=== PATIENT | female | born 1950 | race Caucasian/White ===

== ENCOUNTER 2023-11-22 12:00 | Inpatient (IN) | payer MEDICARE, OTHER, SELFPAY ==
[2023-11-22] VITALS (30 sets, daily range): BP systolic 93–126; BP diastolic 63–92; BMI 33.4
[2023-11-22] MEDS: LOW STRENGTH ASPIRIN 81 MG PO ×6 (08:05→08:36)
--- NOTE | 2023-11-22 11:45 | PTCARENOTE ---
Pt received in IVU from tutorial laboratory supervisor team. Pt had cardiac cath through R femoral artery - manual pressure held for extended period by tutorial laboratory supervisor team, dressing dry and intact. Pt has redness in groin and under abd folds - this is MASD and not new per
pt. Pt has no complaints, understands strict bedrest instructions, has good pulse and normal sensation in R leg.
--- NOTE | 2023-11-22 11:59 | ITS.CL.CATH ---
Tire [employer]er - Catheterization
Cardiac Catheterization
Procedure Report:
RIGHT AND LEFT HEART CATHETERIZATION
Date of Procedure: November 22, 2023
Primary Care Physician: Dr. Jessica De La Cruz
Primary Commis Chef: Dr. Dion Gastelum
Procedures performed:
1: Coronary angiography
2: Left ventricular hemodynamic assessment
3: Right heart catheterization
INDICATION: The patient is a 73-year-old woman with a past medical history of hypertension, insulin-dependent diabetes, gout, prior cellulitis, obesity, and severe aortic stenosis. Echocardiography performed in November 2022 showed preserved LV
function with a mean gradient of 47 mmHg and eccentric mild to moderate mitral regurgitation. She presented to the [facility] emergency room in August with congestive heart failure with new A-fib and rapid ventricular response. She was
rate controlled and diuresed and discharged. Attempts to restore normal sinus rhythm were unsuccessful and she was readmitted with recurrent heart failure on October 23. She was again diuresed over a 2-week hospitalization followed by 1 week in
rehab. Cardioversion on amiodarone was reattempted but she went back into atrial fibrillation. Since being home she has felt better but is still not back to her baseline.
ACCESS: The patient was prepped and draped in usual sterile fashion. A 6 Taiwanese sheath was placed in the right common femoral artery using the Seldinger over the wire technique. A 6 Taiwanese sheath was then placed in the right common femoral vein
using the same technique.
HEMODYNAMIC FINDINGS (mmHg):
BASELINE
RA(a,v,m):*, 28, 25 patient in atrial fibrillation with HR 105-120; given IV lopressor 5mg X 2 during case
RV(s/d,EDP): 65/20, 28
PA(s/d/m): 68/31, 50
PCWP(a,v,m):*, 44, 34
Oxygen Saturations (mg/dl):
PA: 38% on room air
LV: 92% on room air
Cardiac Output/Index (l/min / l/min/m2):
Estimated Deja Method: 2.1 / 1.2
POST NTG
LV(s/d,EDP): 161/1 61/22, 28
Ao(s/d,m): 138/94, 112
Oxygen Saturations (mg/dl):
PA: 98% on 2 L of oxygen by nasal cannula
LV: 47% on 2 L of oxygen by nasal cannula
Cardiac Output/Index (l/min / l/min/m2):
Estimated Deja Method: 2.2 .2
VALVE HEMODYNAMICS:
Aortic Valve
peak to peak gradient (mmHg): 24
mean gradient (mmHg): 23
valve area (cm2): 0.5
ANGIOGRAPHIC FINDINGS:
Single-plane Left Ventriculography performed in the BUSTAMANTE projection:
Coronary Angiography:
Dominance: Right
Left Main: Medium caliber, widely patent.
Left Anterior Descending: The left anterior descending artery is a medium caliber vessel that gives rise to 1 major diagonal branch. The LAD is highly calcified in the proximal and mid segments including the takeoff of the large first diagonal
branch. The diagonal branch has smooth proximal 30 to 40% disease with normal distal flow. The LAD itself has a calcified smooth 50 to 60% stenosis at the diagonal branch takeoff. This is followed by 2 sequential smooth 50 to 60% lesions in the
midportion. The distal LAD is widely patent with normal flow.
Ramus Intermedius: Medium caliber vessel that is patent with mild luminal irregularities and normal flow.
Left Circumflex: The left circumflex is a medium caliber vessel that is a medium caliber nondominant vessel. The vessel is fairly calcified throughout the midportion and heavy calcification is noted in the mitral annulus. The proximal circumflex
gives rise to a tiny first OM and has smooth 40% proximal stenosis. This is followed by heavily calcified 70 to 80% stenosis before the takeoff of a branching distal obtuse marginal branch that has ARIN-3 flow.
Right Coronary: The right coronary artery is a medium caliber dominant vessel that gives rise to a medium caliber posterior descending artery that is widely patent. The right coronary artery is also fairly heavily calcified in the AV groove however
there appears to be no flow-limiting disease with normal flow in all vessels.
Fluoroscopy Time (min): 13.2
Radiation Dose (mGy): 548
DAP (Gy.cm2): 52
Closure device: None. The femoral sheaths were pulled and hemostasis achieved with manual pressure alone.
Complications: None
ASSESSMENT:
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
2: Severe aortic stenosis in the setting of low cardiac output.
3: Markedly elevated pulmonary pressures in the setting of low cardiac output with elevated left ventricular filling pressures.
CONCLUSIONS and RECOMMENDATIONS:
1: Admit for IV diuresis and better rate control and atrial fibrillation. Given her very low cardiac output and elevated filling pressures on surprise she is clinically as stable as she appears. I suspect her EF is dropped as it was last assessed
by echo on September 01.
2: Plan to repeat transthoracic echo tomorrow and consider TAVR versus SAVR with and without coronary revascularization. May need MATTHIAS to better define mechanism of mitral regurgitation. Echocardiography performed in November 2022 suggested eccentric
mild to moderate mitral regurgitation in the setting of preserved LV systolic function and normal sinus rhythm suggesting that the severe mitral regurgitation may be more related to her A-fib/RVR and low cardiac output. If this is the case then
consideration for TAVR as the initial intervention seems more reasonable.
Kamilla Briggs M.D.
Copy to: Dr. Jessica De La Cruz
--- NOTE | 2023-11-22 12:41 | CM ---
Chart reviewed. Patient is independent of ADLS, lives alone in a [address], [address] [facility], ambulates with a SPC and a rolling walker, patient is current with [facility]. Referral sent to [facility] to return to care. Referral sent to [facility]. Plan is
for the patient to return home with [facility]. CM to follow
[2023-11-22] MEDS: NOVOLOG FLEXPEN-MODERATE RESISTANCE SC ×2 (12:51→16:42)
[2023-11-22 12:52] LABS: Glucose - Point of Care 106 mg/dl (70-99)
[2023-11-22] MEDS: LASIX 40 MG IV (15:43)
[2023-11-22 16:30] LABS: Glucose - Point of Care 111 mg/dl (70-99)
[2023-11-22] MEDS: TOPROL XL 100 MG PO (18:04)
[2023-11-22] MEDS: CLARITIN 10 MG PO (18:04)
[2023-11-22] MEDS: ALDACTONE 25 MG PO (18:05)
[2023-11-22] MEDS: LIPITOR 40 MG PO (18:05)
[2023-11-22] MEDS: DESENEX/MITRAZOL/ZEASORB 1 APPLIC TOPICAL (20:02)
[2023-11-22] MEDS: TYLENOL 650 MG PO (20:02)
[2023-11-22] MEDS: GLUCOTROL 10 MG PO (20:02)
[2023-11-22 20:18] LABS: Urine Albumin Negative (Neg - Trace); Urine Bilirubin Negative (Negative); Urine Character Clear (Clear); Urine Color Yellow; Urine Glucose Negative (Negative); Urine Ketone Negative (Negative); Urine Leukocyte Negative (Negative); Urine Nitrite Negative (Negative); Urine Occult Blood Trace (Negative); Urine Specific Gravity 1.005 (<1.030); Urine Urobilinogen Negative (Neg - 1+)
--- NOTE | 2023-11-22 20:18 | PTCARENOTE ---
Pt developed cough and temp 99.7. No respiratory distress - SPO2 95% on room air. PA-C made aware - covid/flu/urinalysis sent to lab. Chest xray ordered for AM. Tylenol given.
[2023-11-22 20:25] LABS: Urine Squamous Cell >30 /LPF (Few)
[2023-11-22 20:26] LABS: Urine Red Blood Cell 0-2 /HPF (0-2); Urine White Cell 0-2 /HPF (0-5)
[2023-11-22 20:32] LABS: COVID-19 Antigen Negative (Negative)
[2023-11-22 21:10] LABS: Glucose - Point of Care 199 mg/dl (70-99)
[2023-11-22] MEDS: LEVEMIR 0.100000000000000006 UNITS SC (21:35)
[2023-11-23] VITALS (12 sets, daily range): BP systolic 92–123; BP diastolic 59–105; BMI 34.0
[2023-11-23 03:16] LABS: Hematocrit 39.5 % (37.0-47.0); Hemoglobin 12.9 g/dL (12.0-16.0); Mean Corp Hgb Conc. 32.7 g/dL (33.0-37.0); Mean Corpuscular Hgb 30.1 pg (27.0-31.0); Mean Corpuscular Volume 92.1 fL (81.0-99.0); Mean Platelet Volume 10.1 fL (7.4-10.4); Platelet Count 179 10^3/uL (130-400); Red Blood Cell Count 4.29 10^6/uL (4.20-5.40); Red Cell Dist. Width 14.4 % (11.5-14.5); White Blood Cell Count 7.1 10^3/uL (4.8-10.8)
[2023-11-23 03:31] LABS: Blood Urea Nitrogen 34 mg/dl (7-17); Calcium 8.9 mg/dl (8.4-10.2); Carbon Dioxide 26 mmol/L (22-30); Chloride 103 mmol/L (98-107); Estimated Creatinine Clearance 79 ml/min; Glucose 113 mg/dl (70-99); HDL Cholesterol 24 mg/dl; LDL Cholesterol, Calculated 36 mg/dl; Potassium 3.7 mmol/L (3.5-5.1); Sodium 138 mmol/L (135-145); Total Cholesterol 87 mg/dl (50-199); Triglyceride 139 mg/dl (10-149); Very Low Density Lipoprotein 27 mg/dl (0-30); eGFR > 60.00
--- NOTE | 2023-11-23 08:22 | W.PN.CARDCBS ---
Addendum entered and electronically signed by Idania Jasso MD 11/23/23 13:01:
I saw and examined the patient.
The Production Honing Machine Operator's note was reviewed and I agree with the note.
Comment:
No current complaints.
Patient with acute HFpEF - post LHC/RHC with LAD and LCx stenosis, markedly elevated filling pressures PCWP 34
Continue IV diuresis. Follow electrolytes.
Aortic valve stenosis and coronary disease as detailed below. Await echocardiogram to reassess mitral regurgitation which has varied from mild to moderate to moderate to severe at times. May eventually need MATTHIAS.
Productive Cough and Temp 99.6 with abnormal CXR left base opacity, COVID/Flu neg. Appreciate hospitalist consult.
Atrial fibrillation with increased rates. Metoprolol twice daily. She does have some wheezing. Continue to follow. No history of lung disease.
No current chest pain. Continue risk factor modification of two-vessel coronary disease. SAVR/CABG versus TAVR with PCI
Original Note:
Today's Communication / Plan
-
TTE today
c/s Hospitalist for ? pneumonia
continue IV diuresis, replete lytes
heart team to discuss plan for CAD/Valvular disease
Impression / Plan
-
Primary Care Physician: Dr. Jessica De La Cruz
Primary Company Truck Driver: Dr. Dion Gastelum
73-year-old woman with a past medical history of hypertension, insulin-dependent diabetes, gout, prior cellulitis, obesity, and severe aortic stenosis.� Echocardiography performed in November 2022 showed preserved LV function with a mean gradient of 47
mmHg and eccentric mild to moderate mitral regurgitation.� She presented to the [facility] emergency room in August with congestive heart failure with new A-fib and rapid ventricular response.� She was rate controlled and diuresed and
discharged.� Attempts to restore normal sinus rhythm were unsuccessful and she was readmitted with recurrent heart failure on October 23.� She was again diuresed over a 2-week hospitalization followed by 1 week in rehab.� Cardioversion on amiodarone
was reattempted but she went back into atrial fibrillation.� Since being home she has felt better but is still not back to her baseline.
Impression:
Acute on chronic HFpEF 50-55% by Echo August
Symptomatic Afib with RVR
2V CAD by cath 11/22/23
Severe Aortic stenosis MG 23mmHg, HOMERO 0.5cm2
Moderate - severe MR
HTN
HLD
DM
GERD
Gout
Plan:
Acute HFpEF - post LHC/RHC with LAD and LCx stenosis, markedly elevated filling pressures PCWP 34
Admitted for IV diuresis lasix 40 bid, continue, replete electrolytes, Check Mg
continue spironolactone metoprolol, not on PHILIP/ARB d/t low bp
Echo today to reassess EF as I suspect it has dropped
Productive Cough - o/n Temp 99.6 with abnormal CXR left base opacity, COVID/Flu neg, will check sputum cx, will c/s hospitalist
MR/ - Severe with low cardiac output. Echo today to reassess EF with low CI 1.2 and MR as it may be more severe
Echocardiography performed in November 2022 suggested eccentric mild to moderate mitral regurgitation in the setting of preserved LV systolic function and normal sinus rhythm suggesting that the severe mitral regurgitation may be more related to her
A-fib/RVR and low cardiac output.
If TTE today shows more severe MR, may need MATTHIAS for planning PCI/TAVR vs SAVR/CABG/MVR
uncontrolled Afib - rates still elevated, metoprolol xl increased to 100mg bid,
resume anticoagulation this am, groin stable
CAD - continue ASA, Statin LDL 36, metoprolol, poss PCI with TAVR if MR not severe
DM2- continue SSI, Levemir, glipizide, A1c pending
Progress Note - Company Truck Driver
Subjective
Date of Service: November 23, 2023
o/n events noted, productive cough with donald sputum, no cp, mild dyspnea
Objective
Labs:
11/23/23 02:16
11/23/23 02:16
Labs
Hgb 12.9 g/dL (12.0-16.0) 11/23/23 02:16
Hct 39.5 % (37.0-47.0) 11/23/23 02:16
Plt Count 179 10^3/uL (130-400) 11/23/23 02:16
Sodium 138 mmol/L (135-145) 11/23/23 02:16
Potassium 3.7 mmol/L (3.5-5.1) 11/23/23 02:16
BUN 34 mg/dl (7-17) H 11/23/23 02:16
Creatinine 0.6 mg/dL (0.6-1.0) 11/23/23 02:16
Glucose 113 mg/dl (70-99) H 11/23/23 02:16
Vital Signs and I&O:
Vital Signs
Temp Pulse Resp BP Pulse Ox
97.9 F 89 20 112/87 97
11/23/23 06:58 11/23/23 04:00 11/23/23 06:58 11/23/23 02:04 11/23/23 06:58
Vital Signs
Temp Pulse Resp BP Pulse Ox
97.9 F 89 20 112/87 97
11/23/23 06:58 11/23/23 04:00 11/23/23 06:58 11/23/23 02:04 11/23/23 06:58
Intake & Output
11/21/23 11/22/23 11/23/23 11/24/23
06:59 06:59 06:59 06:59
Intake Total 400 / 400
Output Total 850 / 850
Balance -450 / -450
Physical Exam
Physical Exam
NAD< AOX3
S1, S2, irreg irreg, III/ BARTOLO
coarse t/o with exp wheezes, bibasilar rales
SNTND bsx4 obese
No LE edema
R fem site
[2023-11-23 08:54] LABS: Glycohemoglobin (HgbA1c) 9.2 % (4.0-5.6)
[2023-11-23] MEDS: PROTONIX 40 MG PO (08:54)
[2023-11-23] MEDS: GLUCOTROL 10 MG PO (08:54)
[2023-11-23] MEDS: KCL 20 MEQ PO (08:54)
[2023-11-23] MEDS: TOPROL XL 100 MG PO ×2 (08:54→20:05)
[2023-11-23 08:55] LABS: Glucose - Point of Care 142 mg/dl (70-99)
[2023-11-23] MEDS: NOVOLOG FLEXPEN-MODERATE RESISTANCE SC (08:55)
[2023-11-23] MEDS: LASIX 40 MG IV ×2 (08:55→15:33)
[2023-11-23 08:59] LABS: Magnesium 1.7 mg/dl (1.6-2.3)
[2023-11-23] MEDS: DESENEX/MITRAZOL/ZEASORB 1 APPLIC TOPICAL ×2 (10:25→20:05)
[2023-11-23] MEDS: ELIQUIS 5 MG PO ×2 (10:26→20:05)
[2023-11-23 10:34] LABS: Procalcitonin < 0.05 ng/ml (0.0-0.25)
--- NOTE | 2023-11-23 11:40 | CON.HOSP ---
Family Physician
-
Family Physician: Jessica De La Cruz
Chief Complaint
-
Possible PNA
History of Present Illness
73 y/o F with PMHx:
Essential hypertension
DM2
Gout
Obesity due to excess calories
Severe
Mild-mod MR
Chronic HFpEF
CAD
HLD
GERD
Afib with RVR
who is hospitalized for A-fib with RVR and acute on chronic heart failure with preserved ejection fraction. Patient presented to the hospital for elective cardiac catheterization yesterday. She was in A-fib with RVR and felt to be in acute on
chronic heart failure with preserved ejection fraction and was therefore admitted. She also had two-vessel disease on cardiac cath as well as valvular disease that needed further investigation. The patient reported cough productive of thick
sputum. Since they gave her a sputum collection bottle this morning she has not had any sputum production. She denies chest pain, shortness of breath, nausea, vomiting, diarrhea, fevers, headache, visual disturbances, neck stiffness, rash, focal
neurological deficit, dysuria.
Medical History
Past Medical History
Past Medical History: Reports Other ( as per HPI)
Past Surgical History: Reports Other (N/A)
Social History
Tobacco: Non-smoker
Alcohol: None
Drug: None
Family History
Family History: Reviewed & Not Pertinent
Allergies / Home Medications
Allergies reflects when Allergies were last updated in [employer]
Home Medications with original date entered in [employer]
Allergy/Medication List:
Allergies
Allergy/AdvReac Type Severity Reaction Status Date / Time
hylan G-F 20 Allergy Swelling Verified 11/22/23 08:15
Home Medications
acetaminophen 325 mg capsule (Tylenol) 325 mg PO ONCE 11/22/23
apixaban 5 mg tablet (Eliquis) 5 mg PO BID 11/22/23
bumetanide 2 mg tablet 2 mg PO DAILY 11/22/23
coQ10 (ubiquinol) 100 mg capsule 100 mg PO DAILY 11/22/23
glipizide 10 mg tablet 10 mg PO BID 11/22/23
hydrocodone 5 mg-acetaminophen 325 mg tablet 1 tab PO Q6HPRN PRN PAIN 11/22/23
insulin detemir U-100 100 unit/mL (3 mL) subcutaneous pen (Levemir FlexPen) 10 unit SC HS 11/22/23
loratadine 10 mg tablet (Claritin) 10 mg PO QPM 11/22/23
meclizine 25 mg tablet 25 mg PO TIDPRN PRN dizzy 11/22/23
methocarbamol 500 mg tablet 500 mg PO TIDPRN PRN muscle spasm 11/22/23
metoprolol succinate 50 mg tablet,extended release 24 hr 75 mg PO BID 11/22/23
multivitamin 1 tab PO DAILY 11/22/23
omeprazole 20 mg tablet,delayed release 20 mg PO DAILY 11/22/23
oxybutynin chloride 10 mg tablet,extended release 24 hr 10 mg PO DAILY 11/22/23
simvastatin 40 mg tablet 40 mg PO QPM 11/22/23
spironolactone 25 mg tablet 25 mg PO QPM 11/22/23
tramadol 50 mg tablet 50 mg PO TIDPRN PRN PAIN 11/22/23
zolpidem 10 mg tablet (Ambien) 10 mg PO HSPRN PRN SLEEP 11/22/23
Review of Systems
-
History Source: Patient
A 12 point Review of Systems was completed except as noted: Yes
Physical Exam
Vital Signs
Vital Signs
Temp Pulse Resp BP Pulse Ox
97.9 F 113 20 123/79 97
11/23/23 06:58 11/23/23 11:00 11/23/23 06:58 11/23/23 07:00 11/23/23 06:58
Physical Exam
General: Other (.)
Laboratory Results
-
Laboratory Results
11/23/23 02:16
11/23/23 02:16
Impression / Plan
-
Gen: NAD, AAOx3.
Eyes: EOMI, PERRLA, no scleral icterus.
Neck: supple.
CV: tachy, irreg/irreg, +S1/S2, no m/r/g.
Resp: wheezes and rhonchi B/L
Abd: +BS, soft, NT, ND
Skin: No rashes. No LE edema.
Neuro: CN 2-12 intact, non-focal.
Psych: Normal mood and affect.
RHC/LHC 11/22/23:
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
2: Severe aortic stenosis in the setting of low cardiac output.
3: Markedly elevated pulmonary pressures in the setting of low cardiac output with elevated left ventricular filling pressures.
Productive cough:
-CXR: Minor left basilar opacification which could represent subsegmental atelectasis and/or pneumonia.
-procal < 0.05
-no documented fever this admission
-No leukocytosis
-no evidence of bacterial PNA at this time
-recommend incentive spirometer
Acute on chronic HFpEF:
-cont IV Lasix, daily wts, I/Os
-echo today
-cont BB/Aldactone
DM2:
-poorly controlled with a1c 9.2%
-Stop Glipizide while hospitalized. With A1c greater than 9% will likely be discharged on insulins only (and possibly metformin pending use of IV contrast)
-Will need Lantus tonight even if NPO (recommend to continue 10U)
-cont SSI/accuchecks
-c/s certified lactation educator
Afib with RVR:
-cont BB (higher than home dose)/Eliquis
Other problems:
Gout
Obesity due to excess calories: Encourage wt loss. Affects all aspects of care.
Severe
Mild-mod MR: Echo today to address severity of mitral regurgitation in the setting of low cardiac index.
CAD: 2V disease as per cath 11/22/23. Cont BB/statin
HLD: cont statin
GERD: Cont PPI
Primary team updated over the phone.
FULL/Eliquis
[2023-11-23] MEDS: MAGNESIUM OXIDE 500 MG PO (12:07)
[2023-11-23 13:45] LABS: Glucose - Point of Care 167 mg/dl (70-99)
--- NOTE | 2023-11-23 13:52 | PN.DE.MGMTRT ---
Insulin Management
- -
11/23/2023 Diabetes Management Consult
Patient s/p cardiac cath 11/21 with possible lll pneumonia. PMH HTN, aortic stenosis, HLD, type 2 diabetes. Prior to admission was taking levemir 10 units @ hs and glipizide 10 mg BID. A1C is 9.2%, cr .6, eGFR > 60.
Patient is alert, oriented and able to participate in discussion about diabetes control. She states she feels her A1C is elevated because she was getting meals on wheels and often it was pasta or sandwiches. Discussed starting Jardiance or Farxiga
based on cost. She is agreeable if she can afford it. Discussed if it is cost prohibitive for her we could stop levemir and start lantus which may provide 24 hour glucose lowering benefit. She again is agreeable. She does have a working glucose
monitor at home.
Diabetes History
- -
Type of Diabetes: 2
Pre-Admission Diabetes Regimen
11/23/23
02:16
Creatinine 0.6
Lab Results
Hemoglobin A1c 9.2 % (4.0-5.6) H 11/23/23 02:16
Insulin Pump Settings
IP Diabetes Regimen
11/22/23 11/22/23 11/23/23
16:29 21:09 02:16
Glucose 113 H
POC Glucose 111 H 199 H
11/23/23 11/23/23
08:53 13:44
Glucose
POC Glucose 142 H 167 H
Meal type: Breakfast
Meal type: Dinner
Amount consumed: 100%
Amount consumed: 100%
Patient Education
--- NOTE | 2023-11-23 14:25 | W.PN.UPDATE ---
Update Note
Progress Note Update
Patient with tachycardia, HRs in the 140s. Due to wheezing will leave Toprol XL at 100 mg BID and add Cardizem gtt starting at 10 mg/hr then titrate. Will ask echo team to check again later today to see if HR has improved and they can do echo.
--- NOTE | 2023-11-23 14:54 | CM ---
Pricing on Jardiance is $144.33 for 30 days
Farxiga is $137.51 for 30 days
Dapagliflozin is not covered.
Patient is agreeable to all costs. I placed a free 30 day coupon of Farxiga in her red discharge folder
[2023-11-23] MEDS: NOVOLOG FLEXPEN-MODERATE RESISTANCE 1 UNITS SC ×2 (15:20→18:07)
[2023-11-23] MEDS: FARXIGA PO (15:26)
[2023-11-23] MEDS: FARXIGA 10 MG PO (15:32)
[2023-11-23] MEDS: CARDIZEM 125 IV (15:32)
[2023-11-23] MEDS: CLARITIN 10 MG PO (17:35)
[2023-11-23] MEDS: LIPITOR 40 MG PO (17:35)
[2023-11-23] MEDS: ALDACTONE 25 MG PO (17:39)
[2023-11-23 17:57] LABS: Glucose - Point of Care 185 mg/dl (70-99)
--- NOTE | 2023-11-23 18:13 | PTCARENOTE ---
Pt sat OOB in chair most of the day. She remains in A-fib, Cardizem drip started this afternoon as ordered. HR 80-110's
[2023-11-23 19:08] LABS: Hepatitis C Antibody Negative (Negative)
[2023-11-23 21:24] LABS: Glucose - Point of Care 237 mg/dl (70-99)
--- NOTE | 2023-11-23 21:47 | PTCARENOTE ---
Assumed care. Patient in chair. A-FIB on Cardizem IV HR 81. Son at bedside, call nolen in reach
[2023-11-23] MEDS: TYLENOL 650 MG PO (23:17)
[2023-11-23] MEDS: LEVEMIR 0.100000000000000006 UNITS SC (23:17)
[2023-11-24] VITALS (8 sets, daily range): BP systolic 93–123; BP diastolic 68–90; PULSE 90–135; O2SAT 98; BMI 34.1
--- NOTE | 2023-11-24 00:05 | PTCARENOTE ---
Patient in bed resting. Tylenol given for arthritis in her knees. Howell sputum collected and sent. Cardizem infusing at 10mg/hr. Coughing intermittently, crackles right base, course breath sounds clears with coughing, denies SOB, POX 95% on room air
[2023-11-24] MEDS: CARDIZEM 125 IV (01:07)
[2023-11-24 04:05] LABS: Hematocrit 36.2 % (37.0-47.0); Hemoglobin 12.2 g/dL (12.0-16.0); Mean Corp Hgb Conc. 33.7 g/dL (33.0-37.0); Mean Corpuscular Volume 88.9 fL (81.0-99.0); Mean Platelet Volume 10.1 fL (7.4-10.4); Platelet Count 170 10^3/uL (130-400); Red Blood Cell Count 4.07 10^6/uL (4.20-5.40); Red Cell Dist. Width 14.2 % (11.5-14.5); White Blood Cell Count 6.6 10^3/uL (4.8-10.8)
[2023-11-24 04:29] LABS: Blood Urea Nitrogen 36 mg/dl (7-17); Calcium 9.2 mg/dl (8.4-10.2); Carbon Dioxide 23 mmol/L (22-30); Chloride 101 mmol/L (98-107); Estimated Creatinine Clearance 69 ml/min; Glucose 138 mg/dl (70-99); Magnesium 1.7 mg/dl (1.6-2.3); Potassium 3.5 mmol/L (3.5-5.1); Sodium 138 mmol/L (135-145); eGFR > 60.00
[2023-11-24 06:46] LABS: Glucose - Point of Care 112 mg/dl (70-99)
--- NOTE | 2023-11-24 07:15 | PN.DE.MGMTRT ---
Insulin Management
- -
11/24/2023 Diabetes Management Follow up
Patient s/p cardiac cath 11/21 with possible lll pneumonia. PMH HTN, aortic stenosis, HLD, type 2 diabetes. Prior to admission was taking levemir 10 units @ hs and glipizide 10 mg BID. A1C is 9.2%, cr .6, eGFR > 60.
Patient is alert, oriented and able to participate in discussion about diabetes control.
CM able to find cost of Farxiga which patient is agreeable to. Will continue Farxiga 10 mg daily. Only one elevation in glucose, 237 @ HS. Patient is NPO this AM, will continue current regimen.
Diabetes History
- -
Type of Diabetes: 2
Pre-Admission Diabetes Regimen
11/24/23
03:54
Creatinine 0.7
Lab Results
Hemoglobin A1c 9.2 % (4.0-5.6) H 11/23/23 02:16
Insulin Pump Settings
IP Diabetes Regimen
11/23/23 11/23/23 11/23/23
08:53 13:44 17:56
Glucose
POC Glucose 142 H 167 H 185 H
11/23/23 11/24/23 11/24/23
21:23 03:54 06:45
Glucose 138 H
POC Glucose 237 H 112 H
Meal type: Dinner
Meal type: Lunch
Meal type: Breakfast
Amount consumed: 100%
Amount consumed: 100%
Amount consumed: 100%
Patient Education
[2023-11-24] MEDS: NOVOLOG FLEXPEN-MODERATE RESISTANCE SC (07:37)
[2023-11-24] MEDS: DESENEX/MITRAZOL/ZEASORB 1 APPLIC TOPICAL ×2 (07:51→19:44)
[2023-11-24] MEDS: KCL 20 MEQ PO (07:52)
[2023-11-24] MEDS: TOPROL XL 100 MG PO ×2 (07:52→19:44)
[2023-11-24] MEDS: MAGNESIUM OXIDE 500 MG PO (07:52)
[2023-11-24] MEDS: PROTONIX 40 MG PO (07:52)
[2023-11-24] MEDS: ELIQUIS 5 MG PO ×2 (07:52→19:44)
[2023-11-24] MEDS: FARXIGA 10 MG PO (07:52)
[2023-11-24] MEDS: LASIX 40 MG IV (07:54)
--- NOTE | 2023-11-24 09:40 | CONSULT.CT ---
Addendum entered and electronically signed by PREETI Ray 11/24/23 14:44:
addition to PMH: uterine cancer s/p HERIBERTO, no chemo/XRT
Original Note:
Consultation
-
Date/Time Consultation Requested: 11/23
Date/Time Consultation Performed: 11/23 @ 1000
Requesting Provider: Franc Briggs
Performing Provider: Susy Avery
Reason for Consultation: surgical evaluation for aortic stenosis and coronary disease
Patient History
Physicians
Family Physician: Dorothy Lopez
Outpatient Ping Pong Table Assembler: Dr Gastelum
Inpatient Ping Pong Table Assembler: Dr. Briggs
History of Present Illness
Alyson Martinez is a 73 year old female electively admitted 11/21 for cardiac catheterization which reported two-vessel coronary disease. She was found to be in A-fib with rapid ventricular response and in acute on chronic heart failure, so was
admitted for further treatment. Patient with known aortic stenosis since 2022 and recent admission for decompensated heart failure in August 2023. She was aggressively diuresed and discharged. Patient was admitted to [facility] in
October 2023 with 30 pound weight gain and shortness of breath/fatigue. Patient underwent unsuccessful cardioversion (on Amiodarone) x 2. Mrs. Martinez was discharged to rehab x 1 week then discharged from rehab on . Patient reports a 30 pound
weight loss since August and currently requires walker for ambulatory assistance. Her baseline ambulatory status requires use of a cane. She is able to perform activities of daily living independently. Patient states she is limited with
ambulation due to her lumbar stenosis.
Past Medical History
Past Medical History: Other
Aortic stenosis
Mitral regurgitation
Hypertension
Hyperlipidemia
Obesity (BMI 34)
Atrial fibrillation status post cardioversion 2022
Chronic HFrEF (35%)
Type 2 diabetes (A1c 9.4)
Lumbar stenosis
Ambulatory dysfunction (uses cane)
Past Surgical History
Past Surgical History: Other
Bilateral knee replacements
Bilateral cataract extraction with intraocular lens implants
Cervical laminectomy C4-5
Family History
Mother: at Age
Father: at Age
Social History
Alcohol: None
Drug: None
Tobacco: Non-Smoker
Personal:
Living: Alone
Employment: Retired
Allergies
Allergy/AdvReac Type Severity Reaction Status Date / Time
hylan G-F 20 Allergy Swelling Verified 11/22/23 08:15
Home Medications
Medication Instructions Recorded Confirmed Type
acetaminophen 325 mg capsule 325 mg PO ONCE 11/22/23 11/22/23 History
(Tylenol)
apixaban 5 mg tablet (Eliquis) 5 mg PO BID 11/22/23 11/22/23 History
bumetanide 2 mg tablet 2 mg PO DAILY 11/22/23 11/22/23 History
coQ10 (ubiquinol) 100 mg capsule 100 mg PO DAILY 11/22/23 11/22/23 History
glipizide 10 mg tablet 10 mg PO BID 11/22/23 11/22/23 History
hydrocodone 5 mg-acetaminophen 325 1 tab PO Q6HPRN PRN PAIN 11/22/23 11/22/23 History
mg tablet
insulin detemir U-100 100 unit/mL 10 unit SC HS 11/22/23 11/22/23 History
(3 mL) subcutaneous pen (Levemir
FlexPen)
loratadine 10 mg tablet (Claritin) 10 mg PO QPM 11/22/23 11/22/23 History
meclizine 25 mg tablet 25 mg PO TIDPRN PRN dizzy 11/22/23 11/22/23 History
methocarbamol 500 mg tablet 500 mg PO TIDPRN PRN muscle spasm 11/22/23 11/22/23 History
metoprolol succinate 50 mg 75 mg PO BID 11/22/23 11/22/23 History
tablet,extended release 24 hr
multivitamin 1 tab PO DAILY 11/22/23 11/22/23 History
omeprazole 20 mg tablet,delayed 20 mg PO DAILY 11/22/23 11/22/23 History
release
oxybutynin chloride 10 mg 10 mg PO DAILY 11/22/23 11/22/23 History
tablet,extended release 24 hr
simvastatin 40 mg tablet 40 mg PO QPM 11/22/23 11/22/23 History
spironolactone 25 mg tablet 25 mg PO QPM 11/22/23 11/22/23 History
tramadol 50 mg tablet 50 mg PO TIDPRN PRN PAIN 11/22/23 11/22/23 History
zolpidem 10 mg tablet (Ambien) 10 mg PO HSPRN PRN SLEEP 11/22/23 11/22/23 History
Review of Systems
-
History Source: Patient
General: Reports Weight Gain and Fatigue
HEENT: Reports No Symptoms and Other (last dental exam: 2022 (no active infection))
Respiratory: Reports SOB (with exertion)
Cardiac: Reports No Symptoms
Abdomen/GI: Reports No Symptoms
: Reports No Symptoms
Musculoskeletal: Reports No Symptoms
Skin: Reports No Symptoms
Neurological: Reports No Symptoms
Vascular: Reports No Symptoms
Physical Exam
Vital Signs
Temp 97.5 F 11/24/23 06:43
Temp route: Oral 11/24/23 06:43
Pulse 68 11/24/23 07:00
Rhythm: Atrial fibrillation 11/23/23 20:00
With- Bundle Branch Block Confi 11/23/23 08:28
Resp Rate 16 11/24/23 06:43
Blood pressure 123/73 11/24/23 06:43
Blood pressure extremity used: Right upper arm 11/24/23 06:43
Position: Lying 11/24/23 06:43
MAP (cuff-Jose Monitor) 89 11/24/23 06:43
SaO2 93 11/24/23 06:43
Oxygen Mode of Delivery Room air 11/24/23 06:43
Can the patient verbally communicate their pain? Yes 11/24/23 00:17
Pain scale rating: Asleep 11/24/23 00:17
Actual Weight 79.2 kg 11/24/23 03:40
Body Mass Index (BMI) 34.1 11/24/23 03:40
Labs
11/24/23 03:54
11/24/23 03:54
Hemoglobin A1c 9.2 % (4.0-5.6) H 11/23/23 02:16
Urinalysis
Urine Color Yellow 11/22/23 20:10
Urine Clarity Clear (Clear) 11/22/23 20:10
Urine pH 7.0 (5.0-9.0) 11/22/23 20:10
Ur Specific [place] 1.005 (<1.030) 11/22/23 20:10
Urine Ketones Negative (Negative) 11/22/23 20:10
Ur Occult Blood Reflex Trace (Negative) A 11/22/23 20:10
Urine Bilirubin Negative (Negative) 11/22/23 20:10
Leukocyte Esterase Rfl Negative (Negative) 11/22/23 20:10
Urine RBC 0-2 /HPF (0-2) 11/22/23 20:10
Urine WBC (Reflex) 0-2 /HPF (0-5) 11/22/23 20:10
Ur Squamous Epith Cells >30 /LPF (Few) 11/22/23 20:10
Urine Glucose Negative (Negative) 11/22/23 20:10
Urine Albumin (Reflex) Negative (Neg - Trace) 11/22/23 20:10
Diagnostic Studies
Right and left heart catheterization 11/22/23:
RA 25; PA 68/31 (50); PCW 44; cardiac output 2.1/cardiac index 1.2
Left main: OK
LAD: 50-60% at diagonal takeoff with 50-60% mid stenosis
Ramus intermedius: Okay
Circumflex: 70-80% prior to distal OM
RCA: OK
TTE 11/22:
EF 35-40%
Dilated left atrium. Mildly reduced RV function. Mild mitral stenosis with mitral valve gradients 10/4. Moderate MR. Mild TR. Severe aortic stenosis with gradients 56/35 mmHg. HOMERO 0.75 cm. No AI. Mild PI
Exam
General: Well Developed, Well Nourished and Comfortable
HEENT: Normocephalic and PERRLA
Neck: Carotid Bruit (+transmission of murmur to base carotids)
Respiratory: Clear
Cardiac: S1/S2, Irregular Rhythm and Murmur (III/ BARTOLO right 2nd ICS>radiates throughout precordium)
GI: Soft, Non Tender, Normal Bowel Sounds and Other (Obese with pannus)
Rectal: Deferred by Provider
Skin: Warm and Dry
Neuro: AO x 3, No Motor Deficits and Nonfocal/Grossly Intact
Extremities: Pulses (+2/4 DP pulses B/L)
Lymph: No Lymphadenopathy
Psych: Calm
Assessment / Plan
-
73-year-old female with severe aortic stenosis, mild mitral stenosis with moderate mitral regurgitation, two-vessel coronary artery disease, chronic atrial fibrillation and HFrEF (EF 35%).
- CT chest w/o contrast to evaluate coronary anatomy and aortic valve
- Preoperative PT/OT evaluation
- panelipse
- carotid US
- STS risk calculation 8-10%
- Dr. Najera to discuss case with cardiology to determine TAVR/coronary stent/ablation versus open AVR/MVR/maze/left atrial exclusion/coronary bypass
Data Reviewed
-
EKG: Report Reviewed by me and Discussed with Physician
Composition Professor: Report Reviewed by me and Discussed with Physician
Echo: Report Reviewed by me and Discussed with Physician
Radiology: Report Reviewed by me and Discussed with Physician
Labs: Labs Reviewed by me and Discussed with Physician
--- NOTE | 2023-11-24 10:03 | W.PN.CARDCBS ---
Addendum entered and electronically signed by Alex Girard MD 11/24/23 15:00:
I saw and examined the patient.
The PANTRY ATTENDANT or PA's note was reviewed and I agree with the note.
Comment: General: Well developed, well nourished in NAD.
Neck: Supple, no JVD, HJR, carotids +2 B/L, no bruits bilaterally.
Heart: Non displaced PMI, irregular, 2/6 basal systolic murmur, No S3, S4, no rubs.
Lungs: Scattered rhonchi
Extremities: No clubbing, cyanosis or edema bilaterally.
Neuro: Grossly nonfocal, awake, alert and oriented x3.
Will try higher dose of IV Lasix 60 mg twice daily. Discussed with CT surgery as well as interventional cardiology and patient's primary eggs inspector Dr. Dion Gastelum. Will do MATTHIAS on Sunday 11/26 to further assess mitral regurgitation. If MR
appears functional and would improve with aortic valve surgery we will consider TAVR with possible PCI of LAD and circumflex before procedure. If patient has MR that is structural might consider AVR/MVR with CABG. With regards to atrial
fibrillation we will discontinue Cardizem given reduced ejection fraction and start amiodarone for rate control. Might consider eventual PVI or maze if patient has open heart surgery.
Addendum entered and electronically signed by Libby eJan PA-C 11/24/23 12:23:
Correction to below: A-fib felt to be persistent. Initially occurred 08/2023. Status post cardioversion twice with subsequent recurrence. Had been on Amio, however then was stopped with plan for rate control after 2 failed cardioversions.
Original Note:
Today's Communication / Plan
-
CT surgical eval
increase IV lasix to 60mg BID
replete K
consider addition of po amio, will attempt to wean off IV cardizem gtt as permanent AF
Impression / Plan
-
Primary Care Physician: Dr. Jessica De La Cruz
Primary Electrical And Electronic Assembler: Dr. Dion Gastelum
73-year-old woman with a past medical history of hypertension, insulin-dependent diabetes, gout, prior cellulitis, obesity, and severe aortic stenosis.� Echocardiography performed in November 2022 showed preserved LV function with a mean gradient of 47
mmHg and eccentric mild to moderate mitral regurgitation.� She presented to the [facility] emergency room in August with congestive heart failure with new A-fib and rapid ventricular response.� She was rate controlled and diuresed and
discharged.� Attempts to restore normal sinus rhythm were unsuccessful and she was readmitted with recurrent heart failure on October 23.� She was again diuresed over a 2-week hospitalization followed by 1 week in rehab.� Cardioversion on amiodarone
was reattempted but she went back into atrial fibrillation.� Since being home she has felt better but is still not back to her baseline.
Impression:
Acute on chronic HFpEF
Symptomatic Permanent Afib with RVR
2V CAD by cath 11/22/23
Severe Aortic stenosis MG 23mmHg, HOMERO 0.5cm2
Moderate - severe MR
HTN
HLD
DM
GERD
Gout
ECHO 11/23/2023: EF 35 to 40%, global hypokinesis, severely enlarged LA, moderately enlarged RA, mild MS with peak/mean gradients of 10/4 mmHg, moderate eccentric MR, severe with peak/mean gradients 56/35 mmHg, HOMERO 0.75 cm�, no AR, mild OK. New
reduction in EF compared to prior echo
Plan:
-Patient went left and right heart cath 11/23/2023 with LAD and left circumflex stenosis
-Also noted to have wedge of 34 and admitted post cath for diuresis. If weights are accurate, she is up a pound overnight. She was taking Bumex 2 mg p.o. daily prior to admission. Will increase diuretics to IV Lasix 60 mg twice daily.
-remains with wheezing on exam. no history of lung disease. ? cardiac wheezing. continue diuresis. appreciate hospitalist input, no evidence of bacterial PNA. covid/flu negative
-Creatinine stable. Replete potassium
-given echo with new reduction in EF - 35-40%, continue toprol, aldactone, farxiga. not able to add jonnathan/arb/arni due to hypotension
-was rapid in permanent afib yesterday afternoon and started on IV cardizem gtt. HRs now improved. on toprol 100mg BID. consider addition of po amiodarone for additional rate control and will attempt to DC IV cardizem gtt
-continue eliquis
-CT surgery to evaluate 2 V CAD/severe /mod MR - CABG/SAVR+/-MVR or TAVR/PCI
-continue asa, statin
-appreciate hospitalist mgmt of diabetes. hgbA1c 9.2%.
-d/w CT surgery
Progress Note - Electrical And Electronic Assembler
Subjective
Date of Service: November 24, 2023
Remains with wheezing. Denies chest pain, shortness of breath, palpitations
Objective
Labs:
11/24/23 03:54
11/24/23 03:54
Labs
Hgb 12.2 g/dL (12.0-16.0) 11/24/23 03:54
Hct 36.2 % (37.0-47.0) L 11/24/23 03:54
Plt Count 170 10^3/uL (130-400) 11/24/23 03:54
Sodium 138 mmol/L (135-145) 11/24/23 03:54
Potassium 3.5 mmol/L (3.5-5.1) 11/24/23 03:54
BUN 36 mg/dl (7-17) H 11/24/23 03:54
Creatinine 0.7 mg/dL (0.6-1.0) 11/24/23 03:54
Glucose 138 mg/dl (70-99) H 11/24/23 03:54
Vital Signs and I&O:
Vital Signs
Temp Pulse Resp BP Pulse Ox
97.5 F 68 16 123/73 93
11/24/23 06:43 11/24/23 07:00 11/24/23 06:43 11/24/23 06:43 11/24/23 06:43
Vital Signs
Temp Pulse Resp BP Pulse Ox
97.5 F 68 16 123/73 93
11/24/23 06:43 11/24/23 07:00 11/24/23 06:43 11/24/23 06:43 11/24/23 06:43
Intake & Output
11/22/23 11/23/23 11/24/23 11/25/23
07:59 07:59 07:59 07:59
Intake Total 400 / 400
Output Total 850 / 850 750 / 750
Balance -450 / -450 -750 / -750
Physical Exam
Physical Exam
GEN: No distress, awake, alert, oriented x3. sitting in chair
HEENT: supple, anicteric, mmm, eomi
LUNGS: Wheezes B/L
CV: Irreg, S1/S2, 2/6 murmur
ABD: soft, BS+, NT/ND
EXT: No cyanosis, clubbing. Trace edema of B/L LE
NEURO: Gross non-focal
SKIN: Warm, pink, dry. No rash
--- NOTE | 2023-11-24 11:09 | W.PN.UPDATE ---
Update Note
Progress Note Update
Procedure Type:�CABG + AVR
PERIOPERATIVE OUTCOME ESTIMATE %
Operative Mortality 8.74%
Morbidity & Mortality 29.1%
Stroke 2.4%
Renal Failure 5.8%
Reoperation 5.64%
Prolonged Ventilation 25.5%
Deep Sternal Wound Infection 0.406%
Long Hospital Stay (>14 days) 20.8%
Short Hospital Stay (<6 days)* 10%
*higher values reflect a better outcome
Procedure Type:�Isolated MVR
PERIOPERATIVE OUTCOME ESTIMATE %
Operative Mortality 10.2%
Morbidity & Mortality 22.1%
Stroke 2.13%
Renal Failure 4.71%
Reoperation 4.85%
Prolonged Ventilation 16.9%
Deep Sternal Wound Infection 0.124%
Long Hospital Stay (>14 days) 19.9%
Short Hospital Stay (<6 days)* 10.7%
*higher values reflect a better outcome
Clinical Summary
Planned Surgery: CABG + AVR, Urgent, First cardiovascular surgery
Demographics: 73 year old, female, 79.2kg, 152cm, BMI: 34.3 kg/m�
Lab Values: Creatinine: 0.7 mg/dL, Hematocrit: 36.2%, WBC Count: 6.6 10�/�L, Platelet Count: 147109 cells/�L
PreOp Medications: Oral diabetes control
Substance Abuse: Never smoker
Risk Factors / Comorbidities: Diabetes Mellitus , Hypertension
Cardiac Status: Acute and chronic heart failure, NYHA Class II, Ejection Fraction = 30%
Coronary Artery Disease: 2 vessels diseased, Unstable Angina
Valve Disease: Aortic Stenosis, Moderate MR
Arrhythmia: Recent A-fib, Persistent
There is no exact surgical STS option. Therefore, the MVR was calculated seperately
--- NOTE | 2023-11-24 11:09 | CM ---
Chart reviewed. Patient being worked up for a TAVR vs SAVR. Patient will need preoperative teaching once final decision is made. Patient is independent of ADLS, lives alone in a 1 STH, 4 MEY, ambulates with a SPC and a rolling walker and is
current with [facility]. Referral placed to resume care once medically stable for discharge. Plan is for the patient to return home with [facility]. CM to follow
--- NOTE | 2023-11-24 11:27 | W.PN.HOSP.TC ---
Today's Communication/Plan
-
see bold
Assessment / Plan
Assessment / Plan
Gen: NAD, AAOx3.
Eyes: EOMI, PERRLA, no scleral icterus.
Neck: supple.
CV: tachy, irreg/irreg, +S1/S2, no m/r/g.
Resp: wheezes and rhonchi B/L
Abd: +BS, soft, NT, ND
Skin: No rashes. No LE edema.
Neuro: CN 2-12 intact, non-focal.
Psych: Normal mood and affect.
RHC/LHC 11/22/23:
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
2: Severe aortic stenosis in the setting of low cardiac output.
3: Markedly elevated pulmonary pressures in the setting of low cardiac output with elevated left ventricular filling pressures.
Echo: �Normal left ventricular wall thickness. Normal left ventricular chamber size.
�Mildly reduced left ventricular systolic function. Left ventricular ejection
�fraction is 35-40% by Arreguin's method. 30% by volumetric assessment.� Global
�hypokinesis.
�Normal right ventricular size. Reduced right ventricular systolic function.
�Severely enlarged left atrium
�Moderately enlarged right atrium
�Mild mitral stenosis with peak and mean gradients of 10 and 4 mmHg.�
�Moderate eccentric mitral regurgitation
�Severe aortic stenosis. Peak/mean gradients across the aortic valve are 56/35
�mmHg.� Using an LVOT diameter of 1.9 cm, the HOMERO = .75cm2.� No aortic
�regurgitation is seen.
�Mild pulmonic regurgitation.
Acute on chronic HFrEF:
-echo above, notable for EF 30%, global hypokinesis, severe , mod MR, mild MS
-cont IV Lasix (increased dose of 60mg IV BID)
-daily wts, I/Os
-echo today
-cont BB/Aldactone
DM2:
-poorly controlled with a1c 9.2%
-cont Levemir/Farxiga
-cont SSI/accuchecks
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
Permanent Afib with RVR:
-cont BB (higher than home dose)/Eliquis
-currently on cardizem gtt, hopefully wean to off today
-cardiology considering Amio
Productive cough:
-CXR: Minor left basilar opacification which could represent subsegmental atelectasis and/or pneumonia.
-procal < 0.05
-no documented fever this admission
-No leukocytosis
-no evidence of bacterial PNA at this time
-cont incentive spirometer
Other problems:
Gout
Obesity due to excess calories: Encourage wt loss. Affects all aspects of care.
Severe
CAD: 2V disease as per cath 11/22/23. Cont BB/statin. CT surgery eval
HLD: cont statin
GERD: Cont PPI
Discussed with cardiology.
FULL/Eliquis
Total time spent on today's encounter was 50 minutes which included time spent in counseling the patient/family regarding diagnosis and treatment plan as listed above, goals of care, and symptom management. Case was discussed with nursing staff,
specialists, and care coordinators/case management. All labs and imaging personally reviewed by me. Remainder the time spent in detailed review of previous records, lab data, imaging, and other medical provider documentation.
Anticipated Discharge: > 48 hours
Subjective/Interval History
-
Date of Service: November 24, 2023
Still complains of cough. Denies chest pain or shortness of breath.
Objective Data
-
Labs:
Laboratory Results
11/24/23
03:54
WBC 6.6
Hgb 12.2
Hct 36.2 L
Plt Count 170
Sodium 138
Potassium 3.5
Chloride 101
Carbon Dioxide 23
BUN 36 H
Creatinine 0.7
Glucose 138 H
Calcium 9.2
Vital Signs:
Vital Signs
Temp Pulse Resp BP Pulse Ox
97.9 F 74 16 123/73 98
11/24/23 11:05 11/24/23 11:05 11/24/23 11:05 11/24/23 06:43 11/24/23 11:05
I&O
11/23/23 11/24/23 11/25/23
06:59 06:59 06:59
Intake Total 400 / 400
Output Total 850 / 850 750 / 750 600 / 600
Balance -450 / -450 -750 / -750 -600 / -600
[2023-11-24] MEDS: PACERONE 200 MG PO ×3 (11:56→22:07)
[2023-11-24] MEDS: SAFETUSSIN DM (SUGAR/ALCOHOL FREE) 200 MG PO ×2 (12:02→22:28)
[2023-11-24 13:42] LABS: Glucose - Point of Care 242 mg/dl (70-99)
[2023-11-24] MEDS: NOVOLOG FLEXPEN-MODERATE RESISTANCE 3 UNITS SC (14:04)
[2023-11-24] MEDS: LASIX 60 MG IV (16:25)
[2023-11-24] MEDS: FLUSH (NSS) 1 FLUSH IV (16:32)
[2023-11-24 17:54] LABS: Glucose - Point of Care 169 mg/dl (70-99)
[2023-11-24] MEDS: NOVOLOG FLEXPEN-MODERATE RESISTANCE 1 UNITS SC (18:03)
[2023-11-24] MEDS: CLARITIN 10 MG PO (18:04)
[2023-11-24] MEDS: LIPITOR 40 MG PO (18:04)
[2023-11-24] MEDS: ALDACTONE 25 MG PO (18:05)
[2023-11-24 21:27] LABS: Glucose - Point of Care 236 mg/dl (70-99)
[2023-11-24] MEDS: LEVEMIR 0.100000000000000006 UNITS SC (22:07)
--- NOTE | 2023-11-25 00:59 | PTCARENOTE ---
Patient ambulating in room w/ RW, and requires supervision assist. Gait steady. Tele remains Afib w/ BBBC and occasional PVCs, HR in the 80-100s. No complaints of chest pain. Patient w/ an occasional cough, and brining up donald thick sputum. Denies
any SOB. Patient aware of POC, call nolen in reach.
[2023-11-25 04:20] VITALS: BP 112/77
[2023-11-25 05:00] LABS: Magnesium 1.9 mg/dl (1.6-2.3)
[2023-11-25 07:50] VITALS: BP 111/62
--- NOTE | 2023-11-25 07:50 | W.PN.HOSP.TC ---
Today's Communication/Plan
-
see bold
Assessment / Plan
Assessment / Plan
Gen: NAD, AAOx3.
Eyes: EOMI, PERRLA, no scleral icterus.
Neck: supple.
CV: irreg/irreg, +S1/S2, no m/r/g.
Resp: mod wheezes and mild rhonchi B/L
Abd: +BS, soft, NT, ND
Skin: No rashes. No LE edema.
Neuro: remains CN 2-12 intact, non-focal.
Psych: Normal mood and affect.
RHC/LHC 11/22/23:
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
2: Severe aortic stenosis in the setting of low cardiac output.
3: Markedly elevated pulmonary pressures in the setting of low cardiac output with elevated left ventricular filling pressures.
Echo: �Normal left ventricular wall thickness. Normal left ventricular chamber size.
�Mildly reduced left ventricular systolic function. Left ventricular ejection
�fraction is 35-40% by Arreguin's method. 30% by volumetric assessment.� Global
�hypokinesis.
�Normal right ventricular size. Reduced right ventricular systolic function.
�Severely enlarged left atrium
�Moderately enlarged right atrium
�Mild mitral stenosis with peak and mean gradients of 10 and 4 mmHg.�
�Moderate eccentric mitral regurgitation
�Severe aortic stenosis. Peak/mean gradients across the aortic valve are 56/35
�mmHg.� Using an LVOT diameter of 1.9 cm, the HOMERO = .75cm2.� No aortic
�regurgitation is seen.
�Mild pulmonic regurgitation.
Acute on chronic HFrEF:
-echo above, notable for EF 30%, global hypokinesis, severe , mod MR, mild MS
-cont IV Lasix (increased dose of 60mg IV BID)
-daily wts, I/Os
-echo above
-cont BB/Aldactone
DM2:
-poorly controlled with a1c 9.2%
-cont Levemir/Farxiga
-cont SSI/accuchecks
-diabetes BONE CHAR PULLER following
Permanent Afib with RVR:
-cont BB (higher than home dose)/Eliquis/Amio
-was on cardizem gtt, now off
-cardiology following
-MATTHIAS 11/27/23
Productive cough:
-CXR: Minor left basilar opacification which could represent subsegmental atelectasis and/or pneumonia.
-procal < 0.05
-no documented fever this admission
-No leukocytosis
-no evidence of bacterial PNA at this time
-cont incentive spirometer
Other problems:
Gout
Obesity due to excess calories: Encourage wt loss. Affects all aspects of care.
CAD, severe , mod MR: 2V disease as per cath 11/22/23. Cont BB/statin. CT surgery following
HLD: cont statin
GERD: Cont PPI
FULL/Eliquis
Anticipated Discharge: > 48 hours
Subjective/Interval History
-
Date of Service: November 25, 2023
Denies CP/SOB.
Objective Data
-
Labs:
Laboratory Results
11/25/23
07:19
Sodium Pending
Potassium Pending
Chloride Pending
Carbon Dioxide Pending
BUN Pending
Creatinine Pending
Glucose Pending
Calcium Pending
Vital Signs:
Vital Signs
Temp Pulse Resp BP Pulse Ox
97.8 F 83 20 112/77 96
11/25/23 04:22 11/25/23 07:00 11/25/23 04:22 11/25/23 04:20 11/25/23 04:22
I&O
11/24/23 11/25/23 11/26/23
06:59 06:59 07:59
Intake Total 720 / 720
Output Total 750 / 750 1500 / 1500
Balance -750 / -750 -780 / -780
[2023-11-25 08:05] LABS: Glucose - Point of Care 100 mg/dl (70-99)
[2023-11-25 08:34] VITALS: BMI 33.7
[2023-11-25] MEDS: NOVOLOG FLEXPEN-MODERATE RESISTANCE SC ×2 (08:43→13:53)
[2023-11-25] MEDS: TOPROL XL 100 MG PO ×2 (08:44→20:05)
[2023-11-25] MEDS: PROTONIX 40 MG PO (08:44)
[2023-11-25] MEDS: LASIX 60 MG IV ×2 (08:44→16:02)
[2023-11-25] MEDS: MAGNESIUM OXIDE 500 MG PO (08:44)
[2023-11-25] MEDS: KCL 20 MEQ PO (08:44)
[2023-11-25] MEDS: FARXIGA 10 MG PO (08:44)
[2023-11-25] MEDS: ELIQUIS 5 MG PO ×2 (08:44→20:05)
[2023-11-25] MEDS: PACERONE 200 MG PO ×3 (08:44→21:59)
[2023-11-25] MEDS: DESENEX/MITRAZOL/ZEASORB 1 APPLIC TOPICAL ×2 (08:45→20:06)
[2023-11-25] MEDS: FLUSH (NSS) 2 FLUSH IV ×2 (08:45→16:03)
[2023-11-25] MEDS: SAFETUSSIN DM (SUGAR/ALCOHOL FREE) 200 MG PO ×3 (08:47→21:59)
--- NOTE | 2023-11-25 09:03 | W.PN.CARDCBS ---
Addendum entered and electronically signed by Alex Girard MD 11/25/23 12:00:
I saw and examined the patient.
The VACATION GUIDE or PA's note was reviewed and I agree with the note.
Comment: General: Well developed, well nourished in NAD.
Neck: Supple, no JVD, HJR, carotids +2 B/L, no bruits bilaterally.
Heart: Non displaced PMI, irregular, 2/6 basal systolic murmur, no S3, S4, no rubs.
Lungs: Scattered rhonchi
Abdomen: Normal bowel sounds, soft, non-tender, non-distended.
Extremities: No clubbing, cyanosis or edema bilaterally.
Neuro: Grossly nonfocal, awake, alert and oriented x3.
Will continue IV Lasix. Plan is for MATTHIAS on Sunday 11/26 to further assess mitral regurg. Consider TAVR/stenting if MR is felt to be functional.
Original Note:
Today's Communication / Plan
-
Continue IV Lasix
Follow wheezing
Continue Toprol, amiodarone, Eliquis
CT work up ongoing - imaging with severe L subclavian stenosis. consider increasing lipitor dose
Plan for MATTHIAS Monday to assess mitral valve
Impression / Plan
-
Primary Care Physician: Dr. Jessica De La Cruz
Primary Regulatory Product Manager: Dr. Dion Gastelum of [facility]
73-year-old woman with a past medical history of hypertension, insulin-dependent diabetes, gout, prior cellulitis, obesity, and severe aortic stenosis.� Echocardiography performed in November 2022 showed preserved LV function with a mean gradient of 47
mmHg and eccentric mild to moderate mitral regurgitation.� She presented to the [facility] emergency room in August with congestive heart failure with new A-fib and rapid ventricular response.� She was rate controlled and diuresed and
discharged.� Attempts to restore normal sinus rhythm were unsuccessful and she was readmitted with recurrent heart failure on October 23.� She was again diuresed over a 2-week hospitalization followed by 1 week in rehab.� Cardioversion on amiodarone
was reattempted but she went back into atrial fibrillation.� Since being home she has felt better but is still not back to her baseline.
Impression:
Acute on chronic HFpEF
Symptomatic Permanent Afib with RVR
2V CAD by cath 11/22/23
Severe Aortic stenosis MG 23mmHg, HOMERO 0.5cm2
Moderate - severe MR
HTN
HLD
DM
GERD
Gout
ECHO 11/23/2023: EF 35 to 40%, global hypokinesis, severely enlarged LA, moderately enlarged RA, mild MS with peak/mean gradients of 10/4 mmHg, moderate eccentric MR, severe with peak/mean gradients 56/35 mmHg, HOMERO 0.75 cm�, no AR, mild AL. New
reduction in EF compared to prior echo
Plan:
-Patient went left and right heart cath 11/23/2023 as part of TAVR eval with LAD and left circumflex stenosis
-Also noted to have wedge of 34 and admitted post cath for diuresis. diuretics increased to IV Lasix 60 mg twice daily on 11/23 with better response. she was taking bumex 2mg daily prior to admission
-remains with wheezing/rhonchi on exam. no history of lung disease. ? cardiac wheezing. Chest CT also with read of bibasilar PNA. appreciate hospitalist input, no evidence of bacterial PNA, procal negative. covid/flu negative. afebrile, without
leukocytosis
-BMP pending 11/24
-given echo with new reduction in EF - 35-40%, continue toprol, aldactone, farxiga. not able to add jonnathan/arb/arni due to hypotension
-HRs now controlled in afib on toprol 100mg BID. po amiodarone 200mg TID added 11/23
-continue eliquis
-appreciate CT surgical input. plan for MATTHIAS Monday to assess MR to determine if surgical vs percutaneous treatment better option for patient (SAVR+AVR+MVR vs TAVR+PCI)
-of note, imaging with evidence of severe high grade L subclavian stenosis and R carotid stenosis 50-69%
-LDL 36. consider increasing lipitor dose from 40mg QPM to 80mg QPM
-continue asa
-appreciate hospitalist mgmt of diabetes. hgbA1c 9.2%.
-d/w nursing
Progress Note - Regulatory Product Manager
Subjective
Date of Service: November 25, 2023
Patient remains with wheezing, however without complaints of shortness of breath. Denies chest pain or palpitations
Objective
Labs:
11/24/23 03:54
Labs
Hgb 12.2 g/dL (12.0-16.0) 11/24/23 03:54
Hct 36.2 % (37.0-47.0) L 11/24/23 03:54
Plt Count 170 10^3/uL (130-400) 11/24/23 03:54
Sodium 138 mmol/L (135-145) 11/24/23 03:54
Potassium 3.5 mmol/L (3.5-5.1) 11/24/23 03:54
BUN 36 mg/dl (7-17) H 11/24/23 03:54
Creatinine 0.7 mg/dL (0.6-1.0) 11/24/23 03:54
Glucose 138 mg/dl (70-99) H 11/24/23 03:54
Vital Signs and I&O:
Vital Signs
Temp Pulse Resp BP Pulse Ox
97.3 F 90 16 111/62 96
11/25/23 07:53 11/25/23 08:00 11/25/23 07:53 11/25/23 07:50 11/25/23 07:53
Vital Signs
Temp Pulse Resp BP Pulse Ox
97.3 F 90 16 111/62 96
11/25/23 07:53 11/25/23 08:00 11/25/23 07:53 11/25/23 07:50 11/25/23 07:53
Intake & Output
11/23/23 11/24/23 11/25/23 11/26/23
07:59 07:59 07:59 08:59
Intake Total 400 / 400 720 / 720 300 / 300
Output Total 850 / 850 750 / 750 1500 / 1500 300 / 300
Balance -450 / -450 -750 / -750 -780 / -780 0 / 0
Physical Exam
Physical Exam
GEN: No distress, awake, alert, oriented x3
HEENT: supple, anicteric, mmm, eomi
LUNGS: Wheezes B/L
CV: Irreg, S1/S2, 2/6 murmur
ABD: soft, BS+, NT/ND
EXT: No cyanosis, clubbing. Trace edema of B/L LE
NEURO: Gross non-focal
SKIN: Warm, pink, dry. No rash
[2023-11-25 09:06] LABS: Blood Urea Nitrogen 35 mg/dl (7-17); Calcium 9.3 mg/dl (8.4-10.2); Carbon Dioxide 30 mmol/L (22-30); Chloride 101 mmol/L (98-107); Estimated Creatinine Clearance 60 ml/min; Glucose 101 mg/dl (70-99); Potassium 3.4 mmol/L (3.5-5.1); Sodium 137 mmol/L (135-145); eGFR > 60.00
[2023-11-25] MEDS: KCL 40 MEQ PO (10:29)
[2023-11-25 11:23] VITALS: BP 105/64
[2023-11-25 13:49] LABS: Glucose - Point of Care 149 mg/dl (70-99)
[2023-11-25] MEDS: NOVOLOG FLEXPEN 2 UNITS SC ×2 (13:54→17:52)
[2023-11-25 15:57] VITALS: BP 112/76
--- NOTE | 2023-11-25 17:24 | PTCARENOTE ---
The patient has been oob to the chair and ambulating to the bathroom all shift, supervision with a RW. Her vital signs remain stable. Afib noted on the monitor. She has a moist productive cough that produces donald sputum. Scattered course rhonchi
noted throughout her lungs. Robitussin has been given per order.
[2023-11-25 17:26] LABS: Glucose - Point of Care 160 mg/dl (70-99)
--- NOTE | 2023-11-25 17:27 | W.PN.UPDATE ---
Update Note
Progress Note Update
Noted carotid US with 50-69% YOSVANY stenosis and <50% LICA stenosis.
Ct chest withlarge plaque at origen of left subclavian artery with severe stenosis. Awaiting results of MATTHIAS (scheduled for 11/26) for final recommendations.
[2023-11-25] MEDS: ALDACTONE 25 MG PO (17:52)
[2023-11-25] MEDS: NOVOLOG FLEXPEN-MODERATE RESISTANCE 1 UNITS SC (17:52)
[2023-11-25] MEDS: LIPITOR 40 MG PO (17:52)
[2023-11-25] MEDS: CLARITIN 10 MG PO (17:52)
[2023-11-25 19:26] VITALS: BP 109/78
[2023-11-25 21:28] LABS: Glucose - Point of Care 255 mg/dl (70-99)
[2023-11-25] MEDS: LEVEMIR 0.100000000000000006 UNITS SC (21:53)
[2023-11-25 21:58] VITALS: BP 129/93
[2023-11-26] VITALS (8 sets, daily range): BP systolic 114–141; BP diastolic 72–99; PULSE 91; BMI 33.4
--- NOTE | 2023-11-26 00:37 | PTCARENOTE ---
No complaints CP/discomfort, VSS, A-fib on the monitor. Moist productive cough present, lungs coarse with inspiratory wheeze at bases, RA pulse ox 98%. Medicated with Robitussin per pt.'s request. Pt. sits OOB in the chair when awake, ambulates
with assist x 1 & RW with steady gait. Pt. currently sleeping.
[2023-11-26 05:22] LABS: Blood Urea Nitrogen 44 mg/dl (7-17); Calcium 9.3 mg/dl (8.4-10.2); Carbon Dioxide 29 mmol/L (22-30); Chloride 102 mmol/L (98-107); Estimated Creatinine Clearance 53 ml/min; Glucose 137 mg/dl (70-99); Potassium 4.1 mmol/L (3.5-5.1); Sodium 138 mmol/L (135-145); eGFR > 60.00
[2023-11-26 07:34] LABS: Glucose - Point of Care 122 mg/dl (70-99)
[2023-11-26] MEDS: PACERONE 200 MG PO ×3 (08:42→22:13)
[2023-11-26] MEDS: KCL 20 MEQ PO (08:42)
[2023-11-26] MEDS: PROTONIX 40 MG PO (08:42)
[2023-11-26] MEDS: TOPROL XL 100 MG PO ×2 (08:42→19:32)
[2023-11-26] MEDS: ELIQUIS 5 MG PO ×2 (08:42→19:32)
[2023-11-26] MEDS: MAGNESIUM OXIDE 500 MG PO (08:42)
[2023-11-26] MEDS: FARXIGA 10 MG PO (08:42)
[2023-11-26] MEDS: LASIX 60 MG IV ×2 (08:42→16:17)
[2023-11-26] MEDS: FLUSH (NSS) 2 FLUSH IV ×2 (08:43→16:17)
[2023-11-26] MEDS: TYLENOL 650 MG PO ×2 (08:46→22:17)
[2023-11-26] MEDS: NOVOLOG FLEXPEN-MODERATE RESISTANCE SC (09:46)
[2023-11-26] MEDS: NOVOLOG FLEXPEN 2 UNITS SC ×3 (09:47→18:33)
[2023-11-26] MEDS: DESENEX/MITRAZOL/ZEASORB 1 APPLIC TOPICAL ×2 (09:47→19:33)
[2023-11-26] MEDS: SAFETUSSIN DM (SUGAR/ALCOHOL FREE) 200 MG PO ×2 (10:29→22:17)
--- NOTE | 2023-11-26 10:56 | W.PN.HOSP.TC ---
Today's Communication/Plan
-
see bold
Assessment / Plan
Assessment / Plan
Gen: NAD, AAOx3.
Eyes: EOMI, PERRLA, no scleral icterus.
Neck: supple.
CV: remains irreg/irreg, +S1/S2, no m/r/g.
Resp: mild wheezes
Abd: +BS, soft, NT, ND
Skin: No rashes.
Neuro: continues to remain CN 2-12 intact, non-focal.
Psych: Normal mood and affect.
RHC/LHC 11/22/23:
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
2: Severe aortic stenosis in the setting of low cardiac output.
3: Markedly elevated pulmonary pressures in the setting of low cardiac output with elevated left ventricular filling pressures.
Echo: �Normal left ventricular wall thickness. Normal left ventricular chamber size.
�Mildly reduced left ventricular systolic function. Left ventricular ejection
�fraction is 35-40% by Arreguin's method. 30% by volumetric assessment.� Global
�hypokinesis.
�Normal right ventricular size. Reduced right ventricular systolic function.
�Severely enlarged left atrium
�Moderately enlarged right atrium
�Mild mitral stenosis with peak and mean gradients of 10 and 4 mmHg.�
�Moderate eccentric mitral regurgitation
�Severe aortic stenosis. Peak/mean gradients across the aortic valve are 56/35
�mmHg.� Using an LVOT diameter of 1.9 cm, the HOMERO = .75cm2.� No aortic
�regurgitation is seen.
�Mild pulmonic regurgitation.
Acute on chronic HFrEF:
-echo above, notable for EF 30%, global hypokinesis, severe , mod MR, mild MS
-cont IV Lasix 60mg IV BID
-daily wts, I/Os
-echo above
-cont BB/Aldactone
DM2:
-poorly controlled with a1c 9.2%
-cont Levemir/premeal Novolog/Farxiga
-cont SSI/accuchecks
-diabetes CARE NAVIGATOR following
Permanent Afib with RVR:
-cont BB (higher than home dose)/Eliquis/Amio
-was on cardizem gtt, now off
-cardiology following
-MATTHIAS 11/27/23
Productive cough:
-CXR: Minor left basilar opacification which could represent subsegmental atelectasis and/or pneumonia.
-procal < 0.05
-no documented fever this admission
-No leukocytosis
-no evidence of bacterial PNA at this time
-cont incentive spirometer
Other problems:
Gout
Obesity due to excess calories: Encourage wt loss. Affects all aspects of care.
CAD, severe , mod MR: 2V disease as per cath 11/22/23. Cont BB/statin. CT surgery following.
HLD: cont statin
GERD: Cont PPI
FULL/Eliquis
Anticipated Discharge: > 48 hours
Subjective/Interval History
-
Date of Service: November 26, 2023
No new complaints.
Objective Data
-
Labs:
Laboratory Results
11/26/23
04:31
Sodium 138
Potassium 4.1
Chloride 102
Carbon Dioxide 29
BUN 44 H
Creatinine 0.9
Glucose 137 H
Calcium 9.3
Vital Signs:
Vital Signs
Temp Pulse Resp BP Pulse Ox
97.1 F 86 20 114/92 96
11/26/23 07:43 11/26/23 07:31 11/26/23 07:43 11/26/23 07:31 11/26/23 07:43
I&O
11/25/23 11/26/23 11/27/23
05:59 06:59 06:59
Intake Total
Output Total 650 / 650
Balance -650 / -650
[2023-11-26 12:46] LABS: Glucose - Point of Care 177 mg/dl (70-99)
--- NOTE | 2023-11-26 13:05 | W.PN.CARDCBS ---
Today's Communication / Plan
-
Continue IV Lasix
Add lisinopril
For MATTHIAS on 11/26 to assess MR and consider whether TAVR could be done and MR would improve
Impression / Plan
-
Primary Care Physician: Dr. Jessica De La Cruz
Primary Medical Oncologist: Dr. Dion Gastelum of [facility]
73-year-old woman with a past medical history of hypertension, insulin-dependent diabetes, gout, prior cellulitis, obesity, and severe aortic stenosis.� Echocardiography performed in November 2022 showed preserved LV function with a mean gradient of 47
mmHg and eccentric mild to moderate mitral regurgitation.� She presented to the [facility] emergency room in August with congestive heart failure with new A-fib and rapid ventricular response.� She was rate controlled and diuresed and
discharged.� Attempts to restore normal sinus rhythm were unsuccessful and she was readmitted with recurrent heart failure on October 23.� She was again diuresed over a 2-week hospitalization followed by 1 week in rehab.� Cardioversion on amiodarone
was reattempted but she went back into atrial fibrillation.� Since being home she has felt better but is still not back to her baseline.
Impression:
Acute on chronic HFpEF
Symptomatic Permanent Afib with RVR
2V CAD by cath 11/22/23
Severe Aortic stenosis MG 23mmHg, HOMERO 0.5cm2
Moderate - severe MR
severe high grade L subclavian stenosis and R carotid stenosis 50-69%
HTN
HLD
DM
GERD
Gout
ECHO 11/23/2023: EF 35 to 40%, global hypokinesis, severely enlarged LA, moderately enlarged RA, mild MS with peak/mean gradients of 10/4 mmHg, moderate eccentric MR, severe with peak/mean gradients 56/35 mmHg, HOMERO 0.75 cm�, no AR, mild KS. New
reduction in EF compared to prior echo
Catheterization 11/22/2023
ASSESSMENT:
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
2: Severe aortic stenosis in the setting of low cardiac output.
3: Markedly elevated pulmonary pressures in the setting of low cardiac output with elevated left ventricular filling pressures.
Plan:
She has improved significant with IV diuresis
Consider change to oral Lasix in the next 24 hours
Plan is for MATTHIAS on 11/26 to further assess MR
If MR is felt to be functional and would improve with TAVR, will plan for stenting followed by TAVR workup as outpt.
continue toprol, aldactone, farxiga.
Will add PHILIP inhibitor now that blood pressure is improved
HRs now controlled in afib on toprol 100mg BID. po amiodarone 200mg TID added 11/23 and Cardizem was discontinued
continue eliquis
of note, imaging with evidence of severe high grade L subclavian stenosis and R carotid stenosis 50-69%
LDL 36. cont Lipitor
Progress Note - Medical Oncologist
Subjective
Date of Service: November 26, 2023
No chest pain or shortness of breath
Objective
Labs:
11/24/23 03:54
11/26/23 04:31
Labs
Hgb 12.2 g/dL (12.0-16.0) 11/24/23 03:54
Hct 36.2 % (37.0-47.0) L 11/24/23 03:54
Plt Count 170 10^3/uL (130-400) 11/24/23 03:54
Sodium 138 mmol/L (135-145) 11/26/23 04:31
Potassium 4.1 mmol/L (3.5-5.1) 11/26/23 04:31
BUN 44 mg/dl (7-17) H 11/26/23 04:31
Creatinine 0.9 mg/dL (0.6-1.0) 11/26/23 04:31
Glucose 137 mg/dl (70-99) H 11/26/23 04:31
Vital Signs and I&O:
Vital Signs
Temp Pulse Resp BP Pulse Ox
97.8 F 77 16 121/99 96
11/26/23 11:21 11/26/23 12:00 11/26/23 11:21 11/26/23 11:20 11/26/23 11:21
Vital Signs
Temp Pulse Resp BP Pulse Ox
97.8 F 77 16 121/99 96
11/26/23 11:21 11/26/23 12:00 11/26/23 11:21 11/26/23 11:20 11/26/23 11:21
Intake & Output
11/24/23 11/25/23 11/26/23 11/27/23
05:59 05:59 06:59 06:59
Intake Total
Output Total 650 / 650
Balance -650 / -650
Physical Exam
Physical Exam
General: Well developed, well nourished in NAD.
Neck: Supple, no JVD, HJR, carotids +2 B/L, no bruits bilaterally.
Heart: Non displaced PMI, irregular, 2/6 basal systolic murmur, no S3, S4, no rubs.
Lungs: Clear to auscultation bilaterally, no wheeze, rhonchi, rubs bilaterally,
normal expiratory phase.
Extremities: No clubbing, cyanosis or edema bilaterally.
Neuro: Grossly nonfocal, awake, alert and oriented x3.
[2023-11-26] MEDS: NOVOLOG FLEXPEN-MODERATE RESISTANCE 1 UNITS SC ×2 (13:33→18:33)
[2023-11-26] MEDS: ZESTRIL 2.5 MG PO (14:38)
[2023-11-26 18:07] LABS: Glucose - Point of Care 177 mg/dl (70-99)
[2023-11-26] MEDS: LIPITOR 40 MG PO (18:32)
[2023-11-26] MEDS: CLARITIN 10 MG PO (18:32)
[2023-11-26] MEDS: ALDACTONE 25 MG PO (18:32)
--- NOTE | 2023-11-26 18:40 | PTCARENOTE ---
No changes since previous assessment. VSS, Afib noted on the monitor. The patient remains stable. She has been frequently ambulating, with a RW, in the room and oob to the chair the majority of the shift.
[2023-11-26 21:36] LABS: Glucose - Point of Care 283 mg/dl (70-99)
[2023-11-26] MEDS: LEVEMIR 0.100000000000000006 UNITS SC (22:13)
[2023-11-27] VITALS (8 sets, daily range): BP systolic 98–116; BP diastolic 62–97; BMI 33.6; BMI 33.4
[2023-11-27 04:51] LABS: Blood Urea Nitrogen 56 mg/dl (7-17); Calcium 9.1 mg/dl (8.4-10.2); Carbon Dioxide 28 mmol/L (22-30); Chloride 100 mmol/L (98-107); Estimated Creatinine Clearance 43 ml/min; Glucose 157 mg/dl (70-99); Potassium 4.2 mmol/L (3.5-5.1); Sodium 136 mmol/L (135-145); eGFR 53.72
--- NOTE | 2023-11-27 05:00 | PTCARENOTE ---
No complaints CP or any discomfort overnight, VSS, A-fib with BBC on the monitor. Pt. NPO for MATTHIAS today; understanding of plan of care verbalized.
[2023-11-27] MEDS: ELIQUIS 5 MG PO (07:46)
[2023-11-27] MEDS: PACERONE 200 MG PO ×3 (07:46→23:08)
[2023-11-27] MEDS: TOPROL XL 100 MG PO ×2 (07:47→19:33)
[2023-11-27] MEDS: DUONEB 3 ML INH ×2 (09:18→21:48)
--- NOTE | 2023-11-27 09:20 | W.PN.HOSP.TC ---
Today's Communication/Plan
-
IV Lasix. MATTHIAS. ID eval
Assessment / Plan
Assessment / Plan
Gen: NAD, AAOx3.
Eyes: EOMI, PERRLA, no scleral icterus.
Neck: supple.
CV: remains irreg/irreg, +S1/S2, no m/r/g.
Resp: mild wheezes
Abd: +BS, soft, NT, ND
Skin: No rashes.
Neuro: continues to remain CN 2-12 intact, non-focal.
Psych: Normal mood and affect.
A/P:
RHC/LHC 11/22/23:
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
2: Severe aortic stenosis in the setting of low cardiac output.
3: Markedly elevated pulmonary pressures in the setting of low cardiac output with elevated left ventricular filling pressures.
Echo: �Normal left ventricular wall thickness. Normal left ventricular chamber size.
�Mildly reduced left ventricular systolic function. Left ventricular ejection
�fraction is 35-40% by Arreguin's method. 30% by volumetric assessment.� Global
�hypokinesis.
�Normal right ventricular size. Reduced right ventricular systolic function.
�Severely enlarged left atrium
�Moderately enlarged right atrium
�Mild mitral stenosis with peak and mean gradients of 10 and 4 mmHg.�
�Moderate eccentric mitral regurgitation
�Severe aortic stenosis. Peak/mean gradients across the aortic valve are 56/35
�mmHg.� Using an LVOT diameter of 1.9 cm, the HOMERO = .75cm2.� No aortic
�regurgitation is seen.
�Mild pulmonic regurgitation.
Acute on chronic HFrEF:
-Patient transferred to the hospital service few days ago.
-echo above, notable for EF 30%, global hypokinesis, severe , mod MR, mild MS
-cont IV Lasix 60mg IV BID
-daily wts, I/Os
-echo above
-cont BB/Aldactone
Vegetations on mitral valve-concerns for infective endocarditis versus other etiology:
-MATTHIAS shows vegetation on the mitral valve today
-Blood cultures taken
-Discussed with cardiology today on 11/26
-Will request ID consultation
-Hold off on antibiotic, patient looks nontoxic and remains afebrile.
DM2:
-poorly controlled with a1c 9.2%
-cont Levemir/premeal Novolog/Farxiga
-cont SSI/accuchecks
-diabetes FIRE EXTINGUISHER REPAIRER INSPECTOR following
Permanent Afib with RVR:
-cont BB (higher than home dose)/Eliquis/Amio
-was on cardizem gtt, now off
-cardiology following
-MATTHIAS 11/27/23
Productive cough:
-CXR: Minor left basilar opacification which could represent subsegmental atelectasis and/or pneumonia.
-procal < 0.05
-no documented fever this admission
-No leukocytosis
-no evidence of bacterial PNA at this time
-cont incentive spirometer
Other problems:
Gout
Obesity due to excess calories: Encourage wt loss. Affects all aspects of care.
CAD, severe , mod MR: 2V disease as per cath 11/22/23. Cont BB/statin. CT surgery following.
HLD: cont statin
GERD: Cont PPI
FULL/Eliquis
Anticipated Discharge: > 48 hours
Subjective/Interval History
-
Date of Service: November 27, 2023
Patient has any worsening shortness of breath. Remains afebrile.
Objective Data
-
Labs:
Laboratory Results
11/27/23
03:35
Sodium 136
Potassium 4.2
Chloride 100
Carbon Dioxide 28
BUN 56 H
Creatinine 1.1 H
Glucose 157 H
Calcium 9.1
Vital Signs:
Vital Signs
Temp Pulse Resp BP Pulse Ox
96.8 F L 66 16 116/97 99
11/27/23 07:09 11/27/23 09:16 11/27/23 09:16 11/27/23 03:29 11/27/23 09:16
I&O
11/26/23 11/27/23 11/28/23
06:59 06:59 06:59
Intake Total 240 / 240
Output Total 1525 / 1525
Balance -1285 / -1285
Review of Systems
-
All other systems: Reviewed and negative
--- NOTE | 2023-11-27 10:32 | PN.DE.MGMTRT ---
Insulin Management
- -
11/27/2023: Diabetes Management F/U:
Pt admitted 11/21 with Acute on chronic HFpEF, s/p cardiac cath--> 2V CAD. Pt NPO this AM for MATTHIAS today.
PMH includes T2DM, was taking Levemir 10 units @ hs and glipizide 10 mg BID, FARM[employer]. A1C is 9.2%, cr .6, eGFR > 60.
Patient is A/O x3, sitting up in chair, pleasant, offers no complaints, able to participate in discussion about diabetes control and management.
Premeal glucose ranged from 120 to 170 throughout the weakened and noted for elevations at HS >200
Will increase AC NovoLog to 4 units and Levemir to 12 units. Change to low corrective insulin with meals. Continue Farxiga 10 mg daily.
Use corrective insulin while NPO and resume AC insulin when diet is restarted.
Pt reports she has a working meter at home with enough supplies.
Diabetes History
- -
Type of Diabetes: 2 requiring insulin
Pre-Admission Diabetes Regimen
11/27/23
03:35
Creatinine 1.1 H
Lab Results
Hemoglobin A1c 9.2 % (4.0-5.6) H 11/23/23 02:16
Insulin Pump Settings
IP Diabetes Regimen
11/26/23 11/26/23 11/26/23
12:44 18:06 21:34
Glucose
POC Glucose 177 H 177 H 283 H
11/27/23
03:35
Glucose 157 H
POC Glucose
Meal type: Dinner
Meal type: Lunch
Amount consumed: 100%
Amount consumed: 85%
Patient Education
--- NOTE | 2023-11-27 10:44 | W.PN.UPDATE ---
Update Note
Progress Note Update
She arrived bronchospastic to the quality control lab technician which impoved with angelita. MASON completed without complication.
Mason showed small vegetation on the anterior mitral leaflet, moderate to severe MR, Severe (on appearance) EF 40%.
Findings discussed with Dr Qiu.
[2023-11-27] MEDS: KCL 20 MEQ PO (11:25)
[2023-11-27] MEDS: MAGNESIUM OXIDE 500 MG PO (11:25)
[2023-11-27] MEDS: PROTONIX 40 MG PO (11:25)
[2023-11-27] MEDS: FARXIGA 10 MG PO (11:29)
[2023-11-27] MEDS: ZESTRIL 2.5 MG PO (11:35)
[2023-11-27] MEDS: LASIX 60 MG IV (11:35)
[2023-11-27] MEDS: DESENEX/MITRAZOL/ZEASORB 1 APPLIC TOPICAL ×2 (11:42→19:35)
--- NOTE | 2023-11-27 11:43 | PTCARENOTE ---
Rec'd Pt post MATTHIAS, A,A+Ox3, no complaints, VSS.
[2023-11-27] MEDS: NOVOLOG FLEXPEN SC (11:48)
[2023-11-27] MEDS: NOVOLOG FLEXPEN-MODERATE RESISTANCE SC (11:49)
--- NOTE | 2023-11-27 11:55 | W.PN.CARDCBS ---
Addendum entered and electronically signed by Alex Girard MD 11/27/23 13:45:
I saw and examined the patient.
The SOFTWARE MAINTENANCE ENGINEER or PA's note was reviewed and I agree with the note.
Comment: General: Well developed, well nourished in NAD.
Neck: Supple, no JVD, HJR, carotids +2 B/L, no bruits bilaterally.
Heart: Non displaced PMI, irregular, 2/6 systolic murmur through precordium, No S3, S4, no rubs.
Lungs: Scattered rhonchi
Extremities: No clubbing, cyanosis or edema bilaterally.
Neuro: Grossly nonfocal, awake, alert and oriented x3.
Reviewed MATTHIAS which reveals possible vegetation versus torn mitral cord. This may be an old vegetation. There is severe MR which would not improve with TAVR. 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 Likely needs AVR/MVR/CABG. Timing
to be determined. Will check blood cultures. Infectious disease has been consulted as well.
Original Note:
Today's Communication / Plan
-
Check blood cultures x2
ID consulted
Check ECG
Impression / Plan
-
Primary Care Physician: Dr. Jessica De La Cruz
Primary Bag Turner: Dr. Dion Gastelum of [facility]
Impression:
Acute on chronic HFrEF
CM EF 35-40% by echo 11/23/23
Symptomatic Permanent Afib with RVR
2V CAD by cath 11/22/23
Severe Aortic stenosis MG 23mmHg, HOMERO 0.5cm2
Moderate - severe MR
severe high grade L subclavian stenosis and R carotid stenosis 50-69%
HTN
HLD
DM
GERD
Gout
Possible mitral valve vegetation by echo 11/27/23
ECHO 11/23/23: EF 35 to 40%, global hypokinesis, severely enlarged LA, moderately enlarged RA, mild MS with peak/mean gradients of 10/4 mmHg, moderate eccentric MR, severe with peak/mean gradients 56/35 mmHg, HOMERO 0.75 cm�, no AR, mild SD. New
reduction in EF compared to prior echo
MATTHIAS 11/27/23: EF 40%, mild global hypokinesis with slight owrsening in septum, normal RV size with reduced systolic function, severe MR with thin, filamentous, hypermobile density concerning for a vegetation on the anterior mitral valve leaflet.
Plan:
-Patient came to for a cath on 11/22/23 and was found to have LAD and Circ disease. Patient was then admitted for diuresis and ongoing work-up of severe and MR.
-Weight is down about 2 lbs this admission with Lasix 60 mg IV BID diuresis. Patient was taking Bumex 2 mg PO daily prior to admission. Dry weight unknown. Cre up to 1.1 on 11/27/23. Will hold afternoon dose of Lasix on 11/27/23.
-Patient had MATTHIAS 11/27/23 and EF is stable at 40%. MR appears severe and there was a thin, filamentous, hypermobile density concerning for a vegetation on the anterior mitral valve leaflet. Check blood cultures x2 now.
-Hospitalist attending notified of MATTHIAS findings and ID consulted 11/27/23
-Patient was also being evaluated for TAVR vs SAVR. CT surgery saw the patient this admission
- EF 35-40% this admission. EF previously normal at [facility] in 11/2022. CM regimen includes Toprol XL 100 mg BID (had been 75 mg BID prior to admission), Toprol XL 25 mg daily (outpatient dose), lisinopril 2.5 mg daily (new this admission) and Farxiga 10
mg daily (new this admission)
-Patient with h/o permanent Afib on admission. Outpatient dose of Eliquis 5 mg BID resumed 11/23/23. Rates increased and patient symptomatic so Toprol XL dose increased and amiodarone 200 mg TID added 11/24/23. Patient has received a 1.8 gram load as of
11/27/23. Check ECG, QTc was 498 ms on 11/24/23
-Carotid u/s imaging with evidence of severe high grade left subclavian stenosis and right carotid stenosis 50-69%
-LDL 36. Cont atorvastatin 40 mg daily which is new this admission because patient was taking simvastatin 40 mg daily prior to admission
HPI: 73-year-old woman with a past medical history of hypertension, insulin-dependent diabetes, gout, prior cellulitis, obesity, and severe aortic stenosis.� Echocardiography performed in November 2022 showed preserved LV function with a mean gradient
of 47 mmHg and eccentric mild to moderate mitral regurgitation.� She presented to the [facility] emergency room in August with congestive heart failure with new A-fib and rapid ventricular response.� She was rate controlled and diuresed
and discharged.� Attempts to restore normal sinus rhythm were unsuccessful and she was readmitted with recurrent heart failure on October 23.� She was again diuresed over a 2-week hospitalization followed by 1 week in rehab.� Cardioversion on
amiodarone was reattempted but she went back into atrial fibrillation.� Since being home she has felt better but is still not back to her baseline.
Progress Note - Bag Turner
Subjective
Date of Service: November 27, 2023
No chest pain
Objective
Labs:
11/24/23 03:54
11/27/23 03:35
Labs
Hgb 12.2 g/dL (12.0-16.0) 11/24/23 03:54
Hct 36.2 % (37.0-47.0) L 11/24/23 03:54
Plt Count 170 10^3/uL (130-400) 11/24/23 03:54
Sodium 136 mmol/L (135-145) 11/27/23 03:35
Potassium 4.2 mmol/L (3.5-5.1) 11/27/23 03:35
BUN 56 mg/dl (7-17) H 11/27/23 03:35
Creatinine 1.1 mg/dL (0.6-1.0) H 11/27/23 03:35
Glucose 157 mg/dl (70-99) H 11/27/23 03:35
Vital Signs and I&O:
Vital Signs
Temp Pulse Resp BP Pulse Ox
97.9 F 66 20 116/97 99
11/27/23 11:51 11/27/23 09:16 11/27/23 11:51 11/27/23 03:29 11/27/23 09:16
Vital Signs
Temp Pulse Resp BP Pulse Ox
97.9 F 66 20 116/97 99
11/27/23 11:51 11/27/23 09:16 11/27/23 11:51 11/27/23 03:29 11/27/23 09:16
Intake & Output
11/25/23 11/26/23 11/27/23 11/28/23
05:59 06:59 06:59 06:59
Intake Total 240 / 240
Output Total 1525 / 1525
Balance -1285 / -1285
Physical Exam
Physical Exam
General: NAD
HEENT: EOMI
Heart: Irreg irreg, 2/6 basal systolic murmur
Lungs: CTA B/L
Extremities: No edema B/L LE
Neuro: Grossly nonfocal
[2023-11-27] MEDS: NOVOLOG FLEXPEN-LOW RESISTANCE SC (12:51)
[2023-11-27 12:52] LABS: Glucose - Point of Care 136 mg/dl (70-99)
[2023-11-27] MEDS: NOVOLOG FLEXPEN 4 UNITS SC ×2 (13:00→18:26)
--- NOTE | 2023-11-27 13:04 | CON.ID ---
Consultation
-
Date/Time Consultation Requested: 11/27/23 10:34
Date/Time Consultation Performed: 11/27/23 13:04
Requesting Provider: Dr Pelaez
Performing Provider: Dr Chneg
Reason for Consultation: mitral valve vegetations- r/o IE
Chief Complaint / Past History
Chief Complaint
afib with rvr
History of Present Illness
Ms Martinez is a 73 year old female with past medical history of uterine cancer s/p HERIBERTO, no chemo/XRT, afib wiht RVR, chf, uncontrolled dm2 who presented here for elective cardiac catheterization; cath notable for two vessel disease and valvular
disease. Reports her weight has been variable recently with a diagnosed of decompensated heart failure managed with aggressive dicuresis. Known lumbar stenosis and chronic back pain. On arrival denied: chest pain, shortness of breath, nausea,
vomiting, diarrhea, fevers, headache, visual disturbances, neck stiffness, rash, focal neurological deficit, dysuria. She complained of a productive cough on arrival which is onoing. Has lived in [place] her entire life. No previous episodes of
bacteremia she is aware of. Cellulitis history was remote. No significant time around farm animals.
Since arrival here 11/22/23 (7 days ago) there are no documented fevers, bp overall stable, wbc count 11/22 7.1 and 11/23 6.6, hgb 12, plt normal, there was no differential done, cr on arrival 0.7 now 1.1, a1c 9.2, procalcitonin <0.05, LFTs have not been
checked, UA >30 squamous cells and no pyuria, vascular US: no significant stenosis, orthopantogram: 'No periapical radiolucency identified at this time to suggest periapical abscess formation.' CT chest 11/23 read as bilbasilar pneumonia L>R, a single
blood culture is done thus far - second in progress, sputum culture was usual resp fatou, she has been on miconazole but no system antibiotics throughout this time. MATTHIAS: severe MR: with a possible vegetation, severe , normal TV, normal PV,
patient is undergoing evaluation for possible valve replacemetns.
Past History
Additional Past Medical History:
Aortic stenosis
Mitral regurgitation
Hypertension
Hyperlipidemia
Obesity (BMI 34)
Atrial fibrillation status post cardioversion 2022
Chronic HFrEF (35%)
Type 2 diabetes (A1c 9.4)
Lumbar stenosis
Ambulatory dysfunction (uses cane)
Additional Past Surgical History:
BL knee replacements
cataract exraction
cervical laminectomy c4-5
Allergy History:
hylan G-F 20 Allergy (Verified 11/22/23 08:15)
Swelling
Medications Reviewed: Yes
Social History
Tobacco: Non-Smoker
Alcohol: None
Drug: None
Family History
Family History: Not Pertinent
Review of Systems
Review of Systems
General: Negative Fever or Chills
All systems: All other systems were reviewed and were negative
Vital Signs
Temp Pulse Resp BP Pulse Ox
97.9 F 66 20 116/97 99
11/27/23 11:51 11/27/23 09:16 11/27/23 11:51 11/27/23 03:29 11/27/23 09:16
Physical Exam
Lab / Diagnostic Study Results
11/24/23 03:54
11/27/23 03:35
Procalcitonin < 0.05 ng/ml (0.0-0.25) 11/23/23 09:45
Ur Squamous Epith Cells >30 /LPF (Few) 11/22/23 20:10
Microbiology Results
Micro:
11/27/23 12:17 Blood Culture - Pending
Blood/Venous
11/23/23 23:25 Respiratory Culture - Final
Tracheal Aspirate Usual Respiratory Fatou
Gram Stain - Final
11/22/23 20:09 Influenza Types A & B (YUMIKO) - Final
Nasal Swab Negative for Influenza A & B, NAAT
Negative results must be combined with clinical observations
and patient history.
Nucleic Acid Amplification test (NAAT)performed on the
[employer] platform.
Assessment / Plan
Assessment for Possible Endocarditis - possible vegetation on MATTHIAS
history of uterine cancer s/p HERIBERTO, no chemo/XRT
- agree with blood cultures, send a third set in the AM
- has been afebrile x 7days here
- check CBC with differential, CMP, RF, NADIYA, esr, crp, legionella urine antigen; note negative procalcitonin
- EKG - no blocks
- would not start empiric antibiotics at this time, follow cultures
--- NOTE | 2023-11-27 13:19 | CM ---
Chart reviewed. Patient is independent of ADLS, lives alone in a [address], 4 [place], ambulates with a SPC also has a walker. Patient is current with [facility]. Patient went for a MATTHIAS today. Blood cultures pending. Patient waiting on TAVR vs SAVR.
CM to follow
[2023-11-27] MEDS: LASIX IV (15:47)
--- NOTE | 2023-11-27 16:06 | W.PN.UPDATE ---
Update Note
Progress Note Update
I had a long discussion with the patient and her son. Aware of our findings on MATTHIAS. Will need AVR + MVrR (probably replacement) + CABG x 2 + LA MAZE and LAAE. We went over the risks and benefits as well as the STS risk. She was well informed and all
questions were answered. She accepts the risks and wishes to move forward. Tentative plan for surgery on Monday with me. This will allow her time to wash out her eliquis/farxiga etc.
Thank you for involving me in the care of this patient. Please feel free to contact me with any questions or concerns.
Guido Najera MD, MS
Cardiothoracic Surgeon
[facility]
This dictation was created using the [employer] dictation system. Please excuse any grammatical, typographical, or 'sound alike' errors.
[2023-11-27] MEDS: VENTOLIN NEBULES 2.5 MG INH (16:19)
--- NOTE | 2023-11-27 16:33 | W.PN.UPDATE ---
Update Note
Progress Note Update
Patient's MATTHIAS was reviewed with Dr. Najera. Due to the results found on MATTHIAS, patient will be taken to the [facility] on Friday December 01, 2023. Patient's eliquis, farxiga, and lisinopril were discontinued. PFTs ordered. Type and screen to be resent .
Consent obtained.
Christina ÁLVAREZ
Cardiac Surgery
[2023-11-27] MEDS: TYLENOL 650 MG PO ×2 (17:45→23:09)
[2023-11-27] MEDS: ALDACTONE 25 MG PO (17:46)
[2023-11-27] MEDS: CLARITIN 10 MG PO (17:46)
[2023-11-27] MEDS: LIPITOR 40 MG PO (17:46)
[2023-11-27 18:25] LABS: Glucose - Point of Care 164 mg/dl (70-99)
[2023-11-27] MEDS: NOVOLOG FLEXPEN-LOW RESISTANCE 1 UNITS SC (18:26)
[2023-11-27 21:35] LABS: Glucose - Point of Care 270 mg/dl (70-99)
[2023-11-27] MEDS: LEVEMIR 0.119999999999999996 UNITS SC (23:08)
--- NOTE | 2023-11-27 23:49 | PTCARENOTE ---
Pt pleasant. Assessment noted as documented. Tele- afib. HR 80-90s. Pt c/o sore throat. Tylenol administered. Pt states relief. No c/o CP/discomfort. Currently in bed; call callum w/in reach.
[2023-11-28] VITALS (10 sets, daily range): BP systolic 93–128; BP diastolic 59–92; PULSE 95; BMI 33.4
[2023-11-28 05:29] LABS: % Basophils 0.4 % (0-2); % Eosinophils 1.8 % (0-6); % Immature Granulocytes 0.2 % (0-0.5); % Lymphocytes 27.7 % (20.5-51.1); % Monocytes 5.8 % (1.7-9.3); % Neutrophils 64.1 % (42.2-75.2); Absolute Eosinophils 0.2 10^3/uL (0-0.7); Absolute Lymphocytes 2.3 10^3/uL (1.2-3.4); Absolute Monocytes 0.5 10^3/uL (0.1-0.6); Absolute Neutrophils 5.2 10^3/uL (1.4-6.5); Hematocrit 37.1 % (37.0-47.0); Mean Corp Hgb Conc. 32.3 g/dL (33.0-37.0); Mean Corpuscular Hgb 29.9 pg (27.0-31.0); Mean Corpuscular Volume 92.5 fL (81.0-99.0); Mean Platelet Volume 9.9 fL (7.4-10.4); Nucleated Red Blood Cells % 0 %; Platelet Count 201 10^3/uL (130-400); Red Blood Cell Count 4.01 10^6/uL (4.20-5.40); Red Cell Dist. Width 14.6 % (11.5-14.5); White Blood Cell Count 8.2 10^3/uL (4.8-10.8)
[2023-11-28 05:50] LABS: ALT (SGPT) 30 U/L (0-35); AST (SGOT) 39 U/L (14-36); Albumin 3.8 g/dl (3.5-5.0); Alkaline Phosphatase 96 U/L (38-126); Blood Urea Nitrogen 55 mg/dl (7-17); Calcium 9.3 mg/dl (8.4-10.2); Carbon Dioxide 25 mmol/L (22-30); Chloride 103 mmol/L (98-107); Estimated Creatinine Clearance 53 ml/min; Glucose 144 mg/dl (70-99); Potassium 5.1 mmol/L (3.5-5.1); Sodium 135 mmol/L (135-145); Total Protein 7.1 g/dl (6.3-8.2); eGFR > 60.00
[2023-11-28 07:00] LABS: Glucose - Point of Care 127 mg/dl (70-99)
[2023-11-28 07:31] LABS: Erythrocyte Sed Rate 29 mm/hour (0-20)
--- NOTE | 2023-11-28 08:10 | PN.DE.MGMTRT ---
Insulin Management
- -
11/28/2023: Diabetes Management F/U:
Patient seen this morning, A/O x3, sitting up in bed, pleasant, offers no complaints. Awaiting CT surgery on Monday.
Glucose stable, premeal range 127 to 164, HS glucose trended up to 270
Will increase dinner time NovoLog dose to 6 units and resume Farxiga 10mg daily.
Cont NovoLog 4 units before breakfast/ lunch, Levemir to 12 units @HS, and low corrective insulin with meals.
Pt reports she has a working meter at home with enough supplies.
Diabetes History
- -
Type of Diabetes: 2 requiring insulin
Pre-Admission Diabetes Regimen
11/28/23
05:06
Creatinine 0.9
Lab Results
Hemoglobin A1c 9.2 % (4.0-5.6) H 11/23/23 02:16
Insulin Pump Settings
IP Diabetes Regimen
11/27/23 11/27/23 11/27/23
12:50 18:24 21:32
Glucose
POC Glucose 136 H 164 H 270 H
11/28/23 11/28/23
05:06 06:58
Glucose 144 H
POC Glucose 127 H
Meal type: Dinner
Amount consumed: 100%
Patient Education
[2023-11-28] MEDS: NOVOLOG FLEXPEN-LOW RESISTANCE SC ×2 (08:37→18:05)
--- NOTE | 2023-11-28 08:37 | W.PN.HOSP.TC ---
Addendum entered and electronically signed by Shola Pelaez MD 11/28/23 12:25:
Hypokalemia, resolved
Rise in creatinine only
Original Note:
Today's Communication/Plan
-
IV Lasix.
Assessment / Plan
Assessment / Plan
Gen: NAD, AAOx3.
Eyes: EOMI, PERRLA, no scleral icterus.
Neck: supple.
CV: remains irreg/irreg, +S1/S2, no m/r/g.
Resp: mild wheezes
Abd: +BS, soft, NT, ND
Skin: No rashes.
Neuro: continues to remain CN 2-12 intact, non-focal.
Psych: Normal mood and affect.
A/P:
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
-Plan for CABG along with AVR and probable mitral valve replacement along with MAZE procedure this coming Thursday 11/30.
-Holding Eliquis, lisinopril, and Farxiga.
-Follow-up cultures
-Appreciated CT surgery input
Vegetations on mitral valve-concerns for infective endocarditis versus mitral valve chordal rupture:
-MATTHIAS shows possible vegetation on the mitral valve
-Blood cultures taken
-Discussed with cardiology today on 11/27
-Requested ID consultation and input appreciated
-Hold off on antibiotic, patient looks nontoxic and remains afebrile.
RHC/LHC 11/22/23:
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
2: Severe aortic stenosis in the setting of low cardiac output.
3: Markedly elevated pulmonary pressures in the setting of low cardiac output with elevated left ventricular filling pressures.
Echo: �Normal left ventricular wall thickness. Normal left ventricular chamber size.
�Mildly reduced left ventricular systolic function. Left ventricular ejection
�fraction is 35-40% by Arreguin's method. 30% by volumetric assessment.� Global
�hypokinesis.
�Normal right ventricular size. Reduced right ventricular systolic function.
�Severely enlarged left atrium
�Moderately enlarged right atrium
�Mild mitral stenosis with peak and mean gradients of 10 and 4 mmHg.�
�Moderate eccentric mitral regurgitation
�Severe aortic stenosis. Peak/mean gradients across the aortic valve are 56/35
�mmHg.� Using an LVOT diameter of 1.9 cm, the HOMERO = .75cm2.� No aortic
�regurgitation is seen.
�Mild pulmonic regurgitation.
Acute on chronic HFrEF:
-Patient transferred to the hospital service few days ago.
-echo above, notable for EF 30%, global hypokinesis, severe , mod MR, mild MS
-cont IV Lasix 60mg IV BID
-daily wts, I/Os
-echo above
-cont BB/Aldactone
DM2:
-poorly controlled with a1c 9.2%
-cont Levemir/premeal Novolog/Farxiga
-cont SSI/accuchecks
-diabetes CARPET CUTTER following
Permanent Afib with RVR:
-cont BB (higher than home dose)/Eliquis/Amio
-was on cardizem gtt, now off
-cardiology following
-MATTHIAS 11/27/23
Productive cough:
-CXR: Minor left basilar opacification which could represent subsegmental atelectasis and/or pneumonia.
-procal < 0.05
-no documented fever this admission
-No leukocytosis
-no evidence of bacterial PNA at this time
-cont incentive spirometer
Other problems:
Gout
Obesity due to excess calories: Encourage wt loss. Affects all aspects of care.
CAD, severe , mod MR: 2V disease as per cath 11/22/23. Cont BB/statin. CT surgery following.
HLD: cont statin
GERD: Cont PPI
FULL/Eliquis
Total time spent on today's encounter was 52 minutes which included time spent in counseling the patient/family regarding diagnosis and treatment plan as listed above, goals of care, and symptom management. Case was discussed with nursing staff,
specialists, and care coordinators/case management. All labs and imaging personally reviewed by me. Remainder the time spent in detailed review of previous records, lab data, imaging, and other medical provider documentation.
Anticipated Discharge: > 48 hours
Subjective/Interval History
-
Date of Service: November 28, 2023
Patient feels better today, less shortness of breath. Afebrile
Objective Data
-
Labs:
Laboratory Results
11/28/23 11/28/23
05:06 05:07
WBC 8.2
Hgb 12.0
Hct 37.1
Plt Count 201
Sodium 135
Potassium 5.1
Chloride 103
Carbon Dioxide 25
BUN 55 H
Creatinine 0.9
Glucose 144 H
Calcium 9.3
Total Bilirubin 1.0
AST 39 H
ALT 30
Alkaline Phosphatase 96
Vital Signs:
Vital Signs
Temp Pulse Resp BP Pulse Ox
97.5 F 74 16 99/62 100
11/28/23 06:54 11/28/23 06:54 11/28/23 06:54 11/28/23 03:26 11/28/23 06:54
I&O
11/27/23 11/28/23 11/29/23
06:59 06:59 06:59
Intake Total 240 / 240
Output Total 1525 / 1525 900 / 900
Balance -1285 / -1285 -900 / -900
[2023-11-28] MEDS: TOPROL XL 100 MG PO ×2 (08:41→20:55)
[2023-11-28] MEDS: PACERONE 200 MG PO ×3 (08:41→22:12)
[2023-11-28] MEDS: MAGNESIUM OXIDE 500 MG PO (08:41)
[2023-11-28] MEDS: KCL 20 MEQ PO (08:41)
[2023-11-28] MEDS: PROTONIX 40 MG PO (08:41)
[2023-11-28] MEDS: NOVOLOG FLEXPEN 4 UNITS SC ×2 (08:42→12:30)
[2023-11-28] MEDS: DESENEX/MITRAZOL/ZEASORB 1 APPLIC TOPICAL ×2 (08:43→22:12)
[2023-11-28] MEDS: LASIX 60 MG IV (08:43)
--- NOTE | 2023-11-28 08:54 | W.PN.ID1 ---
Date of Service
Date of Service: November 28, 2023
Today's Communication
- tender L arm PIV, 4 days old - recommend removal and replacement, midline acceptable if needed
suspicion for endocarditis/culture negative endocarditis is low; would still follow cultures another two days
- if valves resected then please send for culture
- would not start empiric antibiotics at this time, follow cultures
Assessment / Plan
Assessment for Possible Endocarditis - possible vegetation on MATTHIAS
history of uterine cancer s/p HERIBERTO, no chemo/XRT
- has been afebrile over a week here
- CBC differential, ESR, CRP - not suggestive of infection, ESR normal for her age; CMP no significant transaminitis
- legionella urine antigen pending - message left with nurse to obtain
- suspicion for endocarditis/culture negative endocarditis is low; would still follow cultures another two days
- 1 Major criteria thus far
- 0 Minor criteria thus far
- still pending:
-RF, NADIYA - pending - will take some time, these do not necessarily have to be resulted before making a clinical decision if cultures are negative and patient remains afebrile
-blood cultures x3 in progress
- EKG - no blocks, ua not consistent with glomerulonephritis
- tender L arm PIV, 4 days old - recommend removal and replacement, midline acceptable if needed
- if valves resected then please send for culture
- would not start empiric antibiotics at this time, follow cultures
Chief Complaint
-: Other (rule out endocarditis)
Subjective / Review of Systems
afebrile
bp stable
no leukocytosis
hgb stable
esr normal for her age, crp minimally elevated
crp stable
RF and NADIYA pending
note plans for valve replacement monday
in good spirits
L arm PIV tender - 4 days old, no erythema or drainage thus far - told floor RNs needs to be removed
back pain first thing in the AM - dissapates with movement
no history of breeding animals, doesnt take unpasturized milk
Vital Signs / Physical Exam
Vital Signs
Vital Signs
Temp Pulse Resp BP Pulse Ox
97.5 F 74 16 99/62 100
11/28/23 06:54 11/28/23 06:54 11/28/23 06:54 11/28/23 03:26 11/28/23 06:54
Physical Exam
Constitutional: No Acute Distress
Cardiovascular: Regular Rate and S1/S2; Negative Murmur or Rub
Pulmonary: Clear and Symmetric; Negative Wheezes or Rales
Gastrointestinal: Soft, Non Tender, Non Distended and Normal Bowel Sounds
Extremities: Other (no olser nodes); Negative Splinter Hemorrhage (fingers or toes) or Jan[place]ay Lesions
Skin: Warm and Dry; Negative Rash or Jaundice
Neurological: Awake and Alert
Psychological: Calm
Objective Data
Lab Data
Lab Results
11/28/23 05:07
11/28/23 05:06
ESR 29 mm/hour (0-20) H 11/28/23 05:07
Estimated Creat Clear 53 ml/min 11/28/23 05:06
Total Bilirubin 1.0 mg/dl (0.2-1.3) 11/28/23 05:06
AST 39 U/L (14-36) H 11/28/23 05:06
ALT 30 U/L (0-35) 11/28/23 05:06
Alkaline Phosphatase 96 U/L (38-126) 11/28/23 05:06
C-Reactive Protein 15.40 mg/L (0.0-10.00) H 11/28/23 05:07
Most recent labs reviewed.
Micro Results:
11/28/23 05:06 Blood Culture - Pending
Blood/Venous
11/27/23 14:47 Blood Culture - Pending
Blood/Venous
11/27/23 12:17 Blood Culture - Pending
Blood/Venous
11/23/23 23:25 Respiratory Culture - Final
Tracheal Aspirate Usual Respiratory Rosalie
Gram Stain - Final
11/22/23 20:09 Influenza Types A & B (YUMIKO) - Final
Nasal Swab Negative for Influenza A & B, NAAT
Negative results must be combined with clinical observations
and patient history.
Nucleic Acid Amplification test (NAAT)performed on the
[employer] platform.
--- NOTE | 2023-11-28 10:26 | CM ---
Chart reviewed. Patient is going for a CABG/AVR/MVR 12/01/23. Patient is independent of ADLS, lives alone in a 1 [address]TH, [facility], ambulates with a SPC and walker. Patient is current with [facility]. Plan is for the patient to return home with CT
Transitional RN. CM to follow
--- NOTE | 2023-11-28 11:17 | W.PN.CARDCBS ---
Addendum entered and electronically signed by Alex Girard MD 11/28/23 15:23:
I saw and examined the patient.
The AIR CONDITIONING TECHNICIAN or PA's note was reviewed and I agree with the note.
Comment: General: Well developed, well nourished in NAD.
Neck: Supple, no JVD, HJR, carotids +2 B/L, no bruits bilaterally.
Heart: Non displaced PMI, irregular, 2/6 systolic murmur throughout precordium, No S3, S4, no rubs.
Lungs: Scattered rhonchi
Extremities: No clubbing, cyanosis or edema bilaterally.
Neuro: Grossly nonfocal, awake, alert and oriented x3.
She seems to be doing okay. She has not diuresed much and unclear how much of this is volume overload. Her BUN is up to 55. Consider change to oral Lasix next 24 hours. Start IV heparin with holding Eliquis. Plan is for CABG/AVR/mitral valve
repair/maze on Thursday 11/30.
Original Note:
Today's Communication / Plan
-
Ongoing IV diuresis
Tentatively scheduled for surgery Monday
Impression / Plan
-
Primary Care Physician: Dr. Jessica De La Cruz
Primary Protective Services Case Worker: Dr. Dion Gastelum of [facility]
Impression:
Acute on chronic HFrEF
CM EF 35-40% by echo 11/23/23
Symptomatic Permanent Afib with RVR
2V CAD by cath 11/22/23
Severe Aortic stenosis MG 23mmHg, HOMERO 0.5cm2
Moderate - severe MR
severe high grade L subclavian stenosis and R carotid stenosis 50-69%
HTN
HLD
DM
GERD
Gout
Possible mitral valve vegetation by echo 11/27/23
ECHO 11/23/23: EF 35 to 40%, global hypokinesis, severely enlarged LA, moderately enlarged RA, mild MS with peak/mean gradients of 10/4 mmHg, moderate eccentric MR, severe with peak/mean gradients 56/35 mmHg, HOMERO 0.75 cm�, no AR, mild UT. New
reduction in EF compared to prior echo
MATTHIAS 11/27/23: EF 40%, mild global hypokinesis with slight worsening in septum, normal RV size with reduced systolic function, severe MR with thin, filamentous, hypermobile density concerning for a vegetation on the anterior mitral valve leaflet.
Plan:
-Patient came to for a cath on 11/22/23 and was found to have LAD and Circ disease. Patient was then admitted for diuresis and ongoing work-up of severe and MR.
-Patient had MATTHIAS 11/27/23 and there was a question of possible vegetation on the anterior mitral valve leaflet. Patient was seen by CT surgery team and there is concern that echo abnormality is a torn chord so patient was evaluated for operative
options and the current plan is for CABG, AVR and MV repair or replacement tentatively scheduled for 12/01/23
-Blood cultures pending
-Weight is down only 1-2 lbs with attempts at Lasix 60 mg IV BID diuresis. Dry weight is unknown. Cre was up to 1.1 on 11/27/23 and so evening dose of Lasix was held 11/27/23. Lasix resumed 11/28/23.
-Patient was taking Bumex 2 mg PO daily prior to admission.
-EF 35-40% this admission. EF previously normal at [facility] in 11/2022. CM regimen includes Toprol XL 100 mg BID (had been 75 mg BID prior to admission), Toprol XL 25 mg daily (outpatient dose), lisinopril 2.5 mg daily (new this admission and currently on
hold awaiting surgery) and Farxiga 10 mg daily (new this admission)
-Patient with h/o permanent Afib on admission. Outpatient dose of Eliquis 5 mg BID resumed 11/23/23, but on hold for upcoming surgery. No h/o thromboembolic event
-HRs increased and patient symptomatic so Toprol XL dose increased and amiodarone 200 mg TID added 11/24/23. Patient has received a 2.4 gram load as of 11/27/23. ECG reviewed by me with QTc 511 ms in the setting of Afib and RBBB.
-Carotid u/s imaging with evidence of severe high grade left subclavian stenosis and right carotid stenosis 50-69%
-LDL 36. Cont atorvastatin 40 mg daily which is new this admission because patient was taking simvastatin 40 mg daily prior to admission
HPI: 73-year-old woman with a past medical history of hypertension, insulin-dependent diabetes, gout, prior cellulitis, obesity, and severe aortic stenosis.� Echocardiography performed in November 2022 showed preserved LV function with a mean gradient
of 47 mmHg and eccentric mild to moderate mitral regurgitation.� She presented to the [facility] emergency room in August with congestive heart failure with new A-fib and rapid ventricular response.� She was rate controlled and diuresed
and discharged.� Attempts to restore normal sinus rhythm were unsuccessful and she was readmitted with recurrent heart failure on October 23.� She was again diuresed over a 2-week hospitalization followed by 1 week in rehab.� Cardioversion on
amiodarone was reattempted but she went back into atrial fibrillation.� Since being home she has felt better but is still not back to her baseline.
Progress Note - Protective Services Case Worker
Subjective
Date of Service: November 28, 2023
No chest pain
Objective
Labs:
11/28/23 05:07
11/28/23 05:06
Labs
Hgb 12.0 g/dL (12.0-16.0) 11/28/23 05:07
Hct 37.1 % (37.0-47.0) 11/28/23 05:07
Plt Count 201 10^3/uL (130-400) 11/28/23 05:07
Sodium 135 mmol/L (135-145) 11/28/23 05:06
Potassium 5.1 mmol/L (3.5-5.1) 11/28/23 05:06
BUN 55 mg/dl (7-17) H 11/28/23 05:06
Creatinine 0.9 mg/dL (0.6-1.0) 11/28/23 05:06
Glucose 144 mg/dl (70-99) H 11/28/23 05:06
Vital Signs and I&O:
Vital Signs
Temp Pulse Resp BP Pulse Ox
97.5 F 76 16 98/59 100
11/28/23 06:54 11/28/23 06:56 11/28/23 06:54 11/28/23 06:56 11/28/23 06:54
Vital Signs
Temp Pulse Resp BP Pulse Ox
97.5 F 76 16 98/59 100
11/28/23 06:54 11/28/23 06:56 11/28/23 06:54 11/28/23 06:56 11/28/23 06:54
Intake & Output
11/26/23 11/27/23 11/28/23 11/29/23
06:59 06:59 06:59 06:59
Intake Total 240 / 240
Output Total 1525 / 1525 900 / 900
Balance -1285 / -1285 -900 / -900
Physical Exam
Physical Exam
General: NAD
HEENT: EOMI
Heart: Irreg irreg, 2/6 basal systolic murmur
Lungs: CTA B/L
Extremities: No edema B/L LE
Neuro: Grossly nonfocal
--- NOTE | 2023-11-28 11:27 | PN.CDI ---
CDI
- -
CDI:
Physician Documentation Request
Admit Date: 11/22/23 12:00
Dear Doctor Latanya,
Patient admitted for acute on chronic HF.
Laboratory Tests
11/25/23 11/26/23 11/27/23
08:05 04:31 03:35
Creatinine 0.8 0.9 1.1 H
Clarify which of the following accurately represents the patient's renal status:
KATHLEEN
Rise in creatinine only
Other
Criteria for KATHLEEN*
1 Increase in serum creatinine by > or = to 0.3 mg/dL (> or = to 26.5 micromol/L) within 48 hours, OR
2 Increase in serum creatinine to > or = to 1.5 times baseline, which is known or presumed to have occurred within 7 days, OR
3 Urine volume < 0.5 nL/kg/hour for six hours
Use of terms such as suspected, likely, concern for, or probable (associated with a specific diagnosis that is being evaluated, monitored, or treated as if it exists) are acceptable and can be coded in the inpatient setting, when documented at the
time of discharge.
Thank you,
Tasha Mckeon RN, BSN
CDI Specialist
Available via [place] text
Please use your independent medical judgment in providing your response.
*Source: Kidney Disease: Improving Global Outcomes (KDIGO) 2012
--- NOTE | 2023-11-28 11:30 | PN.CDI ---
CDI
- -
CDI:
Physician Documentation Request
Admit Date: 11/22/23 12:00
Dear Doctor Latanya,
Patient admitted for acute on chronic HF.
11/24 Potassium level: 3.4
11/24 Potassium chloride 40 meq PO stat administered.
Based on the above, could you clarify in the progress notes, the appropriate diagnosis, if significant, that supports the above abnormalities and additional evaluation, monitoring and/or treatment rendered:
Hypokalemia, resolved
Abnormal lab value insignificant
Other
Use of terms such as suspected, likely, concern for, or probable (associated with a specific diagnosis that is being evaluated, monitored, or treated as if it exists) are acceptable and can be coded in the inpatient setting, when documented at the
time of discharge.
Thank you,
Tasha Mckeon RN, BSN
CDI Specialist
Available via [place] text
Please use your independent medical judgment in providing your response.
[2023-11-28 12:23] LABS: Glucose - Point of Care 189 mg/dl (70-99)
[2023-11-28] MEDS: NOVOLOG FLEXPEN-LOW RESISTANCE 1 UNITS SC (12:29)
--- NOTE | 2023-11-28 13:59 | CM ---
Met with the patient to discuss preoperative and postoperative instructions and restrictions, along with showering guidelines. Patient is agreeable to a home visit by CT Transitional Care RN. If the patient would need rehab before going home, she
said she has been to [facility] and she is interested in [facility]. Plan is for the patient to return home with CT Transitional Care RN.
[2023-11-28 15:50] LABS: Hematocrit 39.3 % (37.0-47.0); Hemoglobin 12.7 g/dL (12.0-16.0); Mean Corp Hgb Conc. 32.3 g/dL (33.0-37.0); Mean Corpuscular Hgb 29.7 pg (27.0-31.0); Mean Corpuscular Volume 91.8 fL (81.0-99.0); Mean Platelet Volume 9.9 fL (7.4-10.4); Platelet Count 214 10^3/uL (130-400); Red Blood Cell Count 4.28 10^6/uL (4.20-5.40); Red Cell Dist. Width 14.6 % (11.5-14.5); White Blood Cell Count 7.6 10^3/uL (4.8-10.8)
[2023-11-28 16:00] LABS: APTT 32.3 Sec (23.4-35.0)
[2023-11-28] MEDS: LASIX 60 MG PO (16:34)
[2023-11-28] MEDS: SAFETUSSIN DM (SUGAR/ALCOHOL FREE) 200 MG PO ×2 (16:36→22:11)
[2023-11-28] MEDS: HEPARIN 25000 UNITS/250 ML IV (16:37)
[2023-11-28] MEDS: CLARITIN 10 MG PO (17:28)
[2023-11-28] MEDS: LIPITOR 40 MG PO (17:28)
[2023-11-28] MEDS: ALDACTONE 25 MG PO (17:30)
[2023-11-28 17:54] LABS: Glucose - Point of Care 132 mg/dl (70-99)
[2023-11-28] MEDS: NOVOLOG FLEXPEN 6 UNITS SC (18:04)
[2023-11-28 21:30] LABS: Glucose - Point of Care 256 mg/dl (70-99)
[2023-11-28] MEDS: LEVEMIR 0.119999999999999996 UNITS SC (22:11)
[2023-11-28 22:55] LABS: APTT 50.5 Sec (23.4-35.0)
--- NOTE | 2023-11-28 23:00 | PTCARENOTE ---
report received from previous RN, assumed care of pt. pt in bed, AAOx4. pt denies any pain. AFIB on monitor, HR 70's-80's. Heparin gtt infusing per protocol. POX 95-98% on room air. PIV intact and patent. see worklist for full assessment, VS, and
interventions. pt sleeping between care.
[2023-11-29] VITALS (9 sets, daily range): BP systolic 87–141; BP diastolic 52–107; PULSE 90; BMI 33.4
--- NOTE | 2023-11-29 05:20 | PTCARENOTE ---
no changes in assessment overnight, pt VSS. AFIB, RA. Heparin gtt maintained. AM labs drawn and sent. pt sleeping between care.
[2023-11-29 05:37] LABS: % Basophils 0.7 % (0-2); % Eosinophils 2.6 % (0-6); % Immature Granulocytes 0.3 % (0-0.5); % Lymphocytes 33.5 % (20.5-51.1); % Monocytes 7.4 % (1.7-9.3); % Neutrophils 55.5 % (42.2-75.2); Absolute Basophils 0.1 10^3/uL (0-0.2); Absolute Eosinophils 0.2 10^3/uL (0-0.7); Absolute Lymphocytes 2.4 10^3/uL (1.2-3.4); Absolute Monocytes 0.5 10^3/uL (0.1-0.6); Hematocrit 37.4 % (37.0-47.0); Mean Corp Hgb Conc. 32.1 g/dL (33.0-37.0); Mean Corpuscular Hgb 29.6 pg (27.0-31.0); Mean Corpuscular Volume 92.3 fL (81.0-99.0); Mean Platelet Volume 9.9 fL (7.4-10.4); Nucleated Red Blood Cells % 0 %; Platelet Count 208 10^3/uL (130-400); Red Blood Cell Count 4.05 10^6/uL (4.20-5.40); Red Cell Dist. Width 14.6 % (11.5-14.5); White Blood Cell Count 7.2 10^3/uL (4.8-10.8)
[2023-11-29 05:48] LABS: APTT 74.6 Sec (23.4-35.0)
[2023-11-29 08:06] LABS: Glucose - Point of Care 107 mg/dl (70-99)
[2023-11-29 08:34] LABS: Blood Urea Nitrogen 52 mg/dl (7-17); Calcium 9.7 mg/dl (8.4-10.2); Carbon Dioxide 24 mmol/L (22-30); Chloride 99 mmol/L (98-107); Estimated Creatinine Clearance 53 ml/min; Glucose 136 mg/dl (70-99); Potassium 4.4 mmol/L (3.5-5.1); Sodium 136 mmol/L (135-145); eGFR > 60.00
--- NOTE | 2023-11-29 08:38 | W.PN.CARDCBS ---
Today's Communication / Plan
-
Cont IV Heparin while Eliquis on hold. She has hx of perm aFib. No hx of thromboembolic event.
Plan is for CABG/AVR/MV repair/MAZE Monday.
Patient came to for a cath on 11/22/23 and was found to have LAD and Circ disease. Patient was then admitted for diuresis and ongoing work-up of severe and MR.
-Patient had MATTHIAS 11/27/23 and there was a question of possible vegetation on the anterior mitral valve leaflet. Patient was seen by CT surgery team and there is concern that echo abnormality is a torn chord
Carotid u/s imaging with evidence of severe high grade left subclavian stenosis and right carotid stenosis 50-69%
Remains euvolemic, cont oral lasix. Cr stable. Dry wt unknown.
-Patient was taking Bumex 2 mg PO daily prior to admission.
BC have been negative, ID input appreciated, observe off diuretics.
Impression / Plan
-
Primary Care Physician: Dr. Jessica De La Cruz
Primary Carbon Dioxide Operator: Dr. Dion Gastelum of [facility]
Impression:
Acute on chronic HFrEF
CM EF 35-40% by echo 11/23/23
Permanent Afib
2V CAD by cath 11/22/23
Severe Aortic stenosis MG 23mmHg, HOMERO 0.5cm2
Moderate - severe MR
severe high grade L subclavian stenosis and R carotid stenosis 50-69%
HTN
HLD
DM
GERD
Gout
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
ECHO 11/23/23: EF 35 to 40%, global hypokinesis, severely enlarged LA, moderately enlarged RA, mild MS with peak/mean gradients of 10/4 mmHg, moderate eccentric MR, severe with peak/mean gradients 56/35 mmHg, HOMERO 0.75 cm�, no AR, mild DE. New
reduction in EF compared to prior echo
MATTHIAS 11/27/23: EF 40%, mild global hypokinesis with slight worsening in septum, normal RV size with reduced systolic function, severe MR with thin, filamentous, hypermobile density concerning for a vegetation on the anterior mitral valve leaflet.
Plan:
Cont IV Heparin while Eliquis on hold. She has hx of perm aFib. No hx of thromboembolic event.
Plan is for CABG/AVR/MV repair/MAZE Monday.
Patient came to for a cath on 11/22/23 and was found to have LAD and Circ disease. Patient was then admitted for diuresis and ongoing work-up of severe and MR.
-Patient had MATTHIAS 11/27/23 and there was a question of possible vegetation on the anterior mitral valve leaflet. Patient was seen by CT surgery team and there is concern that echo abnormality is a torn chord
Carotid u/s imaging with evidence of severe high grade left subclavian stenosis and right carotid stenosis 50-69%
Remains euvolemic, cont oral lasix. Cr stable. Dry wt unknown.
-Patient was taking Bumex 2 mg PO daily prior to admission.
BC have been negative, ID input appreciated, observe off diuretics.
Cont GDMT for CM, EF 35-40% this admission. EF previously normal at [facility] in 11/2022. CM regimen includes Toprol XL 100 mg BID (had been 75 mg BID prior to admission), Toprol XL 25 mg daily (outpatient dose), lisinopril 2.5 mg daily (new this admission
and currently on hold awaiting surgery) and Farxiga 10 mg daily (new this admission)
Cont statin therapy
-LDL 36. Cont atorvastatin 40 mg daily which is new this admission because patient was taking simvastatin 40 mg daily prior to admission
Discussed with nursing.
HPI: 73-year-old woman with a past medical history of hypertension, insulin-dependent diabetes, gout, prior cellulitis, obesity, and severe aortic stenosis.� Echocardiography performed in November 2022 showed preserved LV function with a mean gradient
of 47 mmHg and eccentric mild to moderate mitral regurgitation.� She presented to the [facility] emergency room in August with congestive heart failure with new A-fib and rapid ventricular response.� She was rate controlled and diuresed
and discharged.� Attempts to restore normal sinus rhythm were unsuccessful and she was readmitted with recurrent heart failure on October 23.� She was again diuresed over a 2-week hospitalization followed by 1 week in rehab.� Cardioversion on
amiodarone was reattempted but she went back into atrial fibrillation.� Since being home she has felt better but is still not back to her baseline.
Progress Note - Carbon Dioxide Operator
Subjective
Date of Service: November 29, 2023
Pt seen and examined. No cp or dyspnea.
Objective
Labs:
11/29/23 05:19
11/29/23 06:37
Labs
Hgb 12.0 g/dL (12.0-16.0) 11/29/23 05:19
Hct 37.4 % (37.0-47.0) 11/29/23 05:19
Plt Count 208 10^3/uL (130-400) 11/29/23 05:19
APTT 74.6 Sec (23.4-35.0) H 11/29/23 05:19
Sodium 136 mmol/L (135-145) 11/29/23 06:37
Potassium 4.4 mmol/L (3.5-5.1) 11/29/23 06:37
BUN 52 mg/dl (7-17) H 11/29/23 06:37
Creatinine 0.9 mg/dL (0.6-1.0) 11/29/23 06:37
Glucose 136 mg/dl (70-99) H 11/29/23 06:37
Vital Signs and I&O:
Vital Signs
Temp Pulse Resp BP Pulse Ox
97.4 F 75 16 107/57 96
11/29/23 06:45 11/29/23 06:48 11/29/23 06:45 11/29/23 06:48 11/29/23 06:45
Vital Signs
Temp Pulse Resp BP Pulse Ox
97.4 F 75 16 107/57 96
11/29/23 06:45 11/29/23 06:48 11/29/23 06:45 11/29/23 06:48 11/29/23 06:45
Intake & Output
11/27/23 11/28/23 11/29/23 11/30/23
06:59 06:59 06:59 06:59
Intake Total 240 / 240 38 / 38
Output Total 1525 / 1525 900 / 900 1100 / 1100
Balance -1285 / -1285 -900 / -900 -1062 / -1062
Physical Exam
Physical Exam
General: No acute distress, AAOX3
Neck: Negative JVD
Heart: Irregularly irregular, Negative S3 positive S1/S2, Negative S4, No murmur
Lungs: CTA b/l, negative wheezes/rales/rhonchi
Abd: Positive BS, NT/ND, neg rebound/rigidity/guarding
Ext: Negative cyanosis/clubbing/edema
Neuro: nonfocal
--- NOTE | 2023-11-29 08:45 | W.PN.ID1 ---
Date of Service
Date of Service: November 29, 2023
Today's Communication
- if valves resected then please send for culture
- would not start empiric antibiotics at this time, follow cultures
Assessment / Plan
Assessment for Possible Endocarditis - possible vegetation on MATTHIAS
history of uterine cancer s/p HERIBERTO, no chemo/XRT
- has been afebrile over a week here
- no leukocytosis or L shift, eos present, cr stable, legionella urine antigen neg
- suspicion for endocarditis/culture negative endocarditis is low
- 1 Major criteria thus far
- 0 Minor criteria thus far
- still pending:
-RF, NADIYA - pending - will take some time, these do not necessarily have to be resulted before surgery if cultures are negative and patient remains afebrile
-blood cultures x3 in progress - no growth to date
- EKG - no blocks, ua not consistent with glomerulonephritis
- if valves resected then please send for culture
- would not start empiric antibiotics at this time, follow cultures
Chief Complaint
-: Other (rule out endocarditis)
Subjective / Review of Systems
remains afebrile
bp stable
still with nonproductive cough
otherwise feels well
R arm PIV was removed -no erythema warmth or cord at previous site
no complaints
Vital Signs / Physical Exam
Vital Signs
Vital Signs
Temp Pulse Resp BP Pulse Ox
97.4 F 75 16 107/57 96
11/29/23 06:45 11/29/23 06:48 11/29/23 06:45 11/29/23 06:48 11/29/23 06:45
Physical Exam
Constitutional: No Acute Distress
Cardiovascular: Regular Rate and S1/S2; Negative Murmur or Rub
Pulmonary: Clear and Symmetric; Negative Wheezes or Rales
Gastrointestinal: Soft, Non Tender, Non Distended and Normal Bowel Sounds
Extremities: Other (right arm PIV removed, no erythema, warmth, swelling or drainage at the site)
Skin: Warm and Dry; Negative Rash or Jaundice
Objective Data
Lab Data
Lab Results
11/29/23 05:19
11/29/23 06:37
ESR 29 mm/hour (0-20) H 11/28/23 05:07
APTT 74.6 Sec (23.4-35.0) H 11/29/23 05:19
Estimated Creat Clear 53 ml/min 11/29/23 06:37
Total Bilirubin 1.0 mg/dl (0.2-1.3) 11/28/23 05:06
AST 39 U/L (14-36) H 11/28/23 05:06
ALT 30 U/L (0-35) 11/28/23 05:06
Alkaline Phosphatase 96 U/L (38-126) 11/28/23 05:06
C-Reactive Protein 15.40 mg/L (0.0-10.00) H 11/28/23 05:07
Most recent labs reviewed.
Micro Results:
11/28/23 05:06 Blood Culture - Preliminary
Blood/Venous No Growth in 24 hours- Final report to follow
11/27/23 14:47 Blood Culture - Preliminary
Blood/Venous No Growth in 24 hours- Final report to follow
11/27/23 12:17 Blood Culture - Preliminary
Blood/Venous No Growth in 24 hours- Final report to follow
11/28/23 08:51 Legionella Urinary Antigen - Final
Urine Negative for Legionella pneumophila Serogroup 1 antigen.
A negative result does not rule out the possiblity of
Legionella infection due to other serogroups or species of
Legionella. Clinical correlation is recommended.
11/23/23 23:25 Respiratory Culture - Final
Tracheal Aspirate Usual Respiratory Rosalie
Gram Stain - Final
11/22/23 20:09 Influenza Types A & B (YUMIKO) - Final
Nasal Swab Negative for Influenza A & B, NAAT
Negative results must be combined with clinical observations
and patient history.
Nucleic Acid Amplification test (NAAT)performed on the
[employer] platform.
--- NOTE | 2023-11-29 09:05 | W.PN.HOSP.TC ---
Today's Communication/Plan
-
Continue current management. Plan for surgery on Monday
Assessment / Plan
Assessment / Plan
Gen: NAD, AAOx3.
Eyes: EOMI, PERRLA, no scleral icterus.
Neck: supple.
CV: remains irreg/irreg, +S1/S2, no m/r/g.
Resp: mild wheezes
Abd: +BS, soft, NT, ND
Skin: No rashes.
Neuro: continues to remain CN 2-12 intact, non-focal.
Psych: Normal mood and affect.
A/P:
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
-Plan for CABG along with AVR and probable mitral valve replacement along with MAZE procedure this coming Thursday 11/30.
-Holding Eliquis, lisinopril, and Farxiga.
-Follow-up cultures
-Appreciated CT surgery input
Vegetations on mitral valve-concerns for infective endocarditis versus mitral valve chordal rupture:
-MATTHIAS shows possible vegetation on the mitral valve
-Blood cultures taken
-Discussed with cardiology today on 11/27
-Requested ID consultation and input appreciated
-Hold off on antibiotic, patient looks nontoxic and remains afebrile.
RHC/LHC 11/22/23:
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
2: Severe aortic stenosis in the setting of low cardiac output.
3: Markedly elevated pulmonary pressures in the setting of low cardiac output with elevated left ventricular filling pressures.
Echo: �Normal left ventricular wall thickness. Normal left ventricular chamber size.
�Mildly reduced left ventricular systolic function. Left ventricular ejection
�fraction is 35-40% by Arreguin's method. 30% by volumetric assessment.� Global
�hypokinesis.
�Normal right ventricular size. Reduced right ventricular systolic function.
�Severely enlarged left atrium
�Moderately enlarged right atrium
�Mild mitral stenosis with peak and mean gradients of 10 and 4 mmHg.�
�Moderate eccentric mitral regurgitation
�Severe aortic stenosis. Peak/mean gradients across the aortic valve are 56/35
�mmHg.� Using an LVOT diameter of 1.9 cm, the HOMERO = .75cm2.� No aortic
�regurgitation is seen.
�Mild pulmonic regurgitation.
Acute on chronic HFrEF:
-Patient transferred to the hospital service few days ago.
-echo above, notable for EF 30%, global hypokinesis, severe , mod MR, mild MS
-cont Lasix 60mg BID but changed to oral today.
-daily wts, I/Os
-echo above
-cont BB/Aldactone
DM2:
-poorly controlled with a1c 9.2%
-cont Levemir/premeal Novolog/Farxiga
-cont SSI/accuchecks
-diabetes [employer] following
Permanent Afib with RVR:
-cont BB (higher than home dose)/Eliquis/Amio
-was on cardizem gtt, now off
-cardiology following
-MATTHIAS 11/27/23
Productive cough:
-CXR: Minor left basilar opacification which could represent subsegmental atelectasis and/or pneumonia.
-procal < 0.05
-no documented fever this admission
-No leukocytosis
-no evidence of bacterial PNA at this time
-cont incentive spirometer
Other problems:
Gout
Obesity due to excess calories: Encourage wt loss. Affects all aspects of care.
CAD, severe , mod MR: 2V disease as per cath 11/22/23. Cont BB/statin. CT surgery following.
HLD: cont statin
GERD: Cont PPI
FULL
Anticipated Discharge: > 48 hours
Subjective/Interval History
-
Date of Service: November 29, 2023
Patient feels better, no shortness of breath or chest pain. Does have some cough
Objective Data
-
Labs:
Laboratory Results
11/28/23 11/29/23 11/29/23
22:34 05:19 06:37
WBC 7.2
Hgb 12.0
Hct 37.4
Plt Count 208
APTT 50.5 H 74.6 H
Sodium Cancelled 136
Potassium Cancelled 4.4
Chloride Cancelled 99
Carbon Dioxide Cancelled 24
BUN Cancelled 52 H
Creatinine Cancelled 0.9
Glucose Cancelled 136 H
Calcium Cancelled 9.7
11/29/23
11:20
WBC
Hgb
Hct
Plt Count
APTT Pending
Sodium
Potassium
Chloride
Carbon Dioxide
BUN
Creatinine
Glucose
Calcium
Vital Signs:
Vital Signs
Temp Pulse Resp BP Pulse Ox
97.4 F 75 16 107/57 96
11/29/23 06:45 11/29/23 06:48 11/29/23 06:45 11/29/23 06:48 11/29/23 06:45
I&O
11/28/23 11/29/23 11/30/23
06:59 06:59 06:59
Intake Total 38 / 38
Output Total 900 / 900 1100 / 1100
Balance -900 / -900 -1062 / -1062
[2023-11-29] MEDS: PROTONIX 40 MG PO (09:41)
[2023-11-29] MEDS: TOPROL XL 100 MG PO ×2 (09:41→19:44)
[2023-11-29] MEDS: MAGNESIUM OXIDE 500 MG PO (09:41)
[2023-11-29] MEDS: KCL 20 MEQ PO (09:41)
[2023-11-29] MEDS: PACERONE 200 MG PO ×3 (09:41→22:05)
[2023-11-29] MEDS: LASIX 60 MG PO ×2 (09:41→16:03)
[2023-11-29] MEDS: FLUSH (NSS) 1 FLUSH IV (09:42)
[2023-11-29] MEDS: DESENEX/MITRAZOL/ZEASORB 1 APPLIC TOPICAL ×2 (09:42→19:49)
[2023-11-29] MEDS: TYLENOL 650 MG PO (09:47)
[2023-11-29 09:48] LABS: Glucose - Point of Care 122 mg/dl (70-99)
[2023-11-29] MEDS: NOVOLOG FLEXPEN 4 UNITS SC ×2 (09:48→13:29)
[2023-11-29] MEDS: NOVOLOG FLEXPEN-LOW RESISTANCE SC ×2 (09:49→13:29)
--- NOTE | 2023-11-29 10:24 | PN.DE.MGMTRT ---
Insulin Management
- -
11/29/2023 Diabetes Management Follow up
Patient seen this morning, A/O x3, resting in bed, pleasant, offers no complaints. Awaiting CT surgery on Monday.
Glucose stable, premeal range 127 to 189, HS glucose trended up to 256. Pre dinner novolog was increased to 6 units yesterday. Patient is 5', will change diet from 1800 to 1600 calories. Mercedes has been placed on HOLD in preparation for CT
surgery Monday.
Cont NovoLog 4 units before breakfast/ lunch, 6 units with dinner. Levemir to 12 units @HS, and low corrective insulin with meals.
Will follow.
Diabetes History
- -
Type of Diabetes: 2 requiring insulin
Pre-Admission Diabetes Regimen
11/29/23 11/29/23
05:19 06:37
Creatinine Cancelled 0.9
Lab Results
Hemoglobin A1c 9.2 % (4.0-5.6) H 11/23/23 02:16
Insulin Pump Settings
IP Diabetes Regimen
11/28/23 11/28/23 11/28/23
12:22 17:53 21:28
Glucose
POC Glucose 189 H 132 H 256 H
11/29/23 11/29/23 11/29/23
05:19 06:37 08:04
Glucose Cancelled 136 H
POC Glucose 107 H
11/29/23
09:46
Glucose
POC Glucose 122 H
Meal type: Dinner
Amount consumed: 100%
Patient Education
--- NOTE | 2023-11-29 11:37 | CM ---
Chart reviewed. Patient is going for a CABG/AVR/MVR on 12/01/2023. Patient is independent of ADLS, lives alone in a [address], [address] [facility], ambulates with a SPC and rolling walker. Patient is current with [facility]. Patient would prefer to go home
when medically stable for DC but if she needs to go to rehab she prefers [place] or [facility]. Patient has been a patient at [facility] in the past. Plan is for the patient to return home with CT Transitional RN vs Rehab. CM to follow
[2023-11-29 11:51] LABS: APTT 73.1 Sec (23.4-35.0)
[2023-11-29 12:17] LABS: Glucose - Point of Care 124 mg/dl (70-99)
[2023-11-29] MEDS: HEPARIN 25000 UNITS/250 ML IV (14:58)
[2023-11-29 17:37] LABS: Glucose - Point of Care 183 mg/dl (70-99)
[2023-11-29] MEDS: NOVOLOG FLEXPEN 6 UNITS SC (18:04)
[2023-11-29] MEDS: NOVOLOG FLEXPEN-LOW RESISTANCE 1 UNITS SC (18:04)
[2023-11-29] MEDS: ALDACTONE 25 MG PO (18:05)
[2023-11-29] MEDS: LIPITOR 40 MG PO (18:05)
[2023-11-29] MEDS: CLARITIN 10 MG PO (18:05)
--- NOTE | 2023-11-29 19:00 | PTCARENOTE ---
report received from previous RN, walking rounds done. pt in chair, family @ bedside. pt AAOx4. pt denies any pain. VSS. AFIB on monitor, HR 70's-90's. Heparin gtt infusing @ 1150 units/hr per protocol. POX 97% on room air. PIV intact and patent.
see worklist for full assessment, VS, and interventions. pt resting comfortably.
--- NOTE | 2023-11-29 19:12 | PTCARENOTE ---
No changes since previous shift. Vital signs remain stable. Afib noted on the monitor. Heparin gtt running at 1150 units/hr.
[2023-11-29 21:30] LABS: ANA, IgG Reflex to HEp-2 Detected (None Detected)
[2023-11-29 21:42] LABS: Glucose - Point of Care 175 mg/dl (70-99)
[2023-11-29] MEDS: LEVEMIR 0.119999999999999996 UNITS SC (22:04)
[2023-11-30] VITALS (7 sets, daily range): BP systolic 106–135; BP diastolic 60–107; O2SAT 97; BMI 32.8
--- NOTE | 2023-11-30 04:40 | PTCARENOTE ---
pt VSS, no changes in assessment overnight. AFIB. RA. Heparin gtt maintained. AM labs drawn and sent. pt sleeping between care.
[2023-11-30 04:54] LABS: Hemoglobin 13.4 g/dL (12.0-16.0); Mean Corp Hgb Conc. 32.7 g/dL (33.0-37.0); Mean Corpuscular Hgb 30.1 pg (27.0-31.0); Mean Corpuscular Volume 92.1 fL (81.0-99.0); Mean Platelet Volume 9.8 fL (7.4-10.4); Platelet Count 255 10^3/uL (130-400); Red Blood Cell Count 4.45 10^6/uL (4.20-5.40); Red Cell Dist. Width 14.7 % (11.5-14.5); White Blood Cell Count 8.2 10^3/uL (4.8-10.8)
[2023-11-30 05:06] LABS: PT 16.3 Sec (11.4-14.6)
[2023-11-30 05:15] LABS: HCO3 25.2 mmol/L (21-28); O2 Saturation % 97.5 % (94-98); PCO2 38 mmHg (32-35); PO2 85 mmHg (83-108); pH 7.43 (7.35-7.45)
[2023-11-30 05:47] LABS: ALT (SGPT) 32 U/L (0-35); AST (SGOT) 48 U/L (14-36); Albumin 4.4 g/dl (3.5-5.0); Alkaline Phosphatase 123 U/L (38-126); Blood Urea Nitrogen 52 mg/dl (7-17); Calcium 9.8 mg/dl (8.4-10.2); Carbon Dioxide 24 mmol/L (22-30); Chloride 100 mmol/L (98-107); Direct Bilirubin 0.4 mg/dl (0.0-0.4); Estimated Creatinine Clearance 52 ml/min; Glucose 143 mg/dl (70-99); Potassium 5.1 mmol/L (3.5-5.1); Sodium 133 mmol/L (135-145); Total Bilirubin 1.2 mg/dl (0.2-1.3); Total Protein 7.7 g/dl (6.3-8.2); eGFR > 60.00
--- NOTE | 2023-11-30 07:29 | W.PN.CARDCBS ---
Addendum entered and electronically signed by Matthew Miller MD 11/30/23 11:00:
I saw and examined the patient.
The [employer] O[employer] Operator's note was reviewed and I agree with the note.
Comment: Briefly, 73-year-old woman past medical history of heart failure with reduced ejection fraction, severe /MR, atrial fibrillation as well as coronary artery disease
Tentatively planned for CT surgery
Stable from a cardiovascular standpoint
Volume status is reasonable on exam today
Heart rate remains controlled in atrial fibrillation
Agree with current cardiac meds
We will continue to follow
Original Note:
Today's Communication / Plan
-
HD stable and weight down with ongoing IV diuresis
Patient is anticipating CT surgery tomorrow
Will follow
Impression / Plan
-
Primary Care Physician: Dr. Jessica De La Cruz
Primary Surface Grinder: Dr. Dion Gastelum of [facility]
Impression:
Acute on chronic HFrEF
CM EF 35-40% by echo 11/23/23
Permanent Afib
2V CAD by cath 11/22/23
Severe Aortic stenosis MG 23mmHg, HOMERO 0.5cm2
Moderate - severe MR
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
severe high grade L subclavian stenosis and R carotid stenosis 50-69%
HTN
HLD
DM
GERD
Gout
ECHO 11/23/23: EF 35 to 40%, global hypokinesis, severely enlarged LA, moderately enlarged RA, mild MS with peak/mean gradients of 10/4 mmHg, moderate eccentric MR, severe with peak/mean gradients 56/35 mmHg, HOMERO 0.75 cm�, no AR, mild LA. New
reduction in EF compared to prior echo
MATTHIAS 11/27/23: EF 40%, mild global hypokinesis with slight worsening in septum, normal RV size with reduced systolic function, severe MR with thin, filamentous, hypermobile density concerning for a vegetation on the anterior mitral valve leaflet.
Plan:
-Patient came to for a cath on 11/22/23 and was found to have LAD and Circ disease. Patient was then admitted for diuresis and ongoing work-up of severe and MR.
-Patient had MATTHIAS 11/27/23 and there was a question of possible vegetation on the anterior mitral valve leaflet. Patient was seen by CT surgery team and there is concern that echo abnormality is a torn chord so patient was evaluated for operative
options and the current plan is for CABG, AVR and MV repair or replacement tentatively scheduled for 12/01/23
-Blood cultures without growth
-Weight is down 3 lbs overnight with Lasix 60 mg IV BID overnight. Patient was taking Bumex 2 mg PO daily prior to admission. Overall weight is down 7 lbs this admission.
-Cre is stable at 0.9
-EF 35-40% this admission. EF previously normal at [facility] in 11/2022. CM regimen includes Toprol XL 100 mg BID (had been 75 mg BID prior to admission), spironolactone 25 mg daily (outpatient dose), lisinopril 2.5 mg daily (new this admission and
currently on hold awaiting surgery) and Farxiga 10 mg daily (new this admission and currently on hold for unclear reasons)
-Patient with h/o permanent Afib on admission. Outpatient dose of Eliquis 5 mg BID resumed 11/23/23, but on hold for upcoming surgery. No h/o thromboembolic event
-HRs increased and patient symptomatic so Toprol XL dose increased and amiodarone 200 mg TID added 11/24/23. Patient has received a 3.4 gram load as of 11/30/23. Check ECG 11/30/23
-Carotid u/s imaging with evidence of severe high grade left subclavian stenosis and right carotid stenosis 50-69%
-LDL 36. Cont atorvastatin 40 mg daily which is new this admission because patient was taking simvastatin 40 mg daily prior to admission
HPI: 73-year-old woman with a past medical history of hypertension, insulin-dependent diabetes, gout, prior cellulitis, obesity, and severe aortic stenosis.� Echocardiography performed in November 2022 showed preserved LV function with a mean gradient
of 47 mmHg and eccentric mild to moderate mitral regurgitation.� She presented to the [facility] emergency room in August with congestive heart failure with new A-fib and rapid ventricular response.� She was rate controlled and diuresed
and discharged.� Attempts to restore normal sinus rhythm were unsuccessful and she was readmitted with recurrent heart failure on October 23.� She was again diuresed over a 2-week hospitalization followed by 1 week in rehab.� Cardioversion on
amiodarone was reattempted but she went back into atrial fibrillation.� Since being home she has felt better but is still not back to her baseline.
Progress Note - Surface Grinder
Subjective
Date of Service: November 30, 2023
Feels well, no pain, SOB or fevers
Objective
Labs:
11/30/23 04:35
11/30/23 04:35
Labs
Hgb 13.4 g/dL (12.0-16.0) 11/30/23 04:35
Hct 41.0 % (37.0-47.0) 11/30/23 04:35
Plt Count 255 10^3/uL (130-400) D 11/30/23 04:35
PT 16.3 Sec (11.4-14.6) H 11/30/23 04:35
INR 1.30 11/30/23 04:35
APTT 83.0 Sec (23.4-35.0) H 11/30/23 04:35
Sodium 133 mmol/L (135-145) L 11/30/23 04:35
Potassium 5.1 mmol/L (3.5-5.1) 11/30/23 04:35
BUN 52 mg/dl (7-17) H 11/30/23 04:35
Creatinine 0.9 mg/dL (0.6-1.0) 11/30/23 04:35
Glucose 143 mg/dl (70-99) H 11/30/23 04:35
Vital Signs and I&O:
Vital Signs
Temp Pulse Resp BP Pulse Ox
97.2 F 73 20 118/75 99
11/30/23 07:22 11/30/23 07:24 11/30/23 07:22 11/30/23 07:24 11/30/23 07:22
Vital Signs
Temp Pulse Resp BP Pulse Ox
97.2 F 73 20 118/75 99
11/30/23 07:22 11/30/23 07:24 11/30/23 07:22 11/30/23 07:24 11/30/23 07:22
Intake & Output
11/28/23 11/29/23 11/30/23 12/01/23
06:59 06:59 06:59 06:59
Intake Total 38 / 38 420 / 420
Output Total 900 / 900 1100 / 1100 2100 / 2100
Balance -900 / -900 -1062 / -1062 -1680 / -1680
Physical Exam
Physical Exam
General: NAD
HEENT: EOMI
Heart: Irreg irreg, 2/6 basal systolic murmur
Lungs: CTA B/L
Extremities: No edema B/L LE
Neuro: Grossly nonfocal
[2023-11-30 08:38] LABS: Glucose - Point of Care 122 mg/dl (70-99)
--- NOTE | 2023-11-30 09:01 | W.PN.HOSP.TC ---
Today's Communication/Plan
-
Continue current management. Plan for heart surgery tomorrow
Assessment / Plan
Assessment / Plan
Gen: NAD, AAOx3.
Eyes: EOMI, PERRLA, no scleral icterus.
Neck: supple.
CV: remains irreg/irreg, +S1/S2, no m/r/g.
Resp: mild wheezes
Abd: +BS, soft, NT, ND
Skin: No rashes.
Neuro: continues to remain CN 2-12 intact, non-focal.
Psych: Normal mood and affect.
A/P:
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
-Plan for CABG along with AVR and probable mitral valve replacement along with MAZE procedure this coming Thursday 11/30.
-Holding Eliquis, lisinopril, and Farxiga.
-Follow-up cultures, so far no growth
-Appreciated CT surgery input
Vegetations on mitral valve-concerns for infective endocarditis versus mitral valve chordal rupture:
-MATTHIAS shows possible vegetation on the mitral valve
-Blood cultures taken
-Discussed with cardiology today on 11/27
-Requested ID consultation and input appreciated
-Hold off on antibiotic, patient looks nontoxic and remains afebrile.
RHC/LHC 11/22/23:
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
2: Severe aortic stenosis in the setting of low cardiac output.
3: Markedly elevated pulmonary pressures in the setting of low cardiac output with elevated left ventricular filling pressures.
Echo: �Normal left ventricular wall thickness. Normal left ventricular chamber size.
�Mildly reduced left ventricular systolic function. Left ventricular ejection
�fraction is 35-40% by Arreguin's method. 30% by volumetric assessment.� Global
�hypokinesis.
�Normal right ventricular size. Reduced right ventricular systolic function.
�Severely enlarged left atrium
�Moderately enlarged right atrium
�Mild mitral stenosis with peak and mean gradients of 10 and 4 mmHg.�
�Moderate eccentric mitral regurgitation
�Severe aortic stenosis. Peak/mean gradients across the aortic valve are 56/35
�mmHg.� Using an LVOT diameter of 1.9 cm, the HOMERO = .75cm2.� No aortic
�regurgitation is seen.
�Mild pulmonic regurgitation.
Acute on chronic HFrEF:
-Patient transferred to the hospital service few days ago.
-echo above, notable for EF 30%, global hypokinesis, severe , mod MR, mild MS
-cont Lasix 60mg BID but changed to oral.
-daily wts, I/Os
-echo above
-cont BB/Aldactone
DM2:
-poorly controlled with a1c 9.2%
-cont Levemir/premeal Novolog/Farxiga
-cont SSI/accuchecks
-diabetes GRIEVANCE MANAGER following
Permanent Afib with RVR:
-cont BB (higher than home dose)/Eliquis/Amio
-was on cardizem gtt, now off
-cardiology following
-MATTHIAS 11/27/23
Productive cough:
-CXR: Minor left basilar opacification which could represent subsegmental atelectasis and/or pneumonia.
-procal < 0.05
-no documented fever this admission
-No leukocytosis
-no evidence of bacterial PNA at this time
-cont incentive spirometer
Other problems:
Gout
Obesity due to excess calories: Encourage wt loss. Affects all aspects of care.
CAD, severe , mod MR: 2V disease as per cath 11/22/23. Cont BB/statin. CT surgery following.
HLD: cont statin
GERD: Cont PPI
FULL
Anticipated Discharge: > 48 hours
Subjective/Interval History
-
Date of Service: November 30, 2023
Patient denies any chest pain or shortness of breath.
Objective Data
-
Labs:
Laboratory Results
11/30/23 11/30/23
04:35 05:04
WBC 8.2
Hgb 13.4
Hct 41.0
Plt Count 255 D
PT 16.3 H
INR 1.30
APTT 83.0 H
HCO3 25.2
Sodium 133 L
Potassium 5.1
Chloride 100
Carbon Dioxide 24
BUN 52 H
Creatinine 0.9
Glucose 143 H
Calcium 9.8
Total Bilirubin 1.2
AST 48 H
ALT 32
Alkaline Phosphatase 123
Vital Signs:
Vital Signs
Temp Pulse Resp BP Pulse Ox
97.2 F 73 20 118/75 99
11/30/23 07:22 11/30/23 07:24 11/30/23 07:22 11/30/23 07:24 11/30/23 07:22
I&O
11/29/23 11/30/23 12/01/23
06:59 06:59 06:59
Intake Total 38 / 38 420 / 420
Output Total 1100 / 1100 2100 / 2100
Balance -1062 / -1062 -1680 / -1680
Review of Systems
-
All other systems: Reviewed and negative
[2023-11-30] MEDS: NOVOLOG FLEXPEN-LOW RESISTANCE SC (09:18)
[2023-11-30] MEDS: PACERONE 200 MG PO ×3 (09:41→22:52)
[2023-11-30] MEDS: LASIX 60 MG PO ×2 (09:42→16:27)
[2023-11-30] MEDS: TOPROL XL 100 MG PO ×2 (09:42→19:36)
[2023-11-30] MEDS: MAGNESIUM OXIDE 500 MG PO (09:42)
[2023-11-30] MEDS: PROTONIX 40 MG PO (09:42)
[2023-11-30] MEDS: NOVOLOG FLEXPEN 4 UNITS SC ×2 (09:49→13:06)
--- NOTE | 2023-11-30 10:01 | PTCARENOTE ---
Rec'd pt this shift awake and alert in bed. Pt OOB up in chair for breakfast. Heparin infusing at 1150 units/hr. Afib on monitor. Pt denies pain, denies sob. AM meds given. See worklist for VS/I and O and assessments.
--- NOTE | 2023-11-30 11:04 | PN.DE.MGMTRT ---
Insulin Management
- -
11/30/2023 Diabetes Management Follow up
Patient seen this morning, A/O x3, resting in bed, pleasant, offers no complaints. Awaiting CT surgery on Monday.
Glucose stable, premeal range 107 to 183. Pre dinner novolog was increased to 6 units 11/27, HS glucose improved, 175. Diet from 1800 to 1600 calories yesterday. Patient for OR tomorrow.
Diabetes History
- -
Type of Diabetes: 2
Pre-Admission Diabetes Regimen
11/30/23
04:35
Creatinine 0.9
Lab Results
Hemoglobin A1c 9.2 % (4.0-5.6) H 11/23/23 02:16
Insulin Pump Settings
IP Diabetes Regimen
11/29/23 11/29/23 11/29/23
12:15 17:36 21:41
Glucose
POC Glucose 124 H 183 H 175 H
11/30/23 11/30/23
04:35 08:37
Glucose 143 H
POC Glucose 122 H
Meal type: Breakfast
Meal type: Dinner
Amount consumed: 100%
Patient Education
[2023-11-30] MEDS: TYLENOL 650 MG PO (12:04)
[2023-11-30 12:40] LABS: Glucose - Point of Care 193 mg/dl (70-99)
[2023-11-30] MEDS: NOVOLOG FLEXPEN-LOW RESISTANCE 1 UNITS SC ×2 (13:06→18:04)
--- NOTE | 2023-11-30 13:35 | CM ---
Chart reviewed. Patient is going for a CABG/AVR/MVR on 12/01/2023. Patient is independent of ADLS, lives alone in a [address], [facility], ambulates with a SPC and rolling walker. Patient is current with [facility]. Patient would prefer to go home
when medically stable for DC but if she needs to go to rehab she prefers [place] or [facility] a patient at [facility] in the past. Plan is for the patient to return home with CT Transitional RN vs Rehab. CM to follow
[2023-11-30 14:49] LABS: Rheumatoid Agglutinin Less Than 10 IU (<10 IU)
--- NOTE | 2023-11-30 15:14 | W.CVOR.SURPR ---
CVOR Surgeon Immed Pre Op
-
I have examined this patient prior to performance of the scheduled procedure.
The patient's condition is unchanged from the time of the dictated/written History and
Physical and the patient is able to undergo the scheduled procedure.
I met with Mrs Martinez at bedside again today. No questions. Tells me she's ready to go.
Plan for AVR + MVrR (likely replacement given the level of calcification of her valve, leaflets, and subvalvular apparatus), CABG x 2 (JIMENES-LAD - possibly free JIMENES given the severe LSC stenosis, and RSVG-OM), MAZE, and Clip.
[2023-11-30] MEDS: HEPARIN 25000 UNITS/250 ML IV (16:38)
[2023-11-30] MEDS: DESENEX/MITRAZOL/ZEASORB TOPICAL (16:48)
[2023-11-30] MEDS: LIPITOR 40 MG PO (17:23)
[2023-11-30] MEDS: CLARITIN 10 MG PO (17:23)
[2023-11-30] MEDS: ALDACTONE 25 MG PO (17:23)
--- NOTE | 2023-11-30 17:36 | W.PN.ID1 ---
Date of Service
Date of Service: November 30, 2023
Today's Communication
- if valves resected then please send for culture
Assessment / Plan
Assessment for Possible Endocarditis - possible vegetation on MATTHIAS
history of uterine cancer s/p HERIBERTO, no chemo/XRT
- has been afebrile over a week here
- blood cultures remain negative
- NADIYA detected - titer pending; low titers are common and would not be concerning
- RF negative
- suspicion for endocarditis/culture negative endocarditis is low
- 1 Major criteria thus far
- 0 Minor criteria thus far
- still pending:
-NADIYA titer
-blood cultures x3 in progress - no growth to date
- if valves resected then please send for culture
- would not start empiric antibiotics at this time, follow cultures
Chief Complaint
-: Other (rule out endocarditis)
Subjective / Review of Systems
afebrile
bp stable
no complaints
Vital Signs / Physical Exam
Vital Signs
Vital Signs
Temp Pulse Resp BP Pulse Ox
97.4 F 79 20 127/77 98
11/30/23 15:58 11/30/23 17:23 11/30/23 15:58 11/30/23 17:23 11/30/23 15:58
Physical Exam
Constitutional: No Acute Distress
Cardiovascular: Regular Rate and S1/S2; Negative Murmur or Rub
Pulmonary: Clear and Symmetric; Negative Wheezes or Rales
Gastrointestinal: Soft, Non Tender, Non Distended and Normal Bowel Sounds
Skin: Warm and Dry; Negative Rash or Jaundice
Objective Data
Lab Data
Lab Results
11/30/23 04:35
11/30/23 04:35
ESR 29 mm/hour (0-20) H 11/28/23 05:07
PT 16.3 Sec (11.4-14.6) H 11/30/23 04:35
INR 1.30 11/30/23 04:35
APTT 83.0 Sec (23.4-35.0) H 11/30/23 04:35
Estimated Creat Clear 52 ml/min 11/30/23 04:35
Total Bilirubin 1.2 mg/dl (0.2-1.3) 11/30/23 04:35
AST 48 U/L (14-36) H 11/30/23 04:35
ALT 32 U/L (0-35) 11/30/23 04:35
Alkaline Phosphatase 123 U/L (38-126) 11/30/23 04:35
C-Reactive Protein 15.40 mg/L (0.0-10.00) H 11/28/23 05:07
Most recent labs reviewed.
Micro Results:
11/27/23 14:47 Blood Culture - Preliminary
Blood/Venous No Growth in 72 hours- Final report to follow
11/27/23 12:17 Blood Culture - Preliminary
Blood/Venous No Growth in 72 hours- Final report to follow
11/28/23 05:06 Blood Culture - Preliminary
Blood/Venous No Growth in 48 hours- Final report to follow
11/28/23 08:51 Legionella Urinary Antigen - Final
Urine Negative for Legionella pneumophila Serogroup 1 antigen.
A negative result does not rule out the possiblity of
Legionella infection due to other serogroups or species of
Legionella. Clinical correlation is recommended.
11/23/23 23:25 Respiratory Culture - Final
Tracheal Aspirate Usual Respiratory Rosalie
Gram Stain - Final
11/22/23 20:09 Influenza Types A & B (YUMIKO) - Final
Nasal Swab Negative for Influenza A & B, NAAT
Negative results must be combined with clinical observations
and patient history.
Nucleic Acid Amplification test (NAAT)performed on the
[employer] platform.
[2023-11-30 18:04] LABS: Glucose - Point of Care 199 mg/dl (70-99)
[2023-11-30] MEDS: NOVOLOG FLEXPEN 6 UNITS SC (18:04)
--- NOTE | 2023-11-30 18:21 | PTCARENOTE ---
Pt ambulating in room and in hallway with rolling walker. Pt remains on Heparin drip at 1150 units/hr. Pt denies pain, denies sob.
[2023-11-30] MEDS: DESENEX/MITRAZOL/ZEASORB 1 APPLIC TOPICAL (19:37)
[2023-11-30 22:06] LABS: Glucose - Point of Care 281 mg/dl (70-99)
[2023-11-30] MEDS: LEVEMIR 0.119999999999999996 UNITS SC (22:52)
--- NOTE | 2023-11-30 23:56 | PTCARENOTE ---
Received pt at handoff. AOX3. Tele- Afib. Assessment noted as documented. Heparin gtt infusing at 1150 units/hr. Pt educated on pre-op for CVOR tomorrow. Aware of NPO status. Pt clipped and 4% CHG bed bath completed. Currently resting in bed; call
callum w/in reach.
[2023-12-01] VITALS (12 sets, daily range): BP systolic 87–139; BP diastolic 51–68; BMI 32.5
[2023-12-01] MEDS: MAGNESIUM OXIDE 500 MG PO (05:51)
[2023-12-01] MEDS: PROTONIX 40 MG PO (05:51)
[2023-12-01] MEDS: BACTROBAN 2% OINTMENT 1 APPLIC NASAL ×2 (05:57→19:56)
[2023-12-01 06:12] LABS: Glucose - Point of Care 157 mg/dl (70-99)
--- NOTE | 2023-12-01 06:24 | PTCARENOTE ---
CVOR prep completed. Cleansed w/ CHG soap and wipes. New gown and changed linens. L arm BP 96/54; R arm 97/68. Lopressor 25mg and Toprol XL 100mg held per Yrn OLIVAS. Family at bedside.
[2023-12-01 07:17] LABS: ACT+ - POC 126 Seconds (82-134)
[2023-12-01 07:20] LABS: B.E. - POC -1.3 mmol/L; Glucose - POC 148 mg/dl (65-99); HCO3 - POC 24 mmol/L (21-29); Hematocrit - POC 44 % PCV (37-47); Hemodilution- POC Yes; Hemoglobin Calculated - POC 14.9; Ionized Calcium - POC 1.23 mmol/L (1.12-1.27); PCO2 - POC 39 mmHg (35-45); PO2 - POC 376 mmHg (80-100); Potassium - POC 4.1 mmol/L (3.6-5.0); Sodium - POC 138 mmol/L (135-145); pH - POC 7.39 (7.35-7.45)
--- NOTE | 2023-12-01 07:24 | PN.DE.MGMTRT ---
Insulin Management
- -
12/01/2023: Diabetes Management F/U:
Patient NPO for CT surgery today. Pt received Levemir 12 units @ HS last night, FBG 157 .
Plan for critical care glycemic protocol x48 hrs post-op.
Will followup on Monday.
Diabetes History
- -
Type of Diabetes: 2 requiring insulin
Pre-Admission Diabetes Regimen
Lab Results
Hemoglobin A1c 9.2 % (4.0-5.6) H 11/23/23 02:16
Insulin Pump Settings
IP Diabetes Regimen
11/30/23 11/30/23 11/30/23
08:37 12:38 18:03
POC Glucose 122 H 193 H 199 H
11/30/23 12/01/23
22:03 06:10
POC Glucose 281 H 157 H
Meal type: Dinner
Meal type: Breakfast
Amount consumed: 100%
Patient Education
[2023-12-01 07:25] LABS: ANA, HEp-2, IgG Detected (<1:80)
[2023-12-01 07:34] LABS: ANA Pattern Centromere
[2023-12-01] MEDS: ANCEF 10 IV ×2 (08:00→13:00)
--- NOTE | 2023-12-01 08:30 | W.PN.UPDATE ---
Update Note
Progress Note Update
patient transferred to CT surgery team. Will sign off- please call with questions.
[2023-12-01 08:45] LABS: B.E. - POC -1.8 mmol/L; Glucose - POC 149 mg/dl (65-99); HCO3 - POC 24 mmol/L (21-29); Hematocrit - POC 42 % PCV (37-47); Hemodilution- POC Yes; Hemoglobin Calculated - POC 14.3; Ionized Calcium - POC 1.23 mmol/L (1.12-1.27); O2 Saturation %Calculated-POC 70.6 5 (92-96); PCO2 - POC 44 mmHg (35-45); PO2 - POC 39 mmHg (80-100); Potassium - POC 3.6 mmol/L (3.6-5.0); Sodium - POC 136 mmol/L (135-145); pH - POC 7.35 (7.35-7.45)
[2023-12-01 08:58] LABS: Urine Albumin Negative (Neg - Trace); Urine Bilirubin Negative (Negative); Urine Character Clear (Clear); Urine Color Yellow; Urine Glucose Negative (Negative); Urine Ketone Negative (Negative); Urine Leukocyte Negative (Negative); Urine Nitrite Negative (Negative); Urine Occult Blood Negative (Negative); Urine Specific Gravity 1.015 (<1.030); Urine Urobilinogen Negative (Neg - 1+)
--- NOTE | 2023-12-01 09:06 | CM ---
Patient in OR today for CABG.
CM to follow for DC planning needs.
--- NOTE | 2023-12-01 09:08 | W.PN.ID1 ---
Date of Service
Date of Service: December 01, 2023
Today's Communication
follow up with rheumatology outpatient re: NADIYA
- spoke with lab - valves in formalin, no cultures sent from the OR, unable to add on as tissue in formalin, will follow up path
would not recommend antibiotics at this time
Assessment / Plan
Assessment for Possible Endocarditis - possible vegetation on MATTHIAS
history of uterine cancer s/p HERIBERTO, no chemo/XRT
- has been afebrile over a week here
- blood cultures remain negative
- NADIYA detected - titer 1:2560 - discussed with clothing consultant [employer] [address] Michelle - he prefers to see patient as outpatient in follow up; asked for complements and several additional antibodies that I believe already reflex from the NADIYA
- suspicion for bacterial endocarditis/culture negative endocarditis is low
- 1 Major criteria thus far
- spoke with lab - valves in formalin, no cultures sent from the OR, unable to add on as tissue in formalin, will follow up path
- 0 Minor criteria thus far
- RF now negative
- still pending: blood cultures x3 in progress - no growth to date
- would not start empiric antibiotics at this time, follow cultures
Chief Complaint
-: Other (rule out endocarditis)
Subjective / Review of Systems
afebrile
bp stable
tolerating current therapies
discussed with Dr Najera who felt valves appeared calcified without evidence of infection
Vital Signs / Physical Exam
Vital Signs
Vital Signs
Temp Pulse Resp BP Pulse Ox
97.7 F 80 20 96/54 97
12/01/23 05:19 12/01/23 05:58 12/01/23 05:19 12/01/23 05:58 12/01/23 05:19
Physical Exam
Constitutional: No Acute Distress and Other (intubated, alert)
Cardiovascular: Regular Rate and S1/S2; Negative Murmur or Rub
Pulmonary: Clear and Symmetric; Negative Wheezes or Rales
Gastrointestinal: Soft, Non Tender, Non Distended and Normal Bowel Sounds
Skin: Warm and Dry; Negative Rash or Jaundice
Neurological: Awake
Objective Data
Lab Data
Lab Results
11/30/23 04:35
11/30/23 04:35
ESR 29 mm/hour (0-20) H 11/28/23 05:07
PT 16.3 Sec (11.4-14.6) H 11/30/23 04:35
INR 1.30 11/30/23 04:35
APTT 83.0 Sec (23.4-35.0) H 11/30/23 04:35
Estimated Creat Clear 52 ml/min 11/30/23 04:35
Total Bilirubin 1.2 mg/dl (0.2-1.3) 11/30/23 04:35
AST 48 U/L (14-36) H 11/30/23 04:35
ALT 32 U/L (0-35) 11/30/23 04:35
Alkaline Phosphatase 123 U/L (38-126) 11/30/23 04:35
C-Reactive Protein 15.40 mg/L (0.0-10.00) H 11/28/23 05:07
Most recent labs reviewed.
Micro Results:
11/28/23 05:06 Blood Culture - Preliminary
Blood/Venous No Growth in 72 hours- Final report to follow
11/27/23 14:47 Blood Culture - Preliminary
Blood/Venous No Growth in 72 hours- Final report to follow
11/27/23 12:17 Blood Culture - Preliminary
Blood/Venous No Growth in 72 hours- Final report to follow
11/28/23 08:51 Legionella Urinary Antigen - Final
Urine Negative for Legionella pneumophila Serogroup 1 antigen.
A negative result does not rule out the possiblity of
Legionella infection due to other serogroups or species of
Legionella. Clinical correlation is recommended.
11/23/23 23:25 Respiratory Culture - Final
Tracheal Aspirate Usual Respiratory Rosalie
Gram Stain - Final
11/22/23 20:09 Influenza Types A & B (YUMIKO) - Final
Nasal Swab Negative for Influenza A & B, NAAT
Negative results must be combined with clinical observations
and patient history.
Nucleic Acid Amplification test (NAAT)performed on the
[employer] platform.
Care Review
Plan reviewed with: Physician (Dr Michelle - rheum, Dr Najera CT surgery)
[2023-12-01 09:24] LABS: ACT+ - POC 570 Seconds (82-134)
[2023-12-01 09:55] LABS: B.E. - POC 0.5 mmol/L; Glucose - POC 119 mg/dl (65-99); HCO3 - POC 24 mmol/L (21-29); Hematocrit - POC 32 % PCV (37-47); Hemodilution- POC Yes; Hemoglobin Calculated - POC 10.8; Ionized Calcium - POC 1.03 mmol/L (1.12-1.27); O2 Saturation %Calculated-POC 99.9 5 (92-96); PCO2 - POC 33 mmHg (35-45); PO2 - POC 268 mmHg (80-100); Potassium - POC 4.3 mmol/L (3.6-5.0); Sodium - POC 136 mmol/L (135-145); pH - POC 7.47 (7.35-7.45)
[2023-12-01 10:02] LABS: ACT+ - POC 694 Seconds (82-134)
[2023-12-01 10:26] LABS: B.E. - POC 1.6 mmol/L; Glucose - POC 125 mg/dl (65-99); HCO3 - POC 25 mmol/L (21-29); Hematocrit - POC 34 % PCV (37-47); Hemodilution- POC Yes; Hemoglobin Calculated - POC 11.6; Ionized Calcium - POC 1.04 mmol/L (1.12-1.27); O2 Saturation %Calculated-POC 99.9 5 (92-96); PCO2 - POC 35 mmHg (35-45); PO2 - POC 233 mmHg (80-100); Potassium - POC 4.8 mmol/L (3.6-5.0); Sodium - POC 137 mmol/L (135-145); pH - POC 7.47 (7.35-7.45)
[2023-12-01 10:30] LABS: ACT+ - POC 632 Seconds (82-134)
[2023-12-01 10:51] LABS: Glucose - POC 134 mg/dl (65-99); HCO3 - POC 25 mmol/L (21-29); Hematocrit - POC 32 % PCV (37-47); Hemodilution- POC Yes; Ionized Calcium - POC 1.09 mmol/L (1.12-1.27); O2 Saturation %Calculated-POC 99.7 5 (92-96); PCO2 - POC 37 mmHg (35-45); PO2 - POC 195 mmHg (80-100); Potassium - POC 4.4 mmol/L (3.6-5.0); Sodium - POC 135 mmol/L (135-145); pH - POC 7.44 (7.35-7.45)
[2023-12-01 10:55] LABS: ACT+ - POC 608 Seconds (82-134)
[2023-12-01 11:29] LABS: B.E. - POC 1.1 mmol/L; Glucose - POC 151 mg/dl (65-99); HCO3 - POC 25 mmol/L (21-29); Hematocrit - POC 33 % PCV (37-47); Hemodilution- POC Yes; Hemoglobin Calculated - POC 11.4; Ionized Calcium - POC 1.12 mmol/L (1.12-1.27); O2 Saturation %Calculated-POC 99.9 5 (92-96); PCO2 - POC 37 mmHg (35-45); PO2 - POC 302 mmHg (80-100); Potassium - POC 4.2 mmol/L (3.6-5.0); Sodium - POC 137 mmol/L (135-145); pH - POC 7.44 (7.35-7.45)
[2023-12-01 11:35] LABS: ACT+ - POC 594 Seconds (82-134)
[2023-12-01 12:02] LABS: B.E. - POC 0.7 mmol/L; Glucose - POC 128 mg/dl (65-99); HCO3 - POC 25 mmol/L (21-29); Hematocrit - POC 31 % PCV (37-47); Hemodilution- POC Yes; Hemoglobin Calculated - POC 10.7; Ionized Calcium - POC 1.13 mmol/L (1.12-1.27); O2 Saturation %Calculated-POC 99.9 5 (92-96); PCO2 - POC 38 mmHg (35-45); PO2 - POC 278 mmHg (80-100); Potassium - POC 3.6 mmol/L (3.6-5.0); Sodium - POC 138 mmol/L (135-145); pH - POC 7.43 (7.35-7.45)
[2023-12-01 12:04] LABS: ACT+ - POC 518 Seconds (82-134)
[2023-12-01 12:22] LABS: B.E. - POC -0.4 mmol/L; Glucose - POC 119 mg/dl (65-99); HCO3 - POC 24 mmol/L (21-29); Hematocrit - POC 31 % PCV (37-47); Hemodilution- POC Yes; Hemoglobin Calculated - POC 10.7; Ionized Calcium - POC 1.14 mmol/L (1.12-1.27); PCO2 - POC 38 mmHg (35-45); PO2 - POC 443 mmHg (80-100); Potassium - POC 3.9 mmol/L (3.6-5.0); Sodium - POC 139 mmol/L (135-145); pH - POC 7.41 (7.35-7.45)
[2023-12-01 12:26] LABS: ACT+ - POC 558 Seconds (82-134)
[2023-12-01] MEDS: NOVOLOG FLEXPEN-LOW RESISTANCE SC ×2 (12:59)
[2023-12-01] MEDS: MAGNESIUM OXIDE PO (13:00)
[2023-12-01] MEDS: DESENEX/MITRAZOL/ZEASORB TOPICAL (13:00)
[2023-12-01] MEDS: PROTONIX PO (13:00)
[2023-12-01] MEDS: PACERONE PO ×2 (13:00→16:13)
[2023-12-01] MEDS: TOPROL XL PO (13:00)
[2023-12-01] MEDS: NOVOLOG FLEXPEN SC ×3 (13:01→16:13)
[2023-12-01 13:12] LABS: ACT+ - POC 131 Seconds (82-134)
[2023-12-01 13:13] LABS: B.E. - POC -2.6 mmol/L; Glucose - POC 170 mg/dl (65-99); HCO3 - POC 22 mmol/L (21-29); Hematocrit - POC 33 % PCV (37-47); Hemodilution- POC Yes; Hemoglobin Calculated - POC 11.3; Ionized Calcium - POC 1.37 mmol/L (1.12-1.27); O2 Saturation %Calculated-POC 99.9 5 (92-96); PCO2 - POC 37 mmHg (35-45); PO2 - POC 320 mmHg (80-100); Potassium - POC 3.7 mmol/L (3.6-5.0); Sodium - POC 141 mmol/L (135-145); pH - POC 7.39 (7.35-7.45)
[2023-12-01 13:18] LABS: B.E. - POC -2.2 mmol/L; Glucose - POC 167 mg/dl (65-99); HCO3 - POC 23 mmol/L (21-29); Hematocrit - POC 33 % PCV (37-47); Hemodilution- POC Yes; Hemoglobin Calculated - POC 11.2; Ionized Calcium - POC 1.38 mmol/L (1.12-1.27); O2 Saturation %Calculated-POC 73.3 5 (92-96); PCO2 - POC 42 mmHg (35-45); PO2 - POC 41 mmHg (80-100); Potassium - POC 3.7 mmol/L (3.6-5.0); Sodium - POC 140 mmol/L (135-145); pH - POC 7.36 (7.35-7.45)
--- NOTE | 2023-12-01 14:05 | W.PN.CT.SURG ---
CT Surgery Operative Note
-
CARDIAC SURGERY OPERATIVE REPORT
Preoperative Diagnosis: Severe aortic valve stenosis, Severe mitral valve regurgitation with severe mitral annular calcification, new onset atrial fibrillation, and acute on chronic congestive heart failure with volume overload
Postoperative Diagnosis: Same
Procedure(s) Performed:
1. Standard sternotomy with aortic and bicaval cannulation
2. CABG x 2 (In situ JIMENES to LAD and Ao-RSVG-OM/LPL)
3. Surgical Aortic Valve Replacement (23mm Inspiris)
4. Chordal Sparing Mitral Valve Replacement (29mm Mitris) with bovine patch of the annulus at P1 into P2
5. Left atrial MAZE
6. Left atrial appendage occlusion (35mm Clip)
7. Placement temporary atrial and ventricular pacing wires
8. Transesophageal echocardiography
Date of Surgery: 12/01/23
Comorbidities:
1. Severe aortic valve stenosis
2. Severe mitral valve insufficiency secondary to degeneration with mixed pathology heavy calcification of the leaflets into the annulus, severe mitral annular calcification
3. Multivessel coronary disease
4. Morbidly obese with a BMI of greater than 30
5. Acute on chronic congestive heart failure with recent admission for volume overload, cardiac index on cath was 1.2, LVEDP was 28 mmHg, Wedge of 34mmHg, with a drop in EF to approximately 40% preoperatively
6. Hypertension
7. Hyperlipidemia
8. Diabetes mellitus, type II
9. New onset atrial fibrillation with rapid ventricular response on anticoagulation
10. Moderate pulmonary hypertension with PA systolics in the 50s to 60s
Attending Surgeon: Guido Najera MD, MS
Assistants: Shanelle Haile PA-C (present and necessary to assistant professor of english, retraction, suction, exposure, suture management, and wound closure under my direction)
Anesthesiology: Dean Tate MD and Lucinda Hernandez CRNA
Scrub and Circulating RNs: Daphne Sunshine, RN, Corinne Santiago, RN
Facilities Flight Check Pilot: Alma Oropeza CCP
Anesthesia: GETA
EBL: per perfusion records
Products: None
CPB Time: 201 minutes
Aortic Cross Clamp Time: 171 minutes
Indication(s) for Procedures: This is a 73-year-old female who presents to the hospital in respiratory failure and volume overload and was found to have atrial fibrillation with rapid ventricular response. She underwent left heart cath and right
heart cath and was found to have multivessel coronary artery disease and severely elevated filling pressures with a wedge in the 30s and LVEDP in the high 20s. She was aggressively diuresed and lost a significant amount of water weight. She
underwent further investigation of her mitral valve and aortic valve under transesophageal echocardiography was found to have severe mitral valve insufficiency secondary to ruptured chordae of A2 leaflet however there was heavy mitral annular
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 Due to her multivalve disease and relatively new onset atrial relation and coronary artery disease, multidisciplinary team discussion came to the
ultimate conclusion that surgery was likely her best option. I had a long discussion with the patient as well as her son and went over the risk and benefits. Shared decision making was to pursue high risk surgical intervention.
Aortic Valve Description: Trileaflet, heavily calcified leaflets into the annulus particularly at the noncoronary cusp. The left and right coronary ostium in their normal anatomic positions.
Mitral Valve Description: Heavily calcified aorta mitral curtain with infiltration of the calcium through the leaflet. Dense mitral annular calcification towards the anterior lateral trigone extending down towards the midportion of P2. The
leaflets were abnormal and thickened with shortening of the cords as well as calcifications of the papillary muscle heads. The valve was not salvageable or good for repair from an durability standpoint.
Findings: Her left ventricular ejection fraction preoperatively was approximately 40 to 45% with no significant regional wall motion abnormalities. She had severe aortic valve stenosis and severe mitral valve insufficiency. There is also heavy
dense calcification along the aorta mitral curtain extending down towards the P2 segment of the annulus. Following surgery EF improved to 55%, she was on very low-dose epinephrine at that time. She regained sinus rhythm after short period of
ventricular pacing. Coronary bypass grafting x 2 was performed with in situ JIMENES to LAD. Despite her severe left subclavian stenosis, there was torrential flow down her CHELSEY and so this was left in situ. The vein graft was anastomosed from aorta
to the OM/left posterolateral branch. This had excellent flow with test dosing of antegrade cardioplegia with approximately 60 cc/min of flow at a pressure of 80. The LAD had excellent visual flow and pinking up of the LAD territory. Her mitral
valve was replaced with a chordal sparing method using a total of 16 pledgeted 2 Ethibond sutures in an inverted fashion from LV through annulus through sewing cuff. Of note I had to debride some of the calcium along the mitral annulus in order to
facilitate passage of sutures. The P1 segment along the annulus down to the P2 segment was heavily debrided and then reinforced with bovine pericardium. Aortic valve was replaced with a total of 14 nonpledgeted 2 Ethibond sutures. All annular
sutures were secured with core knots. After coming off of cardiopulmonary bypass there was no paravalvular leak of either the aortic or mitral valve. The mean gradients across the aortic and mitral valve were 4 mmHg and 1 mmHg, respectively. Left
ventricular ejection fraction did improve to approximate 55%. She did not require any blood products. Her left atrial appendage was verified to be free of any thrombus or debris preoperatively and was totally occlusive with a 35 mm clip. A full
left atrial maze was performed.
Ablation Lines:
1. Box lesion to posterior LA wall
2. TANJA lesion + TANJA Exclusion
3. Coronary sinus lesion
4. Posterior mitral annular line toward P2/P3
Specimen(s): Aortic valve leaflets.
Prosthesis:
1. 29mm RIVERA MITRIS, SN [id number]
2. TANJA Clip, 35mm, SN [id number]
3. 23mm RIVERA INSPIRIS, SN [id number]
4. Bovine Pericardium, SN [id number]
Description of Procedure: The patient was taken to the operating room. Their identity and procedure to be performed were verified and they were positioned supine on the operating table. Induction via general anesthesia with endotracheal intubation
was performed and central venous access and arterial monitoring were inserted. A preoperative transesophageal echocardiogram was performed to assess cardiac function and valvular function. The patient was then prepped and draped from chin to feet in
a sterile fashion. A preoperative time-out was performed with all members of the team present. A midline chest incision was performed along with median sternotomy. Concomitantly the right lower extremity was used for saphenous vein harvest. 5000
units of heparin was given at this time. A Rultract was used to elevate the left hemisternum. The left internal mammary was harvested in a skeletonized fashion. Transection of the distal end of the mammary revealed excellent flow. It was then
wrapped in a papaverine soaked blanket and then pushed back into the left hemithorax. The Rultract retractor was then replaced with a median sternotomy retractor. The innominate vein was isolated. Full heparinization was given (a total of 45,000
units). We created a pericardial well. The aortic cannulation site was chosen where it was soft, pliable, and free of calcium. Cannulation was performed with an arterial cannula in the ascending aorta, angled metal tip cannular in the superior vena
cava and straight bendable cannula in the inferior vena cava. The arterial cannula line had an appropriate bounce and correlating pressures. Next, a root vent/antegrade cannula was inserted into the ascending aorta. The ACT was confirmed to be over
400 and retrograde autologous priming was performed before commencing cardiopulmonary bypass. The pulmonary artery was away from the aorta to facilitate a clamp site. Sondergaard�s groove was developed after creating the oblique sinus.
The SVC was then from the right pulmonary artery. The encompass clamp was then placed through the oblique sinus underneath the SVC and across the transverse sinus. 3 successful pairs of ablation were performed. The distal targets were
then marked with a pen. The aortic cross-clamp was placed after decreasing the flow on the bypass and mean arterial pressure. A total of 1.2L initial dose of antegrade Del-Nido cardioplegia solution was given and planned for re-dosing every 75
minutes as necessary. There was rapid electro-mechanical arrest of the heart at 300 cc of cardioplegia. The left ventricle was observed for distention on echocardiogram and manual palpation. Cold slush was placed into a lap on the RV and we
systemically cooled to 34 degrees centigrade.
The heart was then retracted medially towards the surgeon side. The LPL/obtuse marginal branch of the circumflex was identified. This was prepped using a [place] blade and a small coronary arteriotomy was created. End-to-side anastomosis was
performed with 7-0 Prolene in a running fashion with the vein graft. Test dosing of antegrade cardioplegia demonstrated excellent flow and good hemostasis. Next the CHELSEY graft was retrieved from the left chest. A disease-free portion of the
midportion of the LAD was identified and prepared in a similar fashion. End-to-side anastomosis was created with 7-0 Prolene in a running fashion. Temporary release of the bulldog on the CHELSEY demonstrated excellent visual flow in the LAD territory.
The bulldog was then replaced in the mammary. Next, the left atrial pended was ligated with a 35 mm clip flush the base.
Carbon dioxide was used to flood the field. We manually identified the location of the right coronary take off. An aortotomy was made approximately 2cm above the sinotubular junction. The location of both left and right coronary vessels were
visualized in the root. The leaflets were excised and sent for pathological assessment. The annulus was debrided of any calcium being mindful of the annulus and membranous septum. The root and left ventricular outflow tract were thoroughly irrigated
to remove any debris. Next, the mitral valve was accessed via the intra-atrial groove followed by valve analysis. Additional cryoablation was performed here with the left atrium exposed. The mitral valve was replaced as described above. The left
ventricular vent was repositioned across the mitral valve into the left ventricular and the left atrium was closed with a 3-0 prolene.
I turned my attention back toward the root and gave additional ostial cardioplegia. A total of 14 non-pledgeted 2-0 ethibond inverted annular sutures were placed [id number] circumferentially. These were brought through the sewing cuff of the
prosthetic valve which as then parachuted into place. The left and right coronary ostia were visualized and were unobstructed by the valve. A Cor-Knot device was used to secure the annular sutures. The valve was inspected and was well seated. The
aortotomy was approximated with 4-0 prolene in two layers. The aorta was then reinforced with a flexible sealant. A small aortotomy was created enlarged with a 4.0 mm shunt. The proximal end of the vein graft was anastomosed with 6-0 Prolene in a
running fashion.
De-airing maneuvers were performed and temporary atrial and ventricular pacing wires were placed at the SVC/RA junction and base of the right ventricle, respectively. The patient was placed in a Trendelenburg position and flows on bypass were
lowered. The aortic cross clamp was removed and flows were slowly brought back up. The left atrial suture line was hemostatic. Transesophageal echocardiography revealed no evidence of paravalvular leak and ventricular function was normal. The AV
prosthesis was well seated without PVL or AI as was the mitral valve prosthesis. Once de-airing was satisfactory the left ventricular and root vents were removed. After verifying acceptable parameters, we initiated weaning from cardiopulmonary
bypass. Once we were off cardiopulmonary bypass, the venous cannulas was clamped and removed sequentially. A test dose of protamine was administered and the patient was monitored for any adverse reaction before resuming protamine. Once half of the
protamine dose was delivered, pump suckers were turned off and the systolic blood pressure was lowered for aortic decannulation. The aortic cannula was removed and purse strings were tied down. All cannulation sites were oversewn with a 4-0 prolene.
The left atrial suture line was inspected and hemostasis was confirmed. Mediastinal hemostasis was obtained. Two #24 Michael drains were placed within the pericardium and 19 Syrian Michael was placed into each hemithorax. The sternum was approximated
with 4 #7 single and 3 #8 double stainless steel wires. Fascia was approximated with #1 vicryl suture. The subcutaneous, dermis and epidermis were closed in layers in a running fashion. A total of 5 retention vertical mattress sutures were placed
using 4-0 Prolene the midline incision. The skin wound was cleansed and dressed.
All instrument, sponge, and needle counts were confirmed to be correct x 2 at the end of the operation. The patient was transferred to the cardiac intensive care unit in critical but stable condition.
I, Dr. Guido Najera, was present, scrubbed for, and performed all critical elements of this procedure.
Guido Najera MD, MS
Cardiothoracic Surgeon
[facility]
This dictation was created using the qcue dictation system. Please excuse any grammatical, typographical, or 'sound alike' errors
[2023-12-01 14:15] LABS: Glucose - Point of Care 203 mg/dl (70-99)
--- NOTE | 2023-12-01 14:17 | W.PN.UPDATE ---
Update Note
Progress Note Update
73 year old female admitted 3/ after cardiac cath for 2 vessel CAD, AF and decompensated HF. TTE reported severe aortic stenosis, mild mitral stenosis with moderate mitral regurgitation and EF 35- 40%.
IV fluids: 1500
U.O.:� 450
UF: N/A
Blood:� N/A
Wires:� 2a & 2V
Inotropes:� Epi @ 2
Pressors:� Levo @ 1
Sedatives:� Precedex @ 0.5
�
NEURO: sedated on Precedex, pupils +3mm B/L
RESP: #8OT @20cm> 600/60%/14/5. Lungs clear B/L. 2 mediastinal (0cc on arrival) and R/L pleural (15cc on arrival) chest tubes to -20cm suction. Sanguineous drainage
CV: RRR +S1, S2, no S3, no�rub, no murmur. Dermabond to median sternotomy. RIJ w/[place] locked @ 48cm. PA 44/21; CVP 11; C.O 2.59/CI 1.5; MVO2 65%
ABD: obese w/pannus, round, soft, no BS
EXT: no edema, +1/4 DP pulses B/L, no femoral bruit, RLE PHILIP wrap intact; left radial A-line intact
: Balderas with clear yellow urine
�
A/P: POD #0 s/p AVR #32mm Inspiris, MVR #29mm MItris, Cryo and Encompass MAZE, TANJA #35mm Atricure clip, CABG x 2 JIMENES-LAD; SVG-OM
MATTHIAS: EF�55%
- wean and extubate
- will need instruction regarding antibiotic prophylaxis for dental and invasive procedures
# CAD
- will require ASA/Plavix, statin, beta-amrit
# Atrial fibrillation
- ASA/Plavix, then ASA/Eliquis on DC
�
# acute surgical blood loss anemia-expected
- trend CBC
�
# T2DM (A1C 9.3)
- insulin infusion x 48h
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
�
# Hyperlipidemia
- resume�simvastatin
# GERD
-will continue Protonix as requires Eliquis
# DC plan
- will need PT/OT evaluation
[2023-12-01 14:21] LABS: B.E. -1.9 mmol/L; HCO3 21.9 mmol/L (21-28); Ionized Calcium 1.25 mMOL/L (1.15-1.33); O2 Saturation % 99.2 % (94-98); PCO2 33 mmHg (32-35); PO2 139 mmHg (83-108); Sodium 136 mMOL/L (136-145); pH 7.43 (7.35-7.45)
[2023-12-01 14:24] LABS: Hematocrit 29.6 % (37.0-47.0); Hemoglobin 10.1 g/dL (12.0-16.0); Platelet Count 154 10^3/uL (130-400)
--- NOTE | 2023-12-01 14:28 | PTCARENOTE ---
PAtient received from [facility]. Patient is unresponsive s/p anesthesia. RASS -4. Unable to assess orientation and muscle strength grading. Pupils 3mm sluggish. NSR with 1st degree heart block, RBB and frequent monomorphic and bigeminy PVCs. HR 60s. A&V
wires received with pacer box turned off. A&V wires checked separately and together. New pacer box settings: AAI. HR 40, mA 6, sensitivity 0.4. V wire connected to pacer box but not on. Distant heart tones. R radial a-line maintained with BP
110s-130s/50s-60s. RIJ cordis and swan maintained at 49cm. PA pressures 40s/20s. CVP 8-12. CO 2.59, CI 1.50, SVR 1852. Per anesthesia and Dr. Najera, the CO/CI are not accurate. SVO2 63.3 so they are okay with that. Levo gtt received at 1mcg/min. Epi
gtt received at 2mcgs/min. Cardene gtt received on standby. Precedex gtt received at 0.5mcgs/kg/hr. Cordis and VIP KVOs adjusted per protocol. Insulin gtt received at 1 unit/hr. Palpable pulses. No edema. PIV maintained. 8.0 ETT, 20 at the lip.
Oxygen saturation 96%. Ventilator settings: SIMV. RR 16, TV 500, PEEP 5, FiO2 60%. Upon auscultation, bilateral anterior breath sounds are diminished and slightly coarse. CTx4 maintained to -20cm wall suction. Bilateral pleural CTs have minimal red
drainage. MS CTx2 have minimal red drainage. No air leaks or tidaling noted. Mouth care provided. Abdomen round, obese. Hypoactive BS. Balderas maintained with adequate yellow UOP. Balderas care provided. Complete bedrest s/p CVOR. Assist x2 to
turn/reposition. Sternal incision is approximated with surgical adhesive and retention sutures and open to air. R groin site is ecchymotic from cath. R upper thigh site is approximated with surgical adhesive and open to air. R knee incision is
approximated with surgical adhesive and open to air. Anurag bandage taken off RLE r/t mottled feet - could palpate a pulse but once the anurag bandage was taken off, the color returned. Will continue to monitor.
[2023-12-01 14:30] LABS: Mixed Venous O2 Saturation 63.3 %
[2023-12-01] MEDS: NEURONTIN PO ×2 (14:35→16:13)
[2023-12-01] MEDS: TYLENOL PO (14:36)
[2023-12-01] MEDS: NSS 500 IV (14:36)
--- NOTE | 2023-12-01 14:36 | CON.INTV ---
Consultation
Consultation Request
Date/Time Consultation Requested: 12/01/2023
Date/Time Consultation Performed: 12/01/2023
Requesting Provider: Dr. Najera
Performing Provider: Dr. Vance Blanco
Reason for Consultation: Postoperative ICU care
Medical History
-
History of Present Illness:
73-year-old man with past medical history significant for heart failure with reduced ejection fraction-severe AAS and MR, atrial fibrillation as well as coronary artery disease.
Past Medical History
Past Medical History: Other (See assessment and plan section)
Family History
Family History: Unable to Obtain
Allergies / Home Medications
Allergies
Allergy/AdvReac Type Severity Reaction Status Date / Time
hylan G-F 20 Allergy Swelling Verified 11/22/23 08:15
Home Medications
Medication Instructions Recorded Confirmed Last Taken Type
acetaminophen 325 mg capsule 325 mg PO ONCE 11/22/23 11/22/23 11/21/23 20:00 History
(Tylenol) 650
apixaban 5 mg tablet (Eliquis) 5 mg PO BID 11/22/23 11/22/23 11/21/23 10:00 History
5 MG
bumetanide 2 mg tablet 2 mg PO DAILY 11/22/23 11/22/23 11/21/23 08:00 History
2 MG
coQ10 (ubiquinol) 100 mg capsule 100 mg PO DAILY 11/22/23 11/22/23 11/21/23 09:00 History
100 MG
glipizide 10 mg tablet 10 mg PO BID 11/22/23 11/22/23 11/21/23 20:00 History
10 MG
hydrocodone 5 mg-acetaminophen 325 1 tab PO Q6HPRN PRN PAIN 11/22/23 11/22/23 Unknown History
mg tablet
insulin detemir U-100 100 unit/mL 10 unit SC HS 11/22/23 11/22/23 11/21/23 21:30 History
(3 mL) subcutaneous pen (Levemir 5 UNITS
FlexPen)
loratadine 10 mg tablet (Claritin) 10 mg PO QPM 11/22/23 11/22/23 11/21/23 20:00 History
10 MG
meclizine 25 mg tablet 25 mg PO TIDPRN PRN dizzy 11/22/23 11/22/23 Unknown History
methocarbamol 500 mg tablet 500 mg PO TIDPRN PRN muscle spasm 11/22/23 11/22/23 Unknown History
metoprolol succinate 50 mg 75 mg PO BID 11/22/23 11/22/23 11/22/23 05:00 History
tablet,extended release 24 hr 75 MG
multivitamin 1 tab PO DAILY 11/22/23 11/22/23 11/21/23 09:00 History
1 TAB
omeprazole 20 mg tablet,delayed 20 mg PO DAILY 11/22/23 11/22/23 11/22/23 05:00 History
release 20 MG
oxybutynin chloride 10 mg 10 mg PO DAILY 11/22/23 11/22/23 Unknown History
tablet,extended release 24 hr
simvastatin 40 mg tablet 40 mg PO QPM 11/22/23 11/22/23 11/21/23 20:00 History
40 MG
spironolactone 25 mg tablet 25 mg PO QPM 11/22/23 11/22/23 11/21/23 20:00 History
25 MG
tramadol 50 mg tablet 50 mg PO TIDPRN PRN PAIN 11/22/23 11/22/23 Unknown History
zolpidem 10 mg tablet (Ambien) 10 mg PO HSPRN PRN SLEEP 11/22/23 11/22/23 11/21/23 21:00 History
Review of Systems
-
Unable to Obtain full review of systems at this time due to: Patient Intubation
Vitals / Labs / Diagnostic Testing
Vital Signs
Temp Pulse Resp BP Pulse Ox
97.5 F 80 16 96/54 99
12/01/23 14:00 12/01/23 05:58 12/01/23 14:00 12/01/23 05:58 12/01/23 14:00
Laboratory Results
12/01/23
14:10
pH 7.43
pCO2 33
pO2 139 H
HCO3 21.9
O2 Delivery Level Not Reportable
Microbiology
11/27/23 12:17 Blood/Venous Blood Culture - Preliminary
No Growth in 4 days- Final report to follow
11/28/23 05:06 Blood/Venous Blood Culture - Preliminary
No Growth in 72 hours- Final report to follow
11/27/23 14:47 Blood/Venous Blood Culture - Preliminary
No Growth in 72 hours- Final report to follow
Diagnostic Testing:
Physical Exam
-
HEENT: Normocephalic
Cardiovascular: S1/S2 and Rub
Respiratory: Clear and Non-Labored Respirations
GI: Soft and Non Distended
Neurology: Other (Sedated, waking up from anesthesia. Opening eyes spontaneously and to verbal stimuli.)
Skin: Warm
Assessment
-
Status post aortic valve and mitral valve replacement and coronary artery bypass, left maze procedure and left atrial appendage occlusion 12/01/2023-Dr. Najera
Postoperative mechanical ventilation
-
MATTHIAS reported possible vegetation of the mitral valve. Cardiology felt not a vegetation at this point
Blood cultures negative
Abnormal CT chest: Bibasilar infiltrates atelectasis versus pneumonia.
All cultures were negative. Procalcitonin negative.
No leukocytosis or fevers
-
Conditions present prior admission:
Cardiomyopathy with ejection fraction 35-40% on echocardiogram 11/23/2023
Atrial fibrillation
Two-vessel coronary artery disease by catheterization 11/2023
Severe aortic stenosis and moderate to severe mitral regurgitation
Hypertension
history of uterine cancer s/p HERIBERTO, no chemo/XRT
Hyperlipidemia
Type 2 diabetes
GERD
Gout
High-grade left subclavian stenosis and right carotic stenosis 50-69%
ECHO 11/23/23: EF 35 to 40%, global hypokinesis, severely enlarged LA, moderately enlarged RA, mild MS with peak/mean gradients of 10/4 mmHg, moderate eccentric MR, severe with peak/mean gradients 56/35 mmHg, HOMERO 0.75 cm�, no AR, mild SD.� New
reduction in EF compared to prior echo.
RHC/LHC 11/22/23:
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
2: Severe aortic stenosis in the setting of low cardiac output.
3: Markedly elevated pulmonary pressures in the setting of low cardiac output with elevated left ventricular filling pressures.
---------
Assessment and plan:
His doing well postop-currently on mechanical ventilation and appears comfortable.
ABG reviewed: Adequate oxygenation on ventilation
Continue SIMV mode with no change
Spontaneous breathing trial per protocol once sedation wears off.
Anemia noted-no evidence of acute bleeding
Follow H&H serially
Hemodynamics -currently requiring vasopressors
PA catheter in place, hemodynamics acceptable
Urinary output adequate
Follow renal function.
Continue to wean down vasopressors/inotropes as able.
Chest tube with no excessive drainage-no air leak.
Chest x-ray reviewed: With no pneumothorax or fluid collections. Low lung volumes.
Remain nothing by mouth
Head of the bed elevation
Glycemic control per protocol
Abnormal CT chest: No antibiotics received.
Recommend repeating CT chest in about 3 months from now to document improvement/resolution.
DVT prophylaxis when safe from the surgical perspective.
Critical care statement: A total of 32 minutes of critical care time was provided for this patient today. This includes management of unstable vital signs, evaluation of the patient at bedside, reviewing the patient's pertinent medical records
including ventilator settings, arterial blood gases, radiographs, microbiology, laboratory evaluations and discussion with primary team, critical care nursing, and respiratory therapy.
[2023-12-01 14:38] LABS: Blood Urea Nitrogen 46 mg/dl (7-17); Estimated Creatinine Clearance 59 ml/min; Glucose 181 mg/dl (70-99); INR 1.92; Magnesium 3.1 mg/dl (1.6-2.3); PT 21.8 Sec (11.4-14.6)
[2023-12-01 14:39] LABS: APTT 29.3 Sec (23.4-35.0)
[2023-12-01 14:59] LABS: Glucose - Point of Care 156 mg/dl (70-99)
[2023-12-01] MEDS: ALBUMIN 5% 250 IV ×3 (15:11→21:35)
--- NOTE | 2023-12-01 15:11 | W.PN.CARDCBS ---
Addendum entered and electronically signed by Matthew Miller MD 12/01/23 16:38:
I saw and examined the patient.
The Spray Maker's note was reviewed and I agree with the note.
Comment: Briefly, 73-year-old woman past medical history of ICM (EF 35-40%), severe and moderate to severe MR who underwent CABG x 2, SAVR and MVR earlier today
Remains intubated post-op in the CVICU
Pressor support with low dose epinephrine
Filling pressures reasonable by invasive hemodynamics
Maintaining NSR on tele
Warm and well perfused on exam
Agree with current cardiac meds
We will continue to follow
Original Note:
Today's Communication / Plan
-
continue post op care
follow EKG
Impression / Plan
-
Primary Care Physician: Dr. Jessica De La Cruz
Primary Senior Mechanical Designer: Dr. Dion Gastelum of [facility]
Impression:
Acute on chronic HFrEF
CM EF 35-40% by echo 11/23/23
Permanent Afib
2V CAD by cath 11/22/23
Severe Aortic stenosis MG 23mmHg, HOMERO 0.5cm2
Moderate - severe MR
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
s/p CABG x2 (in situ JIMENES to LAD and Ao-RSVG-OM/LPL), SAVR, MVR, LA MAZE, TANJA occlusion 12/01/23
severe high grade L subclavian stenosis and R carotid stenosis 50-69%
HTN
HLD
DM
GERD
Gout
ECHO 11/23/23: EF 35 to 40%, global hypokinesis, severely enlarged LA, moderately enlarged RA, mild MS with peak/mean gradients of 10/4 mmHg, moderate eccentric MR, severe with peak/mean gradients 56/35 mmHg, HOMERO 0.75 cm�, no AR, mild MS. New
reduction in EF compared to prior echo
MATTHIAS 11/27/23: EF 40%, mild global hypokinesis with slight worsening in septum, normal RV size with reduced systolic function, severe MR with thin, filamentous, hypermobile density concerning for a vegetation on the anterior mitral valve leaflet.
Plan:
-Patient came to for a cath on 11/22/23 and was found to have LAD and Circ disease. Patient was then admitted for diuresis and ongoing work-up of severe and MR.
-s/p CABG x2 (in situ JIMENES to LAD and Ao-RSVG-OM/LPL), SAVR, MVR, LA MAZE, TANJA occlusion 12/01/23
-EF 40% by MATTHIAS 11/26, 55% by intraop MATTHIAS 11/30.
-intubated, sedated
-in SR with PVCs. EKG SR with 1st degree av block, bifascicular block, prolonged QTc. follow
-CI 1.5
-on epi @1.5, cardene @5, insulin @6. wean as able
-CM regimen includes Toprol XL 100 mg BID (had been 75 mg BID prior to admission), spironolactone 25 mg daily (outpatient dose), lisinopril 2.5 mg daily (new this admission and currently on hold d/t surgery) and Farxiga 10 mg daily (new this
admission and currently on hold d/t surgery). was on bumex 2mg po daily prior to admission
-Patient with h/o persistent Afib on admission. amiodarone added this admission. Outpatient dose of Eliquis 5 mg BID presently on hold d/t surgery. No h/o thromboembolic event
-Carotid u/s imaging with evidence of severe high grade left subclavian stenosis and right carotid stenosis 50-69%
-LDL 36. Cont atorvastatin 40 mg daily which is new this admission because patient was taking simvastatin 40 mg daily prior to admission
-d/w nursing
HPI: 73-year-old woman with a past medical history of hypertension, insulin-dependent diabetes, gout, prior cellulitis, obesity, and severe aortic stenosis.� Echocardiography performed in November 2022 showed preserved LV function with a mean gradient
of 47 mmHg and eccentric mild to moderate mitral regurgitation.� She presented to the [facility] emergency room in August with congestive heart failure with new A-fib and rapid ventricular response.� She was rate controlled and diuresed
and discharged.� Attempts to restore normal sinus rhythm were unsuccessful and she was readmitted with recurrent heart failure on October 23.� She was again diuresed over a 2-week hospitalization followed by 1 week in rehab.� Cardioversion on
amiodarone was reattempted but she went back into atrial fibrillation.� Since being home she has felt better but is still not back to her baseline.
Progress Note - Senior Mechanical Designer
Subjective
Date of Service: December 01, 2023
intubated, sedated
Objective
Labs:
12/01/23 14:10
Labs
Hgb 10.1 g/dL (12.0-16.0) L D 12/01/23 14:10
Hct 29.6 % (37.0-47.0) L 12/01/23 14:10
Plt Count 154 10^3/uL (130-400) D 12/01/23 14:10
PT 21.8 Sec (11.4-14.6) H 12/01/23 14:10
INR 1.92 12/01/23 14:10
APTT 29.3 Sec (23.4-35.0) 12/01/23 14:10
Sodium 133 mmol/L (135-145) L 11/30/23 04:35
Potassium 5.1 mmol/L (3.5-5.1) 11/30/23 04:35
BUN 46 mg/dl (7-17) H 12/01/23 14:10
Creatinine 0.8 mg/dL (0.6-1.0) 12/01/23 14:10
Glucose 181 mg/dl (70-99) H 12/01/23 14:10
Vital Signs and I&O:
Vital Signs
Temp Pulse Resp BP Pulse Ox
97.8 F 60 16 96/54 96
12/01/23 15:00 12/01/23 15:00 12/01/23 15:00 12/01/23 05:58 12/01/23 15:00
Vital Signs
Temp Pulse Resp BP Pulse Ox
97.8 F 60 16 96/54 96
12/01/23 15:00 12/01/23 15:00 12/01/23 15:00 12/01/23 05:58 12/01/23 15:00
Intake & Output
11/29/23 11/30/23 12/01/23 12/02/23
07:59 07:59 07:59 07:59
Intake Total 38 / 38 420 / 420 388 / 388 138.1 / 138.1
Output Total 1100 / 1100 2100 / 2100 2240 / 2240 185 / 185
Balance -1062 / -1062 -1680 / -1680 -1852 / -1852 -46.9 / -46.9
Physical Exam
Physical Exam
GEN: No distress, intubated, sedated
HEENT: supple, anicteric, mmm, eomi
LUNGS: CTA B/L, no wheezes/rales
CV: Reg, S1/S2, no murmur
ABD: soft, hypoactive BS
EXT: No cyanosis, clubbing, edema
NEURO: sedated however appropriately follows commands
SKIN: Warm, pink, dry. No rash. Sternotomy c/d/i. Temp wire in place. CTs in place
[2023-12-01 16:02] LABS: Glucose - Point of Care 125 mg/dl (70-99)
--- NOTE | 2023-12-01 16:14 | PTCARENOTE ---
Patient is more awake. She is opening her eyes and nodding appropriately to answer questions. She is following commands - wiggling toes and squeezing hands bilaterally. Respiratory therapist placed her on CPAP. Oxygen saturation 98%. RR 12-20. TV
100-300cc. Her son, Waldemar is at bedside holding her hand. Will obtain an ABG in 30min.
[2023-12-01 16:56] LABS: Mixed Venous O2 Saturation 47.9 %
[2023-12-01 16:57] LABS: B.E. -2.7 mmol/L; HCO3 22.6 mmol/L (21-28); O2 Saturation % 98.8 % (94-98); PCO2 40 mmHg (32-35); PO2 125 mmHg (83-108); pH 7.36 (7.35-7.45)
[2023-12-01 17:01] LABS: Glucose - Point of Care 99 mg/dl (70-99)
--- NOTE | 2023-12-01 17:10 | RESPNOTE ---
pt extubated to 6lpm of nasal cannula. 02 sats of 96% noted
--- NOTE | 2023-12-01 17:12 | PTCARENOTE ---
ABG results came back. Patient extubated by RN and respiratory therapist at 1710. Patient tolerated. Placed on 6L NC. Oxygen saturation 99%.
[2023-12-01] MEDS: DOBUTREX 500 MG 250 IV (17:32)
[2023-12-01 18:06] LABS: Glucose - Point of Care 144 mg/dl (70-99)
[2023-12-01] MEDS: LIPITOR PO (18:13)
[2023-12-01] MEDS: LOW STRENGTH ASPIRIN 81 MG PO (19:08)
[2023-12-01] MEDS: ROXICODONE 5 MG PO (19:08)
[2023-12-01 19:28] LABS: Mixed Venous O2 Saturation 52.6 %
[2023-12-01 19:30] LABS: Hemoglobin 9.5 g/dL (12.0-16.0); Platelet Count 150 10^3/uL (130-400)
[2023-12-01] MEDS: SENOKOT-S 1 TABLET PO (19:54)
[2023-12-01] MEDS: ANCEF 5 IV (19:56)
[2023-12-01] MEDS: DESENEX/MITRAZOL/ZEASORB 1 APPLIC TOPICAL (20:00)
[2023-12-01 20:01] LABS: Glucose - Point of Care 102 mg/dl (70-99)
--- NOTE | 2023-12-01 20:30 | PTCARENOTE ---
Assumed care of patient at 1900. Patient found in bed at time of assessment with son at bedside. Patient is AOx4, follows commands appropriately, moves all extremities. Patient does report some generalized weakness. Lung sounds are diminished
throughout, respirations are shallow, saO2 @100% on 4L via NC. There is CTx4: 2xmeds to one atrium and R/L pleural to one atrium with red sanguineous drainage. Heart sounds have a regular rate rate and rhythm there is a noticeable rub present on
auscultation. Patient is SR on monitor with long QT, 1st deg AV block, BBB, and occasional monomorphic PVCs. A+V wires are present with AAI settings 40/6/0.5. Patient has weak but palpable radial and dorsalis pedis pulses. Patient's fingers are pale
and discolored patient does reports Raynaud's syndrome. No edema is noted. Patient has hypoactive BS throughout all four quadrants with round obese abdomen. There is a farnsworth in place draining clear yellow urine. Patient has a sternal incision
approximated with surgical adhesive and sutures present that is RONNY. There is a R groin puncture approx with surg adhesive and RONNY. There is a RLE incision approx with surg adhesive and BALLPOINT PENS ASSEMBLER. Patient has MASD in abdominal folds and groin desenex
applied per orders. Patient has the following lines: R IJ cordis with swan@49cm, R radial [place], R wrist 22G PIV. Patient has the following gtts: Insulin@1.3, Cordis KVO, VIP KVO, Dobut@2, Epi@1.5. Patient reporting sternal pain at change of shift
given leonarda 5 which appears to have provided relief. Vital signs as follows: T-98.7 P-70 BP-124/52 MAP-72 RR-23 CVP-10 CI-1.68
[2023-12-01] MEDS: TYLENOL 1000 MG PO (21:57)
[2023-12-01] MEDS: NEURONTIN 100 MG PO (21:57)
[2023-12-01 22:03] LABS: Glucose - Point of Care 105 mg/dl (70-99)
[2023-12-02] VITALS (27 sets, daily range): BP systolic 71–141; BP diastolic 12–94; BMI 33.5
[2023-12-02 00:10] LABS: Glucose - Point of Care 127 mg/dl (70-99)
--- NOTE | 2023-12-02 00:30 | PTCARENOTE ---
Patient reassessed. VSS. Remains SR with 1st deg AV BBB long QT on the monitor. No c/o pain requiring medication repositioning sufficient. Patient ordered 250cc albumin for low CI/svO2. Patient CI 1.78 following infusion. VSS. Patient sleeping at
this time.
[2023-12-02 02:02] LABS: Glucose - Point of Care 127 mg/dl (70-99)
--- NOTE | 2023-12-02 03:48 | W.PN.CT ---
Today's Communication / Plan
-
Plan:
-No major issues overnight. Hemodynamically and neurologically intact
-Successfully extubated yesterday 12/01/23 @ 1719
-On Epinephrine @ 1.5, Dobutamine @ 2, and insulin gtt per protocol
-Last CI 2.1->2.42->2.06, u/o since OR 1030 mL
-Monitor chest tube output: 2meds 80/140, R/L pls 100/160
-Wean off inotropes as tolerated
-Will d/c swan and a-line once able to wean off inotropes
-Transfer to [facility] tomorrow once off insulin gtt, will likely require Diabetes education/management given hgb A1C of 9.2
-D/C farnsworth catheter
-Maintain cordis
-Maintain temporary pacer wires (will cut prior to d/c home)
-Cont. current meds (ASA, Lipitor; Amiodarone/Lopressor- held last night while on inotropes; add Plavix)
-Encourage use of IS
-Wean off of O2 as tolerated
-OOB into chair/Ambulate
Assessment / Plan
-
Assessment:
-S/P Aortic Valve Replacement (23mm Inspiris)/ Chordal Sparing Mitral Valve Replacement (29mm Mitris) with bovine patch of the annulus at P1 into P2/CABG x 2 (In situ JIMENES to LAD and Ao-RSVG-OM/LPL)/Left atrial MAZE/Left atrial appendage occlusion
(35mm Clip), by Dr. Najera,
12/01/23, pod#1
-Severe aortic valve stenosis
-Severe mitral valve insufficiency secondary to degeneration with mixed pathology heavy calcification of the leaflets into the annulus
-Multivessel coronary disease
-New onset atrial fibrillation with rapid ventricular response on anticoagulation S/P unsuccessful cardioversion x 2
-Moderate pulmonary hypertension with PA systolics in the 50s to 60s
-LVEF 40%; postop 55%
-Acute on chronic systolic CHF
-HTN
-T2DM (hgb A1C 9.2)
-Hyperlipidemia
-Class 1 obesity (BMI 32.5)
-GERD
-Neck pain S/p C4-5 laminectomy
-Spinal stenosis/Chronic back pain with ambulatory dysfunction S/P uses cane
-S/P B/L TKR
-S/P b/l Cataracts
-Hx uterine ca S/p HERIBERTO (no chemo/XRT)
-Acute postop blood loss/Anemia (stable without transfusion)
-Acute postop atelectasis/pleural effusion
-Preop and postop cardiogenic shock (requiring inotropic support with dobutamine and epinephrine)
-Acute postop hypovolemia with subsequent hypervolemia
Discussed patient care with: Cardiology, Nursing, Respiratory Therapy, Pharmacy and Care Team
Subjective
-
Date of Service: December 02, 2023
Objective Data
-
PT 21.8 Sec (11.4-14.6) H 12/01/23 14:10
INR 1.92 12/01/23 14:10
APTT 29.3 Sec (23.4-35.0) 12/01/23 14:10
Vital Signs
Vital Signs
Temp Pulse Resp BP Pulse Ox
97.6 F 78 13 126/56 99
12/02/23 03:00 12/02/23 03:05 12/02/23 03:05 12/02/23 03:00 12/02/23 03:00
CT Intake/Output/Weight
12/01/23 12/01/23 12/02/23
06:59 18:59 06:59
Intake Total 819.3 / 1529.6 710.3 / 1529.6
Output Total 1100 / 2240 415 / 1125 710 / 1125
Balance -1100 / -1852 404.3 / 404.6 0.3 / 404.6
SaO2: 99
Physical Exam
-
General: Awake, Oriented and AOx3
Cardiovascular: Regular rate & rhythm, No Murmurs and No Rub
Respiratory: Decreased Breath Sounds
Sternum: Stable
Incision: Clean, Dry, Intact and Dressing Intact
Extremities: No Edema
Data Reviewed
-
Lab Results: Results Reviewed
Medications: Active Meds Reviewed
Chest X-Ray: Report Reviewed and Image Reviewed
ECG: Report Reviewed and Image Reviewed
[2023-12-02 04:27] LABS: Glucose - Point of Care 131 mg/dl (70-99)
[2023-12-02 05:17] LABS: Mixed Venous O2 Saturation 65.1 %
[2023-12-02 05:24] LABS: Hematocrit 26.8 % (37.0-47.0); Hemoglobin 8.7 g/dL (12.0-16.0); Mean Corp Hgb Conc. 32.5 g/dL (33.0-37.0); Mean Corpuscular Hgb 30.1 pg (27.0-31.0); Mean Corpuscular Volume 92.7 fL (81.0-99.0); Mean Platelet Volume 10.7 fL (7.4-10.4); Platelet Count 125 10^3/uL (130-400); Red Blood Cell Count 2.89 10^6/uL (4.20-5.40); White Blood Cell Count 12.9 10^3/uL (4.8-10.8)
--- NOTE | 2023-12-02 05:30 | PTCARENOTE ---
Patient reassessed. VSS. No c/o pain. AM hygine care provided. Labs obtained. Per CT PA patient to remain in bed this AM. EKG obtained. Remains in SR with first deg AV BBB and long QT. Patient with increased ectopy this morning CT PA notified no new
orders at this time. Patient overall stable.
[2023-12-02] MEDS: ANCEF 5 IV ×2 (05:37→13:51)
[2023-12-02] MEDS: TYLENOL 1000 MG PO ×3 (05:37→20:59)
[2023-12-02 05:44] LABS: Blood Urea Nitrogen 43 mg/dl (7-17); Calcium 9.2 mg/dl (8.4-10.2); Carbon Dioxide 22 mmol/L (22-30); Chloride 106 mmol/L (98-107); Estimated Creatinine Clearance 52 ml/min; Glucose 141 mg/dl (70-99); Magnesium 2.6 mg/dl (1.6-2.3); Potassium 4.1 mmol/L (3.5-5.1); Sodium 136 mmol/L (135-145); eGFR > 60.00
[2023-12-02 06:03] LABS: Glucose - Point of Care 103 mg/dl (70-99)
--- NOTE | 2023-12-02 08:00 | PTCARENOTE ---
Assumed care of patient from prev RN. walking rounds done. Patient in bed at time of assessment. AAOx3. Drowsy, pale. NSR with 1 av block BBB and prolonged QT noted. HR 70s. temp pacer with A wires and v wires. A on set to back up of 40/6/0.5. no
pacing noted. +rub. Lung sounds are diminished throughout, respirations are shallow, saO2 @98% on 2L NC. CTx4: 2xmeds and R/L pleural. no air leak/crepitus. draining seroisang. weak radial and DPs. No edema. + BS and reports passing gas. Poor
appetite. farnsworth draining clear yellow urine. All surgical sites c/d/i. R IJ cordis and swan @49cm, R radial [place], R wrist PIV. Insulin in fusing per glycemic protocol as well as Dobut @2, Epi@1.5. Minimal pain reported at this time. will continue
to monitor and await rounds with Dr Najera.
[2023-12-02 08:19] LABS: Glucose - Point of Care 80 mg/dl (70-99)
[2023-12-02] MEDS: NOVOLOG FLEXPEN SC ×2 (08:19→18:33)
[2023-12-02] MEDS: NSS IV (08:20)
[2023-12-02] MEDS: PROTONIX 40 MG PO (08:29)
[2023-12-02] MEDS: LOW STRENGTH ASPIRIN 81 MG PO (08:29)
[2023-12-02] MEDS: SENOKOT-S 1 TABLET PO ×2 (08:29→21:00)
[2023-12-02] MEDS: PACERONE 200 MG PO ×2 (08:30→16:57)
[2023-12-02] MEDS: NEURONTIN 100 MG PO ×3 (08:30→20:59)
[2023-12-02] MEDS: PLAVIX 75 MG PO (08:30)
[2023-12-02] MEDS: ROXICODONE 5 MG PO ×2 (08:31→17:13)
[2023-12-02] MEDS: BACTROBAN 2% OINTMENT 1 APPLIC NASAL ×2 (08:37→20:59)
[2023-12-02] MEDS: DESENEX/MITRAZOL/ZEASORB 1 APPLIC TOPICAL ×2 (08:37→21:01)
[2023-12-02 10:34] LABS: Glucose - Point of Care 170 mg/dl (70-99)
--- NOTE | 2023-12-02 11:05 | W.PN.INTV ---
Today's Communication / Plan
Recommendations
Continue postoperative care
Wean off inotropes
Increase activity as able
Eventual anticoagulation
Monitor H&H
Monitor chest tube output
Recommending CT of the chest in about 3 months to document resolution of bibasilar abnormalities.
Assessment
-
Status post aortic valve and mitral valve replacement and coronary artery bypass, left maze procedure and left atrial appendage occlusion 12/01/2023-Dr. Najera
Postoperative mechanical ventilation
-
MATTHIAS reported possible vegetation of the mitral valve. Cardiology felt not a vegetation at this point
Blood cultures negative
Abnormal CT chest: Bibasilar infiltrates atelectasis versus pneumonia.
All cultures were negative. Procalcitonin negative.
No leukocytosis or fevers
-
Conditions present prior admission:
Cardiomyopathy with ejection fraction 35-40% on echocardiogram 11/23/2023
Atrial fibrillation
Two-vessel coronary artery disease by catheterization 11/2023
Severe aortic stenosis and moderate to severe mitral regurgitation
Hypertension
history of uterine cancer s/p HERIBERTO, no chemo/XRT
Hyperlipidemia
Type 2 diabetes
GERD
Gout
High-grade left subclavian stenosis and right carotic stenosis 50-69%
ECHO 11/23/23: EF 35 to 40%, global hypokinesis, severely enlarged LA, moderately enlarged RA, mild MS with peak/mean gradients of 10/4 mmHg, moderate eccentric MR, severe with peak/mean gradients 56/35 mmHg, HOMERO 0.75 cm�, no AR, mild MT.� New
reduction in EF compared to prior echo.
RHC/LHC 11/22/23:
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
2: Severe aortic stenosis in the setting of low cardiac output.
3: Markedly elevated pulmonary pressures in the setting of low cardiac output with elevated left ventricular filling pressures.
---------
Assessment and plan:
Extubated 12/01/2023 without major events
On low rate supplemental oxygen
Pain is relatively well-controlled
Sitting out of bed eating breakfast
Incentive spirometry encouraged
Increase activity as able
Anemia noted-no evidence of acute bleeding
Follow H&H serially
Hemodynamics -currently on low-dose dobutamine/epinephrine
To be weaned off slowly over the next several hours per CT surgery
Patient appears comfortable
Renal function is normal
Adequate urinary output
Eventual anticoagulation
Chest tube with no excessive drainage-no air leak.
Chest x-ray reviewed: With no pneumothorax or fluid collections. Low lung volumes.
Advance diet as tolerated
Head of the bed elevation
Glycemic control per protocol-wean off insulin drip.
Abnormal CT chest: No antibiotics received.
Recommend repeating CT chest in about 3 months from now to document improvement/resolution.
Discussed with patient, information will be left in the chart.
DVT prophylaxis when safe from the surgical perspective.
Patient progressing well. No additional recommendation from the critical care perspective.
Sign off.
Subjective Dataa
Subjective Data
Date of Service:
Date of Service: December 02, 2023
Chief Complaint: Superintendent Transportation Follow Up (Status post aortic valve replacement/mitral valve replacement and coronary artery bypass)
Subjective:
Sitting out of bed eating breakfast
Pain is relatively controlled
No shortness of breath at rest
No significant coughing
Review of Systems
General: Fever (n)
Cardiopulmonary: Dyspnea (none at rest) and Chest Pain (n)
GI: Abdominal Pain (n) and Nausea (n)
Neuro: Headache (n)
Objective Data
Data Reviewed
Vital Signs / I&O / Oxygen:
Vital Signs
Temp Pulse Resp BP Pulse Ox
97.4 F 75 16 113/47 98
12/02/23 10:00 12/02/23 10:34 12/02/23 10:34 12/02/23 10:00 12/02/23 10:00
Intake and Output
12/01/23 12/02/23 12/03/23
06:59 06:59 06:59
Intake Total 388 / 388 1657.7 / 1657.7 264.8 / 264.8
Output Total 2240 / 2240 1330 / 1330 280 / 280
Balance -1852 / -1852 327.7 / 327.7 -15.2 / -15.2
SaO2 [SIMV] 99
SaO2 98
Nasal Cannula flow liters per 2
minute
Physical Exam
General: Respiratory Distress (n) and Comfortable
HEENT: Normocephalic
Cardiovascular: S1-S2 and Regular Rhythm
Respiratory: Clear, Non-Labored Respirations and Chest Tube (No air leak or excessive drainage)
GI: Soft and Non Distended
Neurology: Awake, Alert, Oriented and No Motor Deficits
Skin: Warm
Labs/Micro/Reports
Lab Data
12/02/23 04:40
12/02/23 04:40
Laboratory Results
12/01/23 12/01/23
14:10 16:48
PT 21.8 H
INR 1.92
APTT 29.3
pH 7.43 7.36
pCO2 33 40 H
pO2 139 H 125 H
HCO3 21.9 22.6
O2 Delivery Level Not Reportable
Microbiology
11/28/23 05:06 Blood/Venous Blood Culture - Preliminary
No Growth in 4 days- Final report to follow
11/27/23 14:47 Blood/Venous Blood Culture - Preliminary
No Growth in 4 days- Final report to follow
11/27/23 12:17 Blood/Venous Blood Culture - Preliminary
No Growth in 4 days- Final report to follow
[2023-12-02 12:57] LABS: Glucose - Point of Care 139 mg/dl (70-99)
[2023-12-02] MEDS: NOVOLOG FLEXPEN 4 UNITS SC (13:14)
[2023-12-02] MEDS: NOVOLIN R INSULIN INFUSION 100 IV (13:25)
[2023-12-02 15:10] LABS: Glucose - Point of Care 108 mg/dl (70-99)
[2023-12-02 15:38] LABS: Mixed Venous O2 Saturation 58.6 %
--- NOTE | 2023-12-02 15:44 | W.PN.CARDCBS ---
Today's Communication / Plan
-
Postop care
Impression / Plan
-
Primary Care Physician: Dr. Jessica De La Cruz
Primary Gunner'S Mate M: Dr. Dion Gastelum of [facility]
Impression:
Acute on chronic HFrEF
CM EF 35-40% by echo 11/23/23
Permanent Afib
2V CAD by cath 11/22/23
Severe Aortic stenosis MG 23mmHg, HOMERO 0.5cm2
Moderate - severe MR
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
s/p CABG x2 (in situ JIMENES to LAD and Ao-RSVG-OM/LPL), SAVR, MVR, LA MAZE, TANJA occlusion 12/01/23
severe high grade L subclavian stenosis and R carotid stenosis 50-69%
HTN
HLD
DM
GERD
Gout
ECHO 11/23/23: EF 35 to 40%, global hypokinesis, severely enlarged LA, moderately enlarged RA, mild MS with peak/mean gradients of 10/4 mmHg, moderate eccentric MR, severe with peak/mean gradients 56/35 mmHg, HOMERO 0.75 cm�, no AR, mild NM. New
reduction in EF compared to prior echo
MATTHIAS 11/27/23: EF 40%, mild global hypokinesis with slight worsening in septum, normal RV size with reduced systolic function, severe MR with thin, filamentous, hypermobile density concerning for a vegetation on the anterior mitral valve leaflet.
Plan:
-Patient came to for a cath on 11/22/23 and was found to have LAD and Circ disease. Patient was then admitted for diuresis and ongoing work-up of severe and MR.
-s/p CABG x2 (in situ JIMENES to LAD and Ao-RSVG-OM/LPL), SAVR, MVR, LA MAZE, TANJA occlusion 12/01/23
-EF 40% by MATTHIAS 11/26, 55% by intraop MATTHIAS 11/30.
-extubated, but remains on supplemental O2
-epi and dobutamine being weaned
-On ASA/Plavix/high intensity statin
-metoprolol on hold for now, would resume when hemodynamically stable
-Patient with h/o persistent Afib
-Amiodarone added this admission
-Outpatient dose of Eliquis 5 mg BID presently on hold d/t surgery
HPI: 73-year-old woman with a past medical history of hypertension, insulin-dependent diabetes, gout, prior cellulitis, obesity, and severe aortic stenosis.� Echocardiography performed in November 2022 showed preserved LV function with a mean gradient
of 47 mmHg and eccentric mild to moderate mitral regurgitation.� She presented to the [facility] emergency room in August with congestive heart failure with new A-fib and rapid ventricular response.� She was rate controlled and diuresed
and discharged.� Attempts to restore normal sinus rhythm were unsuccessful and she was readmitted with recurrent heart failure on October 23.� She was again diuresed over a 2-week hospitalization followed by 1 week in rehab.� Cardioversion on
amiodarone was reattempted but she went back into atrial fibrillation.� Since being home she has felt better but is still not back to her baseline.
Progress Note - Gunner'S Mate M
Subjective
Date of Service: December 02, 2023
NAOE. Resting comfortably in CVICU. Extubated, but remains on supplemental O2. Epi and dobutamine for hemodynamic support. No cardiac complaints.
Objective
Labs:
12/02/23 04:40
12/02/23 04:40
Labs
Hgb 8.7 g/dL (12.0-16.0) L 12/02/23 04:40
Hct 26.8 % (37.0-47.0) L 12/02/23 04:40
Plt Count 125 10^3/uL (130-400) L 12/02/23 04:40
PT 21.8 Sec (11.4-14.6) H 12/01/23 14:10
INR 1.92 12/01/23 14:10
APTT 29.3 Sec (23.4-35.0) 12/01/23 14:10
Sodium 136 mmol/L (135-145) 12/02/23 04:40
Potassium 4.1 mmol/L (3.5-5.1) 12/02/23 04:40
BUN 43 mg/dl (7-17) H 12/02/23 04:40
Creatinine 0.9 mg/dL (0.6-1.0) 12/02/23 04:40
Glucose 141 mg/dl (70-99) H 12/02/23 04:40
Vital Signs and I&O:
Vital Signs
Temp Pulse Resp BP Pulse Ox
97.8 F 71 21 118/69 95
12/02/23 15:00 12/02/23 15:00 12/02/23 15:00 12/02/23 15:00 12/02/23 15:00
Vital Signs
Temp Pulse Resp BP Pulse Ox
97.8 F 71 21 118/69 95
12/02/23 15:00 12/02/23 15:00 12/02/23 15:00 12/02/23 15:00 12/02/23 15:00
Intake & Output
11/30/23 12/01/23 12/02/23 12/03/23
06:59 06:59 06:59 06:59
Intake Total 420 / 420 388 / 388 1657.7 / 1657.7 460.2 / 460.2
Output Total 2100 / 2100 2240 / 2240 1330 / 1330 445 / 445
Balance -1680 / -1680 -1852 / -1852 327.7 / 327.7 15.2 / 15.2
Physical Exam
Physical Exam
Gen: NAD
HEENT: NC/AT, sclera anicteric
Neck: No JVD
CV: RRR, NL s1/s2
Lungs: CTAB on 2L NC. Chest tubes with sanguineous drainage.
Abd: S/ND
: Balderas with bradley urine.
Ext: No LE edema
Skin: Warm, dry. Sternotomy CDI.
Neuro: Non-focal
--- NOTE | 2023-12-02 15:47 | PTCARENOTE ---
mixed venous sent.
[2023-12-02] MEDS: KCL 20 MEQ PO (16:58)
[2023-12-02] MEDS: BUMEX 1 MG IV (17:00)
[2023-12-02] MEDS: LIPITOR 40 MG PO (17:13)
[2023-12-02 17:14] LABS: Glucose - Point of Care 105 mg/dl (70-99)
--- NOTE | 2023-12-02 17:15 | PTCARENOTE ---
second mixed venous sent.
[2023-12-02] MEDS: PRIMACOR 20 MG 100 IV (18:30)
--- NOTE | 2023-12-02 18:47 | PTCARENOTE ---
orders to start milrinone at 0.25 mcg and give 1 unit PRBCs. card sent for blood products and gtt started. CI now 1.99 with dobut @ 3mcg as well. report given to certified activities director RN Drew.
[2023-12-02 19:17] LABS: Glucose - Point of Care 76 mg/dl (70-99)
[2023-12-02 20:11] LABS: Glucose - Point of Care 99 mg/dl (70-99)
[2023-12-02 21:17] LABS: Glucose - Point of Care 106 mg/dl (70-99)
--- NOTE | 2023-12-02 21:30 | PTCARENOTE ---
Transfusion complete. CI post transfusion 2.77. CT PA ordered calcium chloride to be administered now.
[2023-12-02] MEDS: CALCIUM CHLORIDE 10% SYRINGE 60 MG IV (21:36)
--- NOTE | 2023-12-02 21:41 | PTCARENOTE ---
Assumed care of patient at 1900. Patient found resting in bed at time of assessment. Patient is AOx4, follows commands, moves all extremities although patient is drowsy. Lung sounds are diminished throughout, respirations are shallow, saO2 is 92% on
1L NC. Patient is performing IS 500 cc max. CTx4: 2x meds to one atrium and R/L pleural to one atrium with red sanguineous output. Heart sounds have a regular rate and rhythm, rub is present on auscultation, patient is SR on the phototypesetting equipment monitor with
1st deg AV block, BBB, and occasional monomorphic PVCs. Patient has weak but palpable pulses. Cap refill>3 seconds on bilateral hands 2/2 raynauds. No edema is noted. Patient has a poor appetite, postive BS throughout all four quadrants, patient
reports flatus. There is a farnsworth in place draining clear yellow urine. Patient has the following lines: R IJ cordis with swan @49cm, R radial [place], R wrist 22G. Patient has the following gtts: Dobutamine@3, Milrinone@0.25, Insulin gtt@0.1. Vital
signs as follows: T-97.9 P-78 BP-138/47 MAP-73 RR-17 CVP-10 PAP- 62/15 CI-1.99. Patient currently has blood transfusing and is tolerating. Patient is stable
[2023-12-02 22:06] LABS: Glucose - Point of Care 89 mg/dl (70-99)
[2023-12-02 23:07] LABS: Glucose - Point of Care 99 mg/dl (70-99)
[2023-12-03] VITALS (13 sets, daily range): BP systolic 103–151; BP diastolic 40–123; PULSE 85; BMI 34.3
--- NOTE | 2023-12-03 00:05 | PTCARENOTE ---
Patient reassessed. VSS. Remains SR with first deg AV block, BBB on the quality assurance monitor body. Remains on 1L O2 via NC saO2 ranging 92-93%. No c/o pain. Patient is stable.
[2023-12-03 00:10] LABS: Glucose - Point of Care 93 mg/dl (70-99)
--- NOTE | 2023-12-03 01:35 | PTCARENOTE ---
Milrinone gtt off per CT PA. Received order to taper Dobut based on q1h CI>2.2. Dobut was at 3mcg tapered to 2.5. Will continue to monitor.
[2023-12-03 02:10] LABS: Glucose - Point of Care 113 mg/dl (70-99)
[2023-12-03 03:35] LABS: Ionized Calcium 1.29 mMOL/L (1.15-1.33)
[2023-12-03 03:36] LABS: Hematocrit 28.5 % (37.0-47.0); Hemoglobin 9.5 g/dL (12.0-16.0); Mean Corp Hgb Conc. 33.3 g/dL (33.0-37.0); Mean Corpuscular Hgb 30.5 pg (27.0-31.0); Mean Corpuscular Volume 91.6 fL (81.0-99.0); Mean Platelet Volume 9.9 fL (7.4-10.4); Platelet Count 112 10^3/uL (130-400); Red Blood Cell Count 3.11 10^6/uL (4.20-5.40); Red Cell Dist. Width 15.2 % (11.5-14.5); White Blood Cell Count 14.1 10^3/uL (4.8-10.8)
[2023-12-03 03:37] LABS: Mixed Venous O2 Saturation 52.9 %
[2023-12-03 03:57] LABS: Blood Urea Nitrogen 38 mg/dl (7-17); Calcium 9.3 mg/dl (8.4-10.2); Carbon Dioxide 21 mmol/L (22-30); Chloride 103 mmol/L (98-107); Estimated Creatinine Clearance 68 ml/min; Glucose 148 mg/dl (70-99); Magnesium 2.1 mg/dl (1.6-2.3); Potassium 4.7 mmol/L (3.5-5.1); Sodium 130 mmol/L (135-145); eGFR > 60.00
[2023-12-03 04:13] LABS: Glucose - Point of Care 147 mg/dl (70-99)
--- NOTE | 2023-12-03 04:23 | W.PN.CT ---
Today's Communication / Plan
-
Plan:
-No major issues overnight. Hemodynamically and neurologically intact
-Unable to wean off dobutamine overnight, but able to wean off Milrinone from 0.25
-Currently on Dobutamine @ 3, and insulin gtt per protocol
-Last CI 2.19 (with dobutamine @ 3). Indices dropped with attempts to wean off dobutamine (was able to get down to 2 before indices started to drop after Lasix)
-Monitor chest tube output: 2meds 70/100, R/L pls 55/165 (has not been out of bed, so will likely have to keep another day)
-Wean off Dobutamine as tolerated
-Will d/c swan and a-line once able to wean off inotropes
-Transfer to [facility] tomorrow once off insulin gtt, will likely require Diabetes education/management given hgb A1C of 9.2
-D/C farnsworth catheter if able to wean off dobutamine
-Maintain cordis
-Maintain temporary pacer wires (will cut prior to d/c home)
-Cont. current meds (ASA, Plavix, Lipitor; Lasix if BP permits, hold both Amiodarone and BB while on dobutamine; will likely replace Plavix with Eliquis on POD#4)
-Encourage use of IS
-Wean off of O2 as tolerated
-OOB into chair/Ambulate
Assessment / Plan
-
Assessment:
-S/P Aortic Valve Replacement (23mm Inspiris)/ Chordal Sparing Mitral Valve Replacement (29mm Mitris) with bovine patch of the annulus at P1 into P2/CABG x 2 (In situ JIMENES to LAD and Ao-RSVG-OM/LPL)/Left atrial MAZE/Left atrial appendage occlusion
(35mm Clip), by Dr. Najera,
12/01/23, pod#2
-Severe aortic valve stenosis
-Severe mitral valve insufficiency secondary to degeneration with mixed pathology heavy calcification of the leaflets into the annulus
-Multivessel coronary disease
-New onset atrial fibrillation with rapid ventricular response on anticoagulation S/P unsuccessful cardioversion x 2
-Moderate pulmonary hypertension with PA systolics in the 50s to 60s
-LVEF 40%; postop 55%
-Acute on chronic systolic CHF
-HTN
-T2DM (hgb A1C 9.2)
-Hyperlipidemia
-Class 1 obesity (BMI 32.5)
-GERD
-Neck pain S/p C4-5 laminectomy
-Spinal stenosis/Chronic back pain with ambulatory dysfunction S/P uses cane
-S/P B/L TKR
-S/P b/l Cataracts
-Hx uterine ca S/p HERIBERTO (no chemo/XRT)
-Acute postop blood loss/Anemia (transfused 1u PRBC)
-Acute postop atelectasis/pleural effusion
-Preop and postop cardiogenic shock (requiring inotropic support with dobutamine and epinephrine)
-Acute postop hypovolemia with subsequent hypervolemia
Discussed patient care with: Cardiology, Nursing, Respiratory Therapy, Pharmacy and Care Team
Subjective
Procedure
S/P Aortic Valve Replacement (23mm Inspiris)/ Chordal Sparing Mitral Valve Replacement (29mm Mitris) with bovine patch of the annulus at P1 into P2/CABG x 2 (In situ JIMENES to LAD and Ao-RSVG-OM/LPL)/Left atrial MAZE/Left atrial appendage occlusion
(35mm Clip), by Dr. Najera
-
Date of Service: December 03, 2023
Pt c/o mild incisional pain, otherwise feels well
Objective Data
-
Lab Results
12/03/23 03:23
12/03/23 03:23
PT 21.8 Sec (11.4-14.6) H 12/01/23 14:10
INR 1.92 12/01/23 14:10
APTT 29.3 Sec (23.4-35.0) 12/01/23 14:10
Vital Signs
Vital Signs
Temp Pulse Resp BP Pulse Ox
98.4 F 74 18 135/51 94
12/03/23 04:00 12/03/23 04:00 12/03/23 04:00 12/03/23 04:00 12/03/23 04:00
CT Intake/Output/Weight
12/02/23 12/02/23 12/03/23
06:59 18:59 06:59
Intake Total 838.4 / 1657.7 582.3 / 1576.3 994.0 / 1576.3
Output Total 915 / 1330 560 / 1395 835 / 1395
Balance -76.6 / 327.7 22.3 / 181.3 159.0 / 181.3
SaO2: 94 (1L)
Physical Exam
-
General: Awake, Oriented and AOx3
Cardiovascular: Regular rate & rhythm, No Murmurs, No Rub and No Gallop
Respiratory: Decreased Breath Sounds (at bases, otherwise clear)
Sternum: Stable
Incision: Clean, Dry, Intact and Dressing Intact
Extremities: Other (+trace edema)
Data Reviewed
-
Lab Results: Results Reviewed
Medications: Active Meds Reviewed
Chest X-Ray: Report Reviewed and Image Reviewed
ECG: Report Reviewed and Image Reviewed
--- NOTE | 2023-12-03 04:30 | PTCARENOTE ---
Addendum entered by Jitendra Savage RN 12/03/23 06:34:
Attempted to wean patient to RA. Pulse Ox dipped to 88-89%. Resumed 1L via NC pulse ox improved to 92-93%.
Original Note:
Patient reassessed. VSS. AM hygiene care provided. AM labs obtained. Dobut gtt at 2. Last CI 2.35. Per CT PA no delining. Patient to remain in bed. Balderas to remain in place. Patient is stable at this time.
[2023-12-03] MEDS: LASIX 20 MG IV (04:43)
[2023-12-03] MEDS: ROXICODONE 5 MG PO (05:48)
[2023-12-03 06:12] LABS: Glucose - Point of Care 124 mg/dl (70-99)
[2023-12-03] MEDS: TYLENOL 1000 MG PO ×3 (06:31→21:16)
--- NOTE | 2023-12-03 07:32 | W.PN.ANS.POP ---
Anesthesia Post Operative
- Anesthesia Post Op Note
Vital Signs Stable-See Nursing Note: Yes
Airway Patent: Yes
Adequate Pain Control: Yes
Change in Mental Status: No
Current Postoperative Nausea & Vomiting: No
Anesthesia Complications: No
General Anesthetic Recall: No
Unplanned Admission: No
Post Op Hydration Adequate: Yes
- -
Pt awake and alert, resting comfortably with no anesthesia related c/o. VSS, no current N/V
[2023-12-03] MEDS: NSS 500 IV (08:06)
[2023-12-03] MEDS: LOW STRENGTH ASPIRIN 81 MG PO (08:06)
[2023-12-03] MEDS: PROTONIX 40 MG PO (08:06)
[2023-12-03] MEDS: PLAVIX 75 MG PO (08:06)
[2023-12-03] MEDS: SENOKOT-S 1 TABLET PO ×2 (08:06→20:57)
[2023-12-03] MEDS: BACTROBAN 2% OINTMENT 1 APPLIC NASAL ×2 (08:06→20:58)
[2023-12-03] MEDS: NEURONTIN 100 MG PO ×3 (08:06→21:16)
[2023-12-03] MEDS: DESENEX/MITRAZOL/ZEASORB 1 APPLIC TOPICAL ×2 (08:07→20:58)
[2023-12-03 08:11] LABS: Glucose - Point of Care 130 mg/dl (70-99)
--- NOTE | 2023-12-03 08:29 | PTCARENOTE ---
Assumed pt care. Walking rounds completed with previous RN. Pt resting in bed at time of assessment, AAO x 4, ABILIO MARTE. Pt reports intermittent CP - alleviated with PRN Roxicodone administration. Pt on 1L NC - POX 94%, IS & CDB encouraged, pt
reports intermittent/productive cough expectorating in tissue. Anterior BS clear, diminished in B/L bases. CT x 4 present & connected to suction, serosanguineous drainage present, no air leak/tidaling/crepitus. NSR on monitor, epicardial A & V wires
present - temp pacer set to AAI 40/6/0.5. Heart tones normal, distal pulses palpable, no edema on B/L LE's. Dobutrex infusing at 3 mcg/kg/min - CI/CO obtained. Q2H turning/repositioning provided. Pt remains on insulin gtt, breakfast ordered, reports
passing flatus, denies n/v. Balderas catheter draining clear/yellow, UO 50 mL/hr. Sternal incision RONNY, CDI. R groin ecchymotic, RONNY. MASD in R/L groin - Desenex applied. RIJ Cordis/[place] present, R radial A-line present - all central lines
balanced & zeroed. PIV present & patent. See NOV.
[2023-12-03] MEDS: FARXIGA 10 MG PO (10:04)
[2023-12-03] MEDS: LASIX 60 MG IV (10:04)
[2023-12-03] MEDS: KCL 20 MEQ PO (10:04)
[2023-12-03] MEDS: NOVOLOG FLEXPEN 2 UNITS SC (10:06)
[2023-12-03 10:09] LABS: Glucose - Point of Care 129 mg/dl (70-99)
[2023-12-03 10:27] LABS: Mixed Venous O2 Saturation 67.9 %
[2023-12-03] MEDS: FLEXERIL 5 MG PO (10:46)
[2023-12-03] MEDS: ROXICODONE 2.5 MG PO (11:34)
--- NOTE | 2023-12-03 11:48 | SUR.OPER ---
Pt restarted on Milrinone as ordered. Repeat VBG with CO/CI obtained 1-hour after gtt initiation. IV Diuresis administered. Pt guided to sit at edge of bed, stood for [address] without large drainage/dump, 155 mL drained from pleural CT's,
R > L. PA made aware. R pleural placed to bulb suction. MS & L Pleural CT removed as ordered without issue. Occlusie dressing applied to CT site. Pt assisted OOB to chair with assist x 1-2, tolerated activity well. PRN flexeril administered prior to
CT removal for pain. Pt reports mild pain 1 hour after administration, 2.5 mg PO Roxicodone administered. Pt remains OOB in chair, washing face & brushing teeth. Ate 100% of breakfast. No other changes.
[2023-12-03 12:41] LABS: Glucose - Point of Care 95 mg/dl (70-99)
[2023-12-03 13:31] LABS: Glucose - Point of Care 156 mg/dl (70-99)
[2023-12-03 13:33] LABS: Mixed Venous O2 Saturation 56.9 %
--- NOTE | 2023-12-03 14:37 | PTCARENOTE ---
Pt tolerated OOB to chair for afternoon. Pt assisted into bed. R pleural CT removed without issue. Balderas catheter d/c. Pt remains resting in bed. Waiting for pCXR s/p CT removal. Family at beside.
[2023-12-03 15:14] LABS: Glucose - Point of Care 129 mg/dl (70-99)
[2023-12-03] MEDS: NOVOLOG FLEXPEN-MODERATE RESISTANCE SC ×2 (15:50→18:16)
[2023-12-03 16:44] LABS: Mixed Venous O2 Saturation 56.4 %
--- NOTE | 2023-12-03 16:55 | PTCARENOTE ---
Pt rested in bed for 1.5 hours. Assisted OOB to chair with PT & rolling walker. Remains in chair. VSS - RA, NSR, Insulin, Dobutrex & Milrinone con't. Repeat CO/CI obtained with VBG. No other changes.
[2023-12-03] MEDS: LIPITOR 40 MG PO (17:17)
[2023-12-03 17:20] LABS: Glucose - Point of Care 82 mg/dl (70-99)
[2023-12-03] MEDS: NOVOLOG FLEXPEN 4 UNITS SC (18:13)
[2023-12-03] MEDS: PRIMACOR 20 MG 100 IV (19:14)
[2023-12-03 19:22] LABS: Glucose - Point of Care 96 mg/dl (70-99)
--- NOTE | 2023-12-03 20:00 | PTCARENOTE ---
assumed care of pt from previous RN. pt A&Ox4, resting in chair at time of assessment. no c/o pain at time of assessment. R IJ cordis w/ KVO, swan floated to 50cm. R radial a-line. all lines leveled, zeroed, flushed. temp epicardial A/V wires w/
backup settings AAI 40/6/05. pacer plugged in, on. NSR on tele-monitor, HR 80s. lungs clear to auscultation. pt voiding tea colored urine on BSC. PIV intact. see worklist for complete nursing assessment, interventions, gtt titrations, VS, and I&Os.
[2023-12-03] MEDS: ENTRESTO 24 MG/26 MG 1 TAB PO (20:56)
[2023-12-03] MEDS: DOBUTREX 500 MG 250 IV (20:57)
[2023-12-03 21:07] LABS: Glucose - Point of Care 126 mg/dl (70-99)
[2023-12-03] MEDS: PACERONE 200 MG PO (21:16)
[2023-12-03] MEDS: LEVEMIR 0.100000000000000006 UNITS SC (21:16)
[2023-12-04] MEDS: ROXICODONE 5 MG PO (00:03)
--- NOTE | 2023-12-04 00:15 | PTCARENOTE ---
assessment remains unchanged. VSS. SR w/ 1st degree AVB on tele-monitor. HR 70s. POX 94% on 2 L NC. insulin gtt d/c @ 2315. pain management, see NOV.
[2023-12-04 00:29] VITALS: BP 102/57
[2023-12-04 01:41] LABS: Complement C3 65 mg/dl (88-165)
[2023-12-04 03:52] LABS: Mixed Venous O2 Saturation 63.7 %
[2023-12-04 03:54] LABS: Hematocrit 27.3 % (37.0-47.0); Hemoglobin 8.6 g/dL (12.0-16.0); Mean Corp Hgb Conc. 31.5 g/dL (33.0-37.0); Mean Corpuscular Hgb 29.6 pg (27.0-31.0); Mean Corpuscular Volume 93.8 fL (81.0-99.0); Mean Platelet Volume 10.4 fL (7.4-10.4); Platelet Count 125 10^3/uL (130-400); Red Blood Cell Count 2.91 10^6/uL (4.20-5.40); Red Cell Dist. Width 15.2 % (11.5-14.5); White Blood Cell Count 11.9 10^3/uL (4.8-10.8)
--- NOTE | 2023-12-04 04:04 | PTCARENOTE ---
assessment remains unchanged. VSS. SR w/ 1st degree AVB on tele-monitor. POX 96% on 2 L NC. AM labs collected and sent.
[2023-12-04 04:18] LABS: Blood Urea Nitrogen 40 mg/dl (7-17); Calcium 8.7 mg/dl (8.4-10.2); Carbon Dioxide 23 mmol/L (22-30); Chloride 99 mmol/L (98-107); Estimated Creatinine Clearance 69 ml/min; Glucose 147 mg/dl (70-99); Potassium 4.6 mmol/L (3.5-5.1); Sodium 128 mmol/L (135-145); eGFR > 60.00
[2023-12-04 04:49] VITALS: BP 114/48
--- NOTE | 2023-12-04 04:56 | W.PN.CT ---
Today's Communication / Plan
-
Plan:
-No major issues overnight. Neurologically intact
-Able to wean off dobutamine @ 0140 this AM, remains on Milrinone @ 0.25 mcg/kg/min
-CI before dobutamine weaned off was 2.54, and 2.08 post. SVO2 is 63.7%
-H/H stable @ 8.6/27.3, likely some hemodilution
-Na 128, likely secondary to hypervolemia, will cont. diuresis as bp permits. May need placement of PureWick catheter to help with diuresis given mobility issues
-Slow wean of Milrinone as tolerated
-Will d/c swan and a-line once able to wean off inotrope
-Transfer to [facility] phase once able to de-line
-Will likely benefit from Diabetes education/management consult given hgb A1C of 9.2
-Maintain cordis another day
-Maintain temporary pacer wires (will cut prior to d/c home)
-Cont. current meds (ASA, Plavix, Lipitor; Lasix if BP permits, Amiodarone, holding BB while on Milrinone; will likely replace Plavix with Eliquis on POD#4)
-Encourage use of IS
-Wean off of O2 as tolerated
-OOB into chair/Ambulate, PT/OT following
-Will likely require eventual SNF placement
Assessment / Plan
-
Assessment:
-S/P Aortic Valve Replacement (23mm Inspiris)/ Chordal Sparing Mitral Valve Replacement (29mm Mitris) with bovine patch of the annulus at P1 into P2/CABG x 2 (In situ JIMENES to LAD and Ao-RSVG-OM/LPL)/Left atrial MAZE/Left atrial appendage occlusion
(35mm Clip), by Dr. Najera,
12/01/23, pod#3
-Severe aortic valve stenosis
-Severe mitral valve insufficiency secondary to degeneration with mixed pathology heavy calcification of the leaflets into the annulus
-Multivessel coronary disease
-New onset atrial fibrillation with rapid ventricular response on anticoagulation S/P unsuccessful cardioversion x 2
-Moderate pulmonary hypertension with PA systolics in the 50s to 60s
-LVEF 40%; postop 55%
-Acute on chronic systolic CHF
-HTN
-T2DM (hgb A1C 9.2)
-Hyperlipidemia
-Class 1 obesity (BMI 32.5)
-GERD
-Neck pain S/p C4-5 laminectomy
-Spinal stenosis/Chronic back pain with ambulatory dysfunction S/P uses cane
-S/P B/L TKR
-S/P b/l Cataracts
-Hx uterine ca S/p HERIBERTO (no chemo/XRT)
-Acute postop blood loss/Anemia (transfused 1u PRBC)
-Acute postop atelectasis/pleural effusion
-Preop and postop cardiogenic shock (requiring inotropic support with dobutamine and epinephrine)
-Acute postop hypovolemia with subsequent hypervolemia
-Pre and postop hyponatremia, 128
Discussed patient care with: Cardiology, Nursing, Respiratory Therapy, Pharmacy and Care Team
Subjective
Procedure
S/P Aortic Valve Replacement (23mm Inspiris)/ Chordal Sparing Mitral Valve Replacement (29mm Mitris) with bovine patch of the annulus at P1 into P2/CABG x 2 (In situ JIMENES to LAD and Ao-RSVG-OM/LPL)/Left atrial MAZE/Left atrial appendage occlusion
(35mm Clip), by Dr. Najera
-
Date of Service: December 04, 2023
Pt c/o mild incisinal pain, otherwise feels well. States pain better following chest tube removal yesterday
Objective Data
-
Lab Results
12/04/23 03:42
12/04/23 03:42
PT 21.8 Sec (11.4-14.6) H 12/01/23 14:10
INR 1.92 12/01/23 14:10
APTT 29.3 Sec (23.4-35.0) 12/01/23 14:10
Vital Signs
Vital Signs
Temp Pulse Resp BP Pulse Ox
98.7 F 68 22 102/57 96
12/04/23 04:00 12/04/23 04:00 12/04/23 04:00 12/04/23 00:29 12/04/23 04:00
CT Intake/Output/Weight
12/03/23 12/03/23 12/04/23
06:59 18:59 06:59
Intake Total 1109.9 / 1692.2 1231.3 / 1595.2 363.9 / 1595.2
Output Total 1080 / 1640 1100 / 1350 250 / 1350
Balance 29.9 / 52.2 131.3 / 245.2 113.9 / 245.2
SaO2: 96 (RA)
Physical Exam
-
General: Awake, Oriented and AOx3
Cardiovascular: Regular rate & rhythm, No Murmurs, No Rub and No Gallop
Respiratory: Decreased Breath Sounds (at bases, otherwise clear)
Sternum: Stable
Incision: Clean, Dry, Intact and Dressing Intact
Extremities: Other (+trace edema)
Data Reviewed
-
Lab Results: Results Reviewed
Medications: Active Meds Reviewed
Chest X-Ray: Report Reviewed and Image Reviewed
ECG: Report Reviewed and Image Reviewed
[2023-12-04 06:00] VITALS: BMI 34.9
[2023-12-04] MEDS: TYLENOL 1000 MG PO ×3 (06:25→22:35)
--- NOTE | 2023-12-04 08:07 | PN.DE.MGMTRT ---
Insulin Management
- -
12/04/2023: Diabetes Management F/U:
POD #3, s/p CABG x2, AVR . Pt seen this morning, A/O x3, sitting up in bed, pleasant, offers no complaints. states she is probably going to rehab at d/c from the hosp. Pt was transitioned to SQ insulin last night by CT team. Glucose stable, Received
Levemir 10 units @ HS, no other insulin ordered. FBG 147 this AM.
Will increase Levemir to 12 units @HS. Start NovoLog 4 units AC. Cont low corrective with meals and Farxiga 10mg daily.
Pt reports she has a working meter at home that she purchased off [employer]. Discussed switching to [employer] Glucose monitor since she is new to insulin and supplies will be covered by her insurance. Emphasized need to monitor more often after
discharge.
Will reassess in am if need to switch to combo regimen- Basal insulin with oral diabetes meds.
Diabetes History
- -
Type of Diabetes: 2 requiring insulin
Pre-Admission Diabetes Regimen
12/04/23
03:42
Creatinine 0.7
Lab Results
Hemoglobin A1c 9.2 % (4.0-5.6) H 11/23/23 02:16
Insulin Pump Settings
IP Diabetes Regimen
12/03/23 12/03/23 12/03/23
08:10 10:08 12:30
Glucose
POC Glucose 130 H 129 H 95
12/03/23 12/03/23 12/03/23
13:26 15:13 17:15
Glucose
POC Glucose 156 H 129 H 82
12/03/23 12/03/23 12/04/23
19:18 21:05 03:42
Glucose 147 H
POC Glucose 96 126 H
Meal type: Breakfast
Amount consumed: 50%
Patient Education
[2023-12-04 08:29] LABS: Glucose - Point of Care 118 mg/dl (70-99)
[2023-12-04] MEDS: NOVOLOG FLEXPEN-MODERATE RESISTANCE SC ×2 (08:55→13:31)
--- NOTE | 2023-12-04 09:00 | PTCARENOTE ---
assumed care of pt from previous shift RN, sinus rhythm on tele w 1st degree HB and BBB. + peripheral pulses, no edema noted. Epicardial pacing wires set to AAI 40/6/0.5. Lungs diminished, pox 94-95% on RA. +bs, tolerating PO intake, voids on
bedside commode. Right IJ cordis w swan floated to 50, right radial shalonda leveled and zeroed. Sternal and right leg incisions w surgical glue intact, CT dressing changed. pt worked w PT/OT, returned to bed. Awaiting echo. Plan of care reviewed w the
pt and questions encouraged.
[2023-12-04] MEDS: LOW STRENGTH ASPIRIN 81 MG PO (09:05)
[2023-12-04] MEDS: ENTRESTO 24 MG/26 MG 1 TAB PO ×2 (09:05→19:31)
[2023-12-04] MEDS: BACTROBAN 2% OINTMENT 1 APPLIC NASAL ×2 (09:05→19:31)
[2023-12-04] MEDS: PACERONE 200 MG PO ×3 (09:05→22:22)
[2023-12-04] MEDS: SENOKOT-S 1 TABLET PO ×2 (09:05→19:31)
[2023-12-04] MEDS: NEURONTIN 100 MG PO ×3 (09:05→22:21)
[2023-12-04] MEDS: FARXIGA 10 MG PO (09:05)
[2023-12-04] MEDS: PLAVIX 75 MG PO (09:05)
[2023-12-04] MEDS: DESENEX/MITRAZOL/ZEASORB 1 APPLIC TOPICAL ×2 (09:05→19:31)
[2023-12-04] MEDS: PROTONIX 40 MG PO (09:05)
[2023-12-04] MEDS: NOVOLOG FLEXPEN 4 UNITS SC ×3 (09:06→22:35)
[2023-12-04 09:47] VITALS: BP 93/51
[2023-12-04 10:10] VITALS: BP 93/51; PULSE 75; O2SAT 92
[2023-12-04 10:52] VITALS: BP 93/51; O2SAT 92
[2023-12-04 10:55] VITALS: BP 93/51; PULSE 75; O2SAT 92
--- NOTE | 2023-12-04 11:55 | CARDSERVDEF ---
Echocardiogram with Definity completed after protocol screening completed. Allergies verified.
Patent IV site: Rt hand
IV site flushed with 0.9% NaCl pre and post administration.
Diluted bolus method utilized to enhance visualization of ventricular munoz.
Total volume given: __3.5__ mL
Patient tolerated all procedures well without complications.
--- NOTE | 2023-12-04 12:26 | PTCARENOTE ---
VSS, sinus rhythm maintained on tele, echo completed, milrinone infusing at 0.125mcg/kg/hr as instructed.
[2023-12-04 12:46] VITALS: BMI 34.9
[2023-12-04] MEDS: NOVOLOG FLEXPEN SC (13:31)
[2023-12-04] MEDS: NSS IV (13:32)
--- NOTE | 2023-12-04 13:57 | CM ---
Reviewed chart. Met with Mrs. Puckett to review discharge plans. Reviewed recommendations of some level of rehab. prior to going home. She states she would be willing to consider inpatient rehab. She has selected [facility] or [facility] at [place]. Telephone call to [facility] Liaison to make the referral. Sent referral. Telephone call to [facility]. liaison to make the referral. Sent referral. Await decision from acute rehabs if they can accept.
Bibi states she was just in [facility]. for two weeks. Prior to admission she resides alone in a one story home with four steps to enter. She has a walker and single point cane at home. She was current with [facility]. Medical
work-up in progress. The discharge plan is to go to acute rehab. at [facility] [place] or [facility], if approved for admission when medically stable.
[2023-12-04] MEDS: PRIMACOR 20 MG 100 IV (15:13)
--- NOTE | 2023-12-04 16:20 | W.PN.CARDCBS ---
Addendum entered and electronically signed by Alex Girard MD 12/04/23 16:49:
I saw and examined the patient.
The [employer] COUNSELOR or PA's note was reviewed and I agree with the note.
Comment: General: Well developed, well nourished in NAD.
Neck: Supple, no JVD, HJR, carotids +2 B/L, no bruits bilaterally.
Heart: Non displaced PMI, RRR, no murmurs, No S3, S4, no rubs.
Lungs: Scattered rhonchi
Sternal dressings noted
Extremities: No clubbing, cyanosis or edema bilaterally.
Neuro: Grossly nonfocal, awake, alert and oriented x3.
She is doing amazingly well. She remains in sinus rhythm. Echocardiogram with normalization of ejection fraction with normal AVR and MVR. Continue present management. Eventually resume Eliquis. Milrinone is being weaned off. Discussed with
nursing.
Original Note:
Today's Communication / Plan
-
Eventually resume Eliquis
Milrinone weaning
Impression / Plan
-
Primary Care Physician: Dr. Jessica De La Cruz
Primary Medical Field Representative: Dr. Dion Gastelum of [facility]
Impression:
Acute on chronic HFrEF
CM EF 35-40% by echo 11/23/23
Permanent Afib
2V CAD by cath 11/22/23
Severe Aortic stenosis MG 23mmHg, HOMERO 0.5cm2
Moderate - severe MR
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
s/p CABG x2 (in situ JIMENES to LAD and Ao-RSVG-OM/LPL), SAVR, MVR, LA MAZE, TANJA occlusion 12/01/23
severe high grade L subclavian stenosis and R carotid stenosis 50-69%
HTN
HLD
DM
GERD
Gout
Hyponatremia
ECHO 11/23/23: EF 35 to 40%, global hypokinesis, severely enlarged LA, moderately enlarged RA, mild MS with peak/mean gradients of 10/4 mmHg, moderate eccentric MR, severe with peak/mean gradients 56/35 mmHg, HOMERO 0.75 cm�, no AR, mild UT. New
reduction in EF compared to prior echo
MATTHIAS 11/27/23: EF 40%, mild global hypokinesis with slight worsening in septum, normal RV size with reduced systolic function, severe MR with thin, filamentous, hypermobile density concerning for a vegetation on the anterior mitral valve leaflet.
Echo 12/04/23: EF 50-55% on milrinone at 0.125, peak/mean gradients across the mitral valve are 9/3 mmHg, trace MR,�23 mm bioprosthetic aortic constanza replacement peak/mean gradients across the aortic valve are 21/10 mmHg, trace aortic regurgitation is
seen, mild TR, mildly dilated right ventricle with RV hypokinesis.
Plan:
-Milrinone running at 0.125 mcg/kg/min after Epi stopped 12/02/23 and Dobut stopped 12/04/23
-Weight is up 7 lbs in the last 48 hours. Last dose of Lasix was 60 mg IV x1 on 12/03/23, diuresis pending hypotension
-Echo repeated 12/04/23 noted above.
-On ASA/Plavix/high intensity statin
-LDL 36. Cont atorvastatin 40 mg daily which is new this admission because patient was taking simvastatin 40 mg daily prior to admission
-Patient with h/o permanent Afib on admission. Outpatient dose of Eliquis 5 mg BID on hold post-op, but plan is to eventually resume
-EF 35-40% by echo earlier this admission. EF previously normal at [facility] in 11/2022. CM regimen included Toprol XL 100 mg BID prior to surgery and changed to Lopressor post-op, but doses being held due to hypotension and now on milrinone. Lisinopril
was new this admission and was held pre-op, but then replaced with Entresto 24/26 mg BID and receiving all doses thus far with hold parameters in place. Outpatient dose of spironolactone 25 mg daily on hold post-op. Farxiga 10 mg daily was newly
this admission.
HPI: 73-year-old woman with a past medical history of hypertension, insulin-dependent diabetes, gout, prior cellulitis, obesity, and severe aortic stenosis.� Echocardiography performed in November 2022 showed preserved LV function with a mean gradient
of 47 mmHg and eccentric mild to moderate mitral regurgitation.� She presented to the [facility] emergency room in August with congestive heart failure with new A-fib and rapid ventricular response.� She was rate controlled and diuresed
and discharged.� Attempts to restore normal sinus rhythm were unsuccessful and she was readmitted with recurrent heart failure on October 23.� She was again diuresed over a 2-week hospitalization followed by 1 week in rehab.� Cardioversion on
amiodarone was reattempted but she went back into atrial fibrillation.� Since being home she has felt better but is still not back to her baseline.
Progress Note - Medical Field Representative
Subjective
Date of Service: December 04, 2023
No SOB
Objective
Labs:
12/04/23 03:42
12/04/23 03:42
Labs
Hgb 8.6 g/dL (12.0-16.0) L 12/04/23 03:42
Hct 27.3 % (37.0-47.0) L 12/04/23 03:42
Plt Count 125 10^3/uL (130-400) L 12/04/23 03:42
PT 21.8 Sec (11.4-14.6) H 12/01/23 14:10
INR 1.92 12/01/23 14:10
APTT 29.3 Sec (23.4-35.0) 12/01/23 14:10
Sodium 128 mmol/L (135-145) L 12/04/23 03:42
Potassium 4.6 mmol/L (3.5-5.1) 12/04/23 03:42
BUN 40 mg/dl (7-17) H 12/04/23 03:42
Creatinine 0.7 mg/dL (0.6-1.0) 03/18/24 03:42
Glucose 147 mg/dl (70-99) H 12/04/23 03:42
Vital Signs and I&O:
Vital Signs
Temp Pulse Resp BP Pulse Ox
98.4 F 74 16 93/51 96
12/04/23 15:21 12/04/23 15:00 12/04/23 15:21 12/04/23 09:47 12/04/23 15:21
Vital Signs
Temp Pulse Resp BP Pulse Ox
98.4 F 74 16 93/51 96
12/04/23 15:21 12/04/23 15:00 12/04/23 15:21 12/04/23 09:47 12/04/23 15:21
Intake & Output
12/02/23 12/03/23 12/04/23 12/05/23
06:59 06:59 06:59 06:59
Intake Total 1657.7 / 1657.7 1692.2 / 1692.2 1706.6 / 1706.6 254.0 / 254.0
Output Total 1330 / 1330 1640 / 1640 1750 / 1750 350 / 350
Balance 327.7 / 327.7 52.2 / 52.2 -43.4 / -43.4 -96.0 / -96.0
Physical Exam
Physical Exam
General: NAD
HEENT: EOMI
Heart: Reg
Lungs: No audible wheeze
Extremities: No edema B/L LE
Neuro: Grossly nonfocal
--- NOTE | 2023-12-04 16:42 | PTCARENOTE ---
sinus rhythm maintained on tele, VSS, milrinone maintained at 0.125mcg/kg/hr. pt sitting in chair w family at bedside.
[2023-12-04] MEDS: LIPITOR 40 MG PO (18:05)
[2023-12-04] MEDS: NOVOLOG FLEXPEN-MODERATE RESISTANCE 3 UNITS SC (18:05)
[2023-12-04 18:07] LABS: Glucose - Point of Care 200 mg/dl (70-99)
--- NOTE | 2023-12-04 19:30 | PTCARENOTE ---
assumed care of pt from previous RN. pt A&Ox4, resting in chair at time of assessment. R IJ cordis w/ swan floated to 50cm. R radial a-line. all lines leveled, zeroed, and flushed. SR w/ 1st degree AVB on tele-monitor, HR 70s. temp epicardial A/V
wires w/ backup settings AAI 40/6/0.5. POX 94% on RA. lungs clear to auscultation. no c/o N/V. pt voiding bradley colored urine on BSC. all surgical sites stable. PIV intact. see worklist for complete nursing assessment, interventions, VS, I&Os, and
gtt titrations.
[2023-12-04] MEDS: LEVEMIR 0.119999999999999996 UNITS SC (22:22)
[2023-12-04 22:23] LABS: Glucose - Point of Care 280 mg/dl (70-99)
[2023-12-05] VITALS (9 sets, daily range): BP systolic 107–129; BP diastolic 40–98; PULSE 70–73; O2SAT 90; BMI 35.5
--- NOTE | 2023-12-05 00:17 | PTCARENOTE ---
Addendum entered by Margarita Combs RN 12/05/23 00:33:
POX 88%. pt placed on 1 L NC. POX 93-94%.
Original Note:
assessment remains unchanged. VSS. SR w/ 1st degree AVB on tele-monitor. HR 70s. no c/o pain at this time.
[2023-12-05 03:49] LABS: Mixed Venous O2 Saturation 60.3 %
[2023-12-05 04:00] LABS: Hematocrit 29.2 % (37.0-47.0); Hemoglobin 9.4 g/dL (12.0-16.0); Mean Corp Hgb Conc. 32.2 g/dL (33.0-37.0); Mean Corpuscular Hgb 30.2 pg (27.0-31.0); Mean Corpuscular Volume 93.9 fL (81.0-99.0); Mean Platelet Volume 10.6 fL (7.4-10.4); Platelet Count 170 10^3/uL (130-400); Red Blood Cell Count 3.11 10^6/uL (4.20-5.40); Red Cell Dist. Width 15.1 % (11.5-14.5); White Blood Cell Count 10.2 10^3/uL (4.8-10.8)
--- NOTE | 2023-12-05 04:00 | PTCARENOTE ---
assessment remains unchanged. VSS. SR on tele-monitor, 1st degree AVB. POX 98% on 2 L NC. AM labs collected and sent.
[2023-12-05 04:26] LABS: Blood Urea Nitrogen 37 mg/dl (7-17); Calcium 8.6 mg/dl (8.4-10.2); Carbon Dioxide 22 mmol/L (22-30); Chloride 99 mmol/L (98-107); Estimated Creatinine Clearance 70 ml/min; Glucose 199 mg/dl (70-99); Magnesium 2.2 mg/dl (1.6-2.3); Potassium 4.6 mmol/L (3.5-5.1); Sodium 129 mmol/L (135-145); eGFR > 60.00
--- NOTE | 2023-12-05 05:09 | W.PN.CT ---
Today's Communication / Plan
-
Plan:
-No major issues overnight. Neurologically intact
-Milrinone weaned to 0.125 mcg/kg/min
-Last CI 2.0, SVO2 is 60.3%. 24hrs U/O 1050 mL
-H/H stable @ 9.4/29.2, likely hemodilutional. Wt is up 12 lbs per yesterday's wt., check wt today
-Na 129, likely secondary to hypervolemia, will cont. diuresis as bp permits. May need placement of PureWick catheter to help with diuresis given mobility issues
-Slow wean of Milrinone as tolerated
-Will d/c swan and a-line once able to wean off inotrope
-Transfer to tele phase once able to de-line
-Diabetes education/management following given hgb A1C of 9.2
-Maintain cordis
-Maintain temporary pacer wires (will cut prior to d/c home)
-Cont. current meds (ASA, Plavix, Lipitor; Lasix if BP permits, Amiodarone, holding BB while on Milrinone; will likely replace Plavix with Eliquis on POD#4)
-Encourage use of IS
-Wean off of O2 as tolerated
-OOB into chair/Ambulate, PT/OT following
-Physiatry evaluation for [facility] placement
-Acute rehab placement likely in 2-3 days
Assessment / Plan
-
Assessment:
-S/P Aortic Valve Replacement (23mm Inspiris)/ Chordal Sparing Mitral Valve Replacement (29mm Mitris) with bovine patch of the annulus at P1 into P2/CABG x 2 (In situ JIMENES to LAD and Ao-RSVG-OM/LPL)/Left atrial MAZE/Left atrial appendage occlusion
(35mm Clip), by Dr. Najera,
11/30/, pod#4
-Severe aortic valve stenosis
-Severe mitral valve insufficiency secondary to degeneration with mixed pathology heavy calcification of the leaflets into the annulus
-Multivessel coronary disease
-New onset atrial fibrillation with rapid ventricular response on anticoagulation S/P unsuccessful cardioversion x 2
-Moderate pulmonary hypertension with PA systolics in the 50s to 60s
-LVEF 40%; postop 55%
-Acute on chronic systolic CHF
-HTN
-T2DM (hgb A1C 9.2)
-Hyperlipidemia
-Class 1 obesity (BMI 32.5)
-GERD
-Neck pain S/p C4-5 laminectomy
-Spinal stenosis/Chronic back pain with ambulatory dysfunction S/P uses cane
-S/P B/L TKR
-S/P b/l Cataracts
-Hx uterine ca S/p HERIBERTO (no chemo/XRT)
-Acute postop blood loss/Anemia (transfused 1u PRBC)
-Acute postop atelectasis/pleural effusion
-Preop and postop cardiogenic shock (requiring inotropic support with dobutamine and epinephrine)
-Acute postop hypovolemia with subsequent hypervolemia
-Pre and postop hyponatremia, 128
Discussed patient care with: Cardiology, Nursing, Respiratory Therapy, Pharmacy and Care Team
Subjective
Procedure
S/P Aortic Valve Replacement (23mm Inspiris)/ Chordal Sparing Mitral Valve Replacement (29mm Mitris) with bovine patch of the annulus at P1 into P2/CABG x 2 (In situ JIMENES to LAD and Ao-RSVG-OM/LPL)/Left atrial MAZE/Left atrial appendage occlusion
(35mm Clip), by Dr. Najera
-
Date of Service: December 05, 2023
Pt c/o mild incisional pain, otherwise feels well
Objective Data
-
Lab Results
12/05/23 03:41
12/05/23 03:41
PT 21.8 Sec (11.4-14.6) H 12/01/23 14:10
INR 1.92 12/01/23 14:10
APTT 29.3 Sec (23.4-35.0) 12/01/23 14:10
Vital Signs
Vital Signs
Temp Pulse Resp BP Pulse Ox
97.5 F 68 21 107/73 98
12/05/23 03:00 12/05/23 04:00 12/05/23 04:00 12/05/23 00:25 12/05/23 04:00
CT Intake/Output/Weight
12/04/23 12/04/23 12/05/23
06:59 18:59 06:59
Intake Total 475.3 / 1706.6 349.6 / 607.6 258.0 / 607.6
Output Total 650 / 1750 350 / 750 400 / 750
Balance -174.7 / -43.4 -0.4 / -142.4 -142.0 / -142.4
SaO2: 98 (RA)
Physical Exam
-
General: Awake, Oriented and AOx3
Cardiovascular: Regular rate & rhythm, No Murmurs, No Rub and No Gallop
Respiratory: Decreased Breath Sounds (at bases, otherwise clear)
Sternum: Stable
Incision: Clean, Dry and Intact
Extremities: Other (+trace edema)
Data Reviewed
-
Lab Results: Results Reviewed
Medications: Active Meds Reviewed
Chest X-Ray: Report Reviewed and Image Reviewed
ECG: Report Reviewed and Image Reviewed
[2023-12-05] MEDS: TYLENOL 1000 MG PO ×3 (06:46→22:42)
[2023-12-05 08:29] LABS: Mixed Venous O2 Saturation 64.4 %
[2023-12-05 08:51] LABS: Glucose - Point of Care 211 mg/dl (70-99)
--- NOTE | 2023-12-05 09:30 | PTCARENOTE ---
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 NSR w/ectopy via cm. Milrinone infusing, d/c'd as ordered. RIJ Cordis/[place]-Jael catheter, R radial arterial lines present - d/c'd as ordered, patient tolerated well.
Epicardial A+V pacing wires, to pulse generator. All procedural sites stable. Patient updated to plan of care for the day, in agreement. Assisted oob to chair, standing scale weight obtained. Ambulated robles w/assist PT/OT. See work list for full
assessment and interventions performed.
[2023-12-05] MEDS: SENOKOT-S 1 TABLET PO ×2 (09:41→21:11)
[2023-12-05] MEDS: ELIQUIS 5 MG PO ×2 (09:41→21:11)
[2023-12-05] MEDS: PACERONE 200 MG PO ×3 (09:41→22:42)
[2023-12-05] MEDS: NEURONTIN 100 MG PO ×3 (09:41→22:42)
[2023-12-05] MEDS: FARXIGA 10 MG PO (09:41)
[2023-12-05] MEDS: PROTONIX 40 MG PO (09:41)
[2023-12-05] MEDS: LOW STRENGTH ASPIRIN 81 MG PO (09:41)
[2023-12-05] MEDS: DESENEX/MITRAZOL/ZEASORB 1 APPLIC TOPICAL ×2 (09:42→21:11)
[2023-12-05] MEDS: ENTRESTO 24 MG/26 MG 1 TAB PO ×2 (09:42→21:16)
[2023-12-05] MEDS: BACTROBAN 2% OINTMENT 1 APPLIC NASAL (09:42)
[2023-12-05] MEDS: NOVOLOG FLEXPEN 4 UNITS SC ×3 (09:42→18:08)
[2023-12-05] MEDS: NOVOLOG FLEXPEN-MODERATE RESISTANCE 3 UNITS SC (09:43)
--- NOTE | 2023-12-05 09:50 | PN.DE.MGMTRT ---
Insulin Management
- -
12/05/2023: Diabetes Management F/U:
POD #4, s/p CABG x2, AVR . Pt seen this morning, A/O x3, sitting up in bed, pleasant, offers no complaints. Pt was transitioned to SQ insulin last night by CT team. Glucose stable, Received Levemir 10 units @ HS, no other insulin ordered. FBG 147
this AM.
Levemir was increased to 12 units @HS, fasting glucose 199. NovoLog 4 units AC. Cont low corrective with meals and Farxiga 10mg daily.
Patient was using Metrix meter and purchasing strips from [employer], last purchased strips 11/2022. Provided and instructed on use of Contour Next glucose monitor and entered RX for strips and lancets in ambulatory orders. Also entered RX for Lantus.
Patient will use Levemir till gone then switch to lantus. Provided diabetes education booklet and underlined times to test, target glucose ranges, times to take insulin as well as types of insulin. Discussed switch to lantus, she is agreeable.
Diabetes History
- -
Type of Diabetes: 2 requiring insulin
Pre-Admission Diabetes Regimen
12/05/23
03:41
Creatinine 0.7
Lab Results
Hemoglobin A1c 9.2 % (4.0-5.6) H 11/23/23 02:16
Insulin Pump Settings
IP Diabetes Regimen
12/04/23 12/04/23 12/05/23
18:04 22:21 03:41
Glucose 199 H
POC Glucose 200 H 280 H
12/05/23
08:49
Glucose
POC Glucose 211 H
Meal type: Breakfast
Patient Education
[2023-12-05] MEDS: ROXICODONE 5 MG PO (11:23)
--- NOTE | 2023-12-05 12:20 | PTCARENOTE ---
VS obtained, assessment stable. Patient resting comfortably oob in chair.
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
[2023-12-05 13:22] LABS: Glucose - Point of Care 171 mg/dl (70-99)
[2023-12-05] MEDS: NOVOLOG FLEXPEN-MODERATE RESISTANCE 1 UNITS SC ×2 (13:22→18:09)
[2023-12-05] MEDS: NSS 500 IV (13:23)
[2023-12-05] MEDS: FLEXERIL 5 MG PO (16:05)
[2023-12-05] MEDS: LASIX 40 MG IV (16:06)
--- NOTE | 2023-12-05 16:20 | PTCARENOTE ---
VS obtained, assessment unchanged. Patient remains oob in chair, resting comfortably.
[2023-12-05] MEDS: LIPITOR 40 MG PO (18:08)
[2023-12-05 18:11] LABS: Glucose - Point of Care 163 mg/dl (70-99)
[2023-12-05 22:42] LABS: Glucose - Point of Care 185 mg/dl (70-99)
[2023-12-05] MEDS: LEVEMIR 0.119999999999999996 UNITS SC (22:42)
[2023-12-06] VITALS (7 sets, daily range): BP systolic 102–149; BP diastolic 53–83; BMI 35.9
--- NOTE | 2023-12-06 00:17 | PTCARENOTE ---
assumed care of patient at the change of shift from CVICU. patient AAOx3. denies any pain. SR with a first degree AVB and BBB 60s-70s. PVCs noted. bp stable. denies any lightheadedness/dizziness. denies palpitations. A/V wires insulated. pacer box
at the bedside. 94% on RA. + productive cough at times per patient. IS encouraged. surgical incisions intact. reviewed plan of care with patient and verbalized understanding. oob x1-2 assist with the rolling walker. educated patient to inform RN
with any changes. call nolen within reach. calls appropriately.
[2023-12-06] MEDS: MILK OF MAGNESIA 30 ML PO (05:00)
[2023-12-06] MEDS: TYLENOL 1000 MG PO ×3 (05:01→21:54)
[2023-12-06 05:08] LABS: Hematocrit 32.7 % (37.0-47.0); Hemoglobin 10.2 g/dL (12.0-16.0); Mean Corp Hgb Conc. 31.2 g/dL (33.0-37.0); Mean Corpuscular Hgb 29.6 pg (27.0-31.0); Mean Corpuscular Volume 94.8 fL (81.0-99.0); Mean Platelet Volume 9.9 fL (7.4-10.4); Platelet Count 222 10^3/uL (130-400); Red Blood Cell Count 3.45 10^6/uL (4.20-5.40); Red Cell Dist. Width 15.1 % (11.5-14.5); White Blood Cell Count 9.9 10^3/uL (4.8-10.8)
[2023-12-06 05:37] LABS: Blood Urea Nitrogen 40 mg/dl (7-17); Calcium 9.1 mg/dl (8.4-10.2); Carbon Dioxide 22 mmol/L (22-30); Chloride 98 mmol/L (98-107); Estimated Creatinine Clearance 62 ml/min; Glucose 160 mg/dl (70-99); Magnesium 2.2 mg/dl (1.6-2.3); Sodium 129 mmol/L (135-145); eGFR > 60.00
[2023-12-06 05:44] LABS: Potassium 4.8 mmol/L (3.5-5.1)
--- NOTE | 2023-12-06 06:52 | W.PN.CT ---
Documented by User: Steve Roque PA-C 12/06/23 08:16
Today's Communication / Plan
-
Plan:
-No major issues overnight. Neurologically intact
-Milrinone weaned off yesterday 12/05/23. [place] and a-line d/c'd on 12/05/23
-Off all drips
-Na 129, likely secondary to hypervolemia, will cont. diuresis as bp permits
-Diabetes education/management following given hgb A1C of 9.2
-Maintain temporary pacer wires (will cut prior to d/c home)
-Cont. current meds (ASA, Eliquis, Lipitor, Amiodarone, Entresto, Farxiga, perhaps low dose Toprol XL today if BP permits)
-Encourage use of IS
-Wean off of O2 as tolerated
-OOB into chair/Ambulate, PT/OT following
-Physiatry evaluation for [facility] placement
-Acute rehab placement likely later today vs tomorrow
Assessment / Plan
-
Assessment:
-S/P Aortic Valve Replacement (23mm Inspiris)/ Chordal Sparing Mitral Valve Replacement (29mm Mitris) with bovine patch of the annulus at P1 into P2/CABG x 2 (In situ JIMENES to LAD and Ao-RSVG-OM/LPL)/Left atrial MAZE/Left atrial appendage occlusion
(35mm Clip), by Dr. Najera,
12/01/23, pod#5
-Severe aortic valve stenosis
-Severe mitral valve insufficiency secondary to degeneration with mixed pathology heavy calcification of the leaflets into the annulus
-Multivessel coronary disease
-New onset atrial fibrillation with rapid ventricular response on anticoagulation S/P unsuccessful cardioversion x 2
-Moderate pulmonary hypertension with PA systolics in the 50s to 60s
-LVEF 40%; postop 55%
-Acute on chronic systolic CHF
-HTN
-T2DM (hgb A1C 9.2)
-Hyperlipidemia
-Class 1 obesity (BMI 32.5)
-GERD
-Neck pain S/p C4-5 laminectomy
-Spinal stenosis/Chronic back pain with ambulatory dysfunction S/P uses cane
-S/P B/L TKR
-S/P b/l Cataracts
-Hx uterine ca S/p HERIBERTO (no chemo/XRT)
-Acute postop blood loss/Anemia (transfused 1u PRBC)
-Acute postop atelectasis/pleural effusion
-Preop and postop cardiogenic shock (requiring inotropic support with dobutamine and epinephrine)
-Acute postop hypovolemia with subsequent hypervolemia
-Pre and postop hyponatremia, 128
Discussed patient care with: Cardiology, Nursing, Respiratory Therapy, Pharmacy and Care Team
Subjective
Procedure
S/P Aortic Valve Replacement (23mm Inspiris)/ Chordal Sparing Mitral Valve Replacement (29mm Mitris) with bovine patch of the annulus at P1 into P2/CABG x 2 (In situ JIMENES to LAD and Ao-RSVG-OM/LPL)/Left atrial MAZE/Left atrial appendage occlusion
(35mm Clip), by Dr. Najera
-
Date of Service: December 06, 2023
Objective Data
-
Lab Results
12/06/23 04:50
12/06/23 04:50
PT 21.8 Sec (11.4-14.6) H 12/01/23 14:10
INR 1.92 12/01/23 14:10
APTT 29.3 Sec (23.4-35.0) 12/01/23 14:10
Vital Signs
Vital Signs
Temp Pulse Resp BP Pulse Ox
97.7 F 68 18 149/66 92
12/06/23 03:15 12/06/23 05:10 12/06/23 03:15 12/06/23 04:33 12/06/23 03:15
CT Intake/Output/Weight
12/05/23 12/05/23 12/06/23
06:59 18:59 06:59
Intake Total 333.6 / 706.0 632.8 / 872.8 240 / 872.8
Output Total 400 / 750 875 / 1125 250 / 1125
Balance -66.4 / -44.0 -242.2 / -252.2 -10 / -252.2
SaO2: 92 (RA)
Physical Exam
-
General: Awake, Oriented and AOx3
Cardiovascular: Regular rate & rhythm, No Murmurs, No Rub and No Gallop
Respiratory: Decreased Breath Sounds
Sternum: Stable
Incision: Clean, Dry, Intact and Dressing Intact
Extremities: Edema +1
Data Reviewed
-
Lab Results: Results Reviewed
Medications: Active Meds Reviewed
Chest X-Ray: Report Reviewed and Image Reviewed
ECG: Report Reviewed and Image Reviewed

Documented by User: [email or web address] Ray 12/06/23 11:32
Assessment / Plan
-
Assessment:
-S/P Aortic Valve Replacement (23mm Inspiris)/ Chordal Sparing Mitral Valve Replacement (29mm Mitris) with bovine patch of the annulus at P1 into P2/CABG x 2 (In situ JIMENES to LAD and Ao-RSVG-OM/LPL)/Left atrial MAZE/Left atrial appendage occlusion
(35mm Clip), by Dr. Najera,
12/01/23, pod#5
-Severe aortic valve stenosis
-Severe mitral valve insufficiency secondary to degeneration with mixed pathology heavy calcification of the leaflets into the annulus
-Multivessel coronary disease
-New onset atrial fibrillation with rapid ventricular response on anticoagulation S/P unsuccessful cardioversion x 2
-Moderate pulmonary hypertension with PA systolics in the 50s to 60s
-LVEF 40%; postop 55%
-Acute on chronic systolic CHF
-HTN
-T2DM (hgb A1C 9.2)
-Hyperlipidemia
-Class 1 obesity (BMI 32.5)
-GERD
-Neck pain S/p C4-5 laminectomy
-Spinal stenosis/Chronic back pain with ambulatory dysfunction S/P uses cane
-S/P B/L TKR
-S/P b/l Cataracts
-Hx uterine ca S/p HERIBERTO (no chemo/XRT)
-Acute postop blood loss/Anemia (transfused 1u PRBC)
-Acute postop atelectasis/pleural effusion
-Preop and postop cardiogenic shock (requiring inotropic support with dobutamine and epinephrine)
-Acute postop pulmonary insufficiency
-Pre and postop hyponatremia, 128
--- NOTE | 2023-12-06 08:00 | PN.DE.MGMTRT ---
Insulin Management
- -
12/06/2023: Diabetes Management F/U:
POD #5, s/p CABG x2, AVR . Pt seen this morning, awakened easily, alert and oriented. Glucose stable.
Received Levemir 12 units @ HS, FBG 160 this AM. Receiving NovoLog 4 units AC, glucose 163 to 185 @ HS. Will cont low corrective with meals and Farxiga 10mg daily.
Patient has been given new glucose monitor, Contour Next, RX for test strips and lancets in ambulatory orders.
Diabetes History
- -
Type of Diabetes: 2 requiring insulin
Pre-Admission Diabetes Regimen
12/06/23
04:50
Creatinine 0.8
Lab Results
Hemoglobin A1c 9.2 % (4.0-5.6) H 11/23/23 02:16
Insulin Pump Settings
IP Diabetes Regimen
12/05/23 12/05/23 12/05/23
08:49 13:21 18:07
Glucose
POC Glucose 211 H 171 H 163 H
12/05/23 12/06/23
22:41 04:50
Glucose 160 H
POC Glucose 185 H
Meal type: Dinner
Meal type: Lunch
Meal type: Breakfast
Amount consumed: 90%
Amount consumed: 90%
Amount consumed: 85%
Patient Education
[2023-12-06 08:32] LABS: Glucose - Point of Care 151 mg/dl (70-99)
[2023-12-06] MEDS: LASIX 40 MG IV (08:33)
[2023-12-06] MEDS: ELIQUIS 5 MG PO ×2 (08:33→19:08)
[2023-12-06] MEDS: LOW STRENGTH ASPIRIN 81 MG PO (08:34)
[2023-12-06] MEDS: FARXIGA 10 MG PO (08:34)
[2023-12-06] MEDS: ENTRESTO 24 MG/26 MG 1 TAB PO ×2 (08:34→19:08)
[2023-12-06] MEDS: FLUSH (NSS) 2 FLUSH IV (08:35)
[2023-12-06] MEDS: SENOKOT-S 1 TABLET PO ×2 (08:35→19:08)
[2023-12-06] MEDS: NEURONTIN 100 MG PO ×3 (08:35→21:54)
[2023-12-06] MEDS: PROTONIX 40 MG PO (08:35)
[2023-12-06] MEDS: PACERONE 200 MG PO ×3 (08:35→21:53)
[2023-12-06] MEDS: NOVOLOG FLEXPEN-MODERATE RESISTANCE 1 UNITS SC ×2 (09:38→13:22)
--- NOTE | 2023-12-06 09:38 | W.PN.CARDCBS ---
Addendum entered and electronically signed by Alex Girard MD 12/06/23 13:01:
I saw and examined the patient.
The ORTHOPEDIC SURGEON or PA's note was reviewed and I agree with the note.
Comment: General: Well developed, well nourished in NAD.
Neck: Supple, no JVD, HJR, carotids +2 B/L, no bruits bilaterally.
Heart: Non displaced PMI, RRR, no murmurs, No S3, S4, no rubs.
Lungs: Scattered rhonchi
Sternal dressings noted
Extremities: No clubbing, cyanosis or edema bilaterally.
Neuro: Grossly nonfocal, awake, alert and oriented x3.
She continues to do very well. Remains in sinus rhythm
Weight is up approximately 17 pounds since the OR and there may be some element of CHF
She got a dose of IV Lasix on 12/04
Of note sodium is 129 and will need to be followed
Original Note:
Today's Communication / Plan
-
Diurese as able due to hypotension
Impression / Plan
-
Primary Care Physician: Dr. Jessica De La Cruz
Primary Claims Adjuster Supervisor: Dr. Dion Gastelum of [facility]
Impression:
Acute on chronic HFrEF
CM EF 35-40% by echo 11/23/23
Permanent Afib
2V CAD by cath 11/22/23
Severe Aortic stenosis MG 23mmHg, HOMERO 0.5cm2
Moderate - severe MR
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
s/p CABG x2 (in situ JIMENES to LAD and Ao-RSVG-OM/LPL), SAVR, MVR, LA MAZE, TANJA occlusion 12/01/23
severe high grade L subclavian stenosis and R carotid stenosis 50-69%
HTN
HLD
DM
GERD
Gout
Hyponatremia
cRBBB
ECHO 11/23/23: EF 35 to 40%, global hypokinesis, severely enlarged LA, moderately enlarged RA, mild MS with peak/mean gradients of 10/4 mmHg, moderate eccentric MR, severe with peak/mean gradients 56/35 mmHg, HOMERO 0.75 cm�, no AR, mild MD. New
reduction in EF compared to prior echo
MATTHIAS 11/27/23: EF 40%, mild global hypokinesis with slight worsening in septum, normal RV size with reduced systolic function, severe MR with thin, filamentous, hypermobile density concerning for a vegetation on the anterior mitral valve leaflet.
Echo 12/04/23: EF 50-55% on milrinone at 0.125, peak/mean gradients across the mitral valve are 9/3 mmHg, trace MR,�23 mm bioprosthetic aortic constanza replacement peak/mean gradients across the aortic valve are 21/10 mmHg, trace aortic regurgitation is
seen, mild TR, mildly dilated right ventricle with RV hypokinesis.
Plan:
-Patient given Lasix 40 mg IV x1 on 12/05/23 evening and again 12/06/23 AM. She reports increased urine output. Stable on RA. Weight overall up to 183 lbs and was as low as 166 lbs on 12/01/23. Ongoing efforts with diuresis as BP tolerates
-Milrinone gtt weaned to off 12/05/23 AM. Epi stopped 12/02/23 and Dobut stopped 12/04/23
-EF 35-40% by echo earlier this admission. EF previously normal at [facility] in 11/2022. Then EF 50-55% while on milrinone by echo 12/04/23
-CM regimen included Toprol XL 100 mg BID prior to surgery and changed to Lopressor post-op, but doses being held due to hypotension. Lisinopril was new this admission, but then replaced with Entresto 24/26 mg BID and receiving all doses thus far
with hold parameters in place. Outpatient dose of spironolactone 25 mg daily on hold post-op. Farxiga 10 mg daily was newly this admission.
-Eliquis 5 mg BID restarted 12/05/23. Aspirin continued. Plavix stopped.
-LDL 36. Cont atorvastatin 40 mg daily which is new this admission, patient was taking simvastatin 40 mg daily prior to admission
-Patient with h/o permanent Afib on admission. ECG 12/06/23 reviewed by me, she has cRBBB, long first degree AV block and PVCs
HPI: 73-year-old woman with a past medical history of hypertension, insulin-dependent diabetes, gout, prior cellulitis, obesity, and severe aortic stenosis.� Echocardiography performed in November 2022 showed preserved LV function with a mean gradient
of 47 mmHg and eccentric mild to moderate mitral regurgitation.� She presented to the [facility] emergency room in August with congestive heart failure with new A-fib and rapid ventricular response.� She was rate controlled and diuresed
and discharged.� Attempts to restore normal sinus rhythm were unsuccessful and she was readmitted with recurrent heart failure on October 23.� She was again diuresed over a 2-week hospitalization followed by 1 week in rehab.� Cardioversion on
amiodarone was reattempted but she went back into atrial fibrillation.� Since being home she has felt better but is still not back to her baseline.
Progress Note - Claims Adjuster Supervisor
Subjective
Date of Service: December 06, 2023
She feels well, no palpitations
Objective
Labs:
12/06/23 04:50
12/06/23 04:50
Labs
Hgb 10.2 g/dL (12.0-16.0) L 12/06/23 04:50
Hct 32.7 % (37.0-47.0) L 12/06/23 04:50
Plt Count 222 10^3/uL (130-400) D 12/06/23 04:50
PT 21.8 Sec (11.4-14.6) H 12/01/23 14:10
INR 1.92 12/01/23 14:10
APTT 29.3 Sec (23.4-35.0) 12/01/23 14:10
Sodium 129 mmol/L (135-145) L 12/06/23 04:50
Potassium 4.8 mmol/L (3.5-5.1) 12/06/23 04:50
BUN 40 mg/dl (7-17) H 12/06/23 04:50
Creatinine 0.8 mg/dL (0.6-1.0) 12/06/23 04:50
Glucose 160 mg/dl (70-99) H 12/06/23 04:50
Vital Signs and I&O:
Vital Signs
Temp Pulse Resp BP Pulse Ox
97.8 F 59 20 116/56 98
12/06/23 08:25 12/06/23 09:20 12/06/23 08:25 12/06/23 08:28 12/06/23 08:30
Vital Signs
Temp Pulse Resp BP Pulse Ox
97.8 F 59 20 116/56 98
12/06/23 08:25 12/06/23 09:20 12/06/23 08:25 12/06/23 08:28 12/06/23 08:30
Intake & Output
12/04/23 12/05/23 12/06/23 12/07/23
06:59 06:59 06:59 06:59
Intake Total 1706.6 / 1706.6 683.2 / 706.0 872.8 / 872.8
Output Total 1750 / 1750 750 / 750 1125 / 1125
Balance -43.4 / -43.4 -66.8 / -44.0 -252.2 / -252.2
Physical Exam
Physical Exam
General: NAD
HEENT: EOMI
Heart: Reg with ectopy
Lungs: No audible wheeze
Extremities: +1 edema B/L LE
Neuro: Grossly nonfocal
[2023-12-06] MEDS: NOVOLOG FLEXPEN 4 UNITS SC ×3 (09:39→18:04)
[2023-12-06] MEDS: DESENEX/MITRAZOL/ZEASORB 1 APPLIC TOPICAL ×2 (09:39→19:08)
--- NOTE | 2023-12-06 10:54 | CM ---
Chart reviewed. Patient is independent of ADLS, lives alone in a [address], [address] [facility], ambulates with a walker and a SPC. Patient is current with [facility]. PT/OT recommending Acute Rehab. Patient would like to go to [place] or [facility].
Referrals placed. Waiting on bed availability. Plan is for the patient to go to Acute Rehab when medically stable for discharge. CM to follow
--- NOTE | 2023-12-06 11:16 | PN.CDI ---
CDI
- -
CDI:
Physician Documentation Request
Admit Date: 11/22/23 12:00
Dear Cardiothoracic Surgery,
Patient post-op CABG x2, aortic valve replacement, mitral valve replacement, MAZE and left atrial appendage occlusion on 11/30.
12/01 PCN: 'soO2 is 92% on 1L'
12/02 PCN: 'Attempted to wean patient to RA. Pulse Ox dipped to 88-89%. Resumed 1L via NC pulse ox improved to 92-93%. '
12/03 PCN: 'pox 94-95% on RA.'
12/04 PCN: 'POX 88%. pt placed on 1 L NC. POX 93-94%.'
Selected Entries
12/02/23
22:00 12/03/23
09:00 12/03/23
23:00
Nasal Cannula flow liters per minute 1 1 2
12/04/23
03:00 12/04/23
06:00 12/06/23
08:25
Nasal Cannula flow liters per minute 2 1 2
Clarify which of the following accurately represents the patient's respiratory status following surgery:
Acute post-operative pulmonary insufficiency
Hypoxia
Other
Additional information for Pulmonary Insufficiency:
Consider when patients require buttermaker oxygen therapy postoperatively
Weaned off oxygen initially then requiring supplemental oxygen
No other definitive diagnosis to support the need for oxygen (COPD exac, CHF etc.)
Unable to wean from vent
When criteria for respiratory failure not present
May extend stay or require additional resources; may need home O2
Use of terms such as suspected, likely, concern for, or probable (associated with a specific diagnosis that is being evaluated, monitored, or treated as if it exists) are acceptable and can be coded in the inpatient setting, when documented at the
time of discharge.
Thank you,
Tasha Mckeon RN, BSN
CDI Specialist
Available via [place] text
Please use your independent medical judgment in providing your response.
[2023-12-06] MEDS: BUMEX 2 MG PO (12:09)
--- NOTE | 2023-12-06 12:14 | PTCARENOTE ---
Received patient this morning resting in bed, stated she had a good night. Given IV lasix as ordered and patient assisted oob to the commode. Patient states she has had more success with bumex rather than lasix. Seen by cardiology and dose of PO
bumex given this afternoon as ordered. Patient has been constipated, received MOM from prior shift and passed small formed bowel movement. Sitting oob in the chair now visiting with a friend.
[2023-12-06 13:21] LABS: Glucose - Point of Care 159 mg/dl (70-99)
[2023-12-06] MEDS: NSS IV (14:04)
[2023-12-06 18:01] LABS: Glucose - Point of Care 116 mg/dl (70-99)
[2023-12-06] MEDS: ROXICODONE 5 MG PO (18:02)
[2023-12-06] MEDS: LIPITOR 40 MG PO (18:03)
[2023-12-06] MEDS: NOVOLOG FLEXPEN-MODERATE RESISTANCE SC (18:04)
[2023-12-06 21:26] LABS: Glucose - Point of Care 168 mg/dl (70-99)
[2023-12-06] MEDS: LEVEMIR 0.119999999999999996 UNITS SC (21:53)
[2023-12-07] VITALS (9 sets, daily range): BP systolic 88–155; BP diastolic 60–138; PULSE 75; BMI 35.3
--- NOTE | 2023-12-07 04:56 | PTCARENOTE ---
Patient requires one assist and uses RW. Denies any dizziness. Sternal precautions maintained. Tele remains SR w/ 1st AV block , BBBC, and occasional PVCs. VSS. Patient sating 89% RA, pt mouth breather. Instructed patient to perform deep breathing
exercises. IS up to 750ml, poor effort. Applied 2L of O2, patient currently sating 95%. Patient aware of POC, call nolen in reach.
--- NOTE | 2023-12-07 05:35 | W.PN.CT ---
Today's Communication / Plan
-
-pod #6
-doing well, no issues overnight, no complaints
-fingers appeared cyanotic last night (hx Raynaud's)
-diuresed with 40 iv Lasix followed by 2 mg po Bumex on 12/05 - UO 800/3800 in 12/24 hrs
-follow Na - on fluid restriction
-BMP/Mg pending
-await Physiatry evaluation for possible d/c to [facility]
-maintain pw (will cut prior to d/c)
-cont. current meds (ASA, Eliquis, Lipitor, Bumex, Amiodarone, Entresto, Farxiga). Lopressor has been on hold d/t prior bradycardia, 1st degree AVB
-appreciate everyone's input
Assessment / Plan
-
Assessment:
-S/P Aortic Valve Replacement (23mm Inspiris)/ Chordal Sparing Mitral Valve Replacement (29mm Mitris) with bovine patch of the annulus at P1 into P2/CABG x 2 (In situ JIMENES to LAD and Ao-RSVG-OM/LPL)/Left atrial MAZE/Left atrial appendage occlusion
(35mm Clip), by Dr. Najera on 12/01/23, pod#6
-Severe aortic valve stenosis
-Severe mitral valve insufficiency secondary to degeneration with mixed pathology heavy calcification of the leaflets into the annulus
-Multivessel coronary disease
-New onset atrial fibrillation with rapid ventricular response on anticoagulation S/P unsuccessful cardioversion x 2
-Moderate pulmonary hypertension with PA systolics in the 50s to 60s
-LVEF 40%; postop 55%
-Acute on chronic systolic CHF
-HTN
-T2DM (hgb A1C 9.2)
-Hyperlipidemia
-Class 1 obesity (BMI 32.5)
-GERD
-Neck pain S/p C4-5 laminectomy
-Spinal stenosis/Chronic back pain with ambulatory dysfunction S/P uses cane
-S/P B/L TKR
-S/P b/l Cataracts
-Hx uterine ca S/p HERIBERTO (no chemo/XRT)
-Hx Raynaud's
-Acute postop blood loss/Anemia (transfused 1u PRBC)
-Acute postop atelectasis/pleural effusion
-Preop and postop cardiogenic shock (requiring inotropic support with dobutamine and epinephrine)
-Acute postop pulmonary insufficiency
-Pre and postop hyponatremia, 128- on fluid restriction
Discussed patient care with: Nursing and Care Team
Subjective
Procedure
S/P Aortic Valve Replacement (23mm Inspiris)/ Chordal Sparing Mitral Valve Replacement (29mm Mitris) with bovine patch of the annulus at P1 into P2/CABG x 2 (In situ JIMENES to LAD and Ao-RSVG-OM/LPL)/Left atrial MAZE/Left atrial appendage occlusion
(35mm Clip), by Dr. Najera
-
Date of Service: December 07, 2023
Objective Data
-
Lab Results
12/06/23 04:50
PT 21.8 Sec (11.4-14.6) H 12/01/23 14:10
INR 1.92 12/01/23 14:10
APTT 29.3 Sec (23.4-35.0) 12/01/23 14:10
Vital Signs
Vital Signs
Temp Pulse Resp BP Pulse Ox
97.4 F 75 20 126/87 95
12/07/23 04:38 12/07/23 04:38 12/07/23 04:38 12/07/23 04:38 12/07/23 04:40
CT Intake/Output/Weight
12/06/23 12/06/23 12/07/23
06:59 18:59 06:59
Intake Total 240 / 872.8 930 / 1410 480 / 1410
Output Total 250 / 1125 3000 / 3800 800 / 3800
Balance -10 / -252.2 -0 / -2390 -320 / -239
SaO2: 95
Physical Exam
-
General: Awake and AOx3
Cardiovascular: Regular rate & rhythm, No Murmurs and No Rub
Respiratory: Clear and Decreased Breath Sounds
Sternum: Stable
Incision: Clean, Dry and Intact
Extremities: Edema +1
Data Reviewed
-
Lab Results: Results Reviewed
Medications: Active Meds Reviewed
Chest X-Ray: Report Reviewed and Image Reviewed
ECG: Report Reviewed and Image Reviewed
[2023-12-07 05:36] LABS: Blood Urea Nitrogen 43 mg/dl (7-17); Calcium 8.6 mg/dl (8.4-10.2); Carbon Dioxide 25 mmol/L (22-30); Chloride 99 mmol/L (98-107); Estimated Creatinine Clearance 70 ml/min; Glucose 163 mg/dl (70-99); Magnesium 2.1 mg/dl (1.6-2.3); Potassium 4.3 mmol/L (3.5-5.1); Sodium 131 mmol/L (135-145); eGFR > 60.00
[2023-12-07] MEDS: TYLENOL 1000 MG PO ×2 (06:12→13:44)
[2023-12-07 07:06] LABS: Glucose - Point of Care 157 mg/dl (70-99)
--- NOTE | 2023-12-07 08:35 | CON.MD ---
Addendum entered and electronically signed by Carlton Tate MD 12/08/23 17:28:
Attending statement:
I saw and examined the patient today. Reviewed care plan with patient, therapy, nursing, and physician surgical physician assistant. I agree with the above subjective, physical exam, and plan as documented above.
Original Note:
Documented by User: Whitney Bazzi PA-C 12/07/23 13:17
Consultation - Medical
-
Referring Provider:� Dr. Guido Najera
Chief Complaint: Ambulatory Dysfunction, Debility
History of Present Illness:�73-year-old female with PMH of(Atrial fibrillation status post cardioversion 2022, obesity,gout, chronic HFrEF (35%), poorly controlled IDDM, hx raynaud's, prior cellulitis hyperlipidemia, hypertension, mitral
regurgitation, aortic stenosis, lumbar stenosis) admitted on 11/24/2023 for elective cardiac cath which revealed two-vessel disease as well as severe aortic stenosis. Patient admitted with acute HFpEF, poorly controlled diabetes and permanent A-fib
with RVR. She is status post Aortic Valve Replacement (23mm Inspiris)/ Chordal Sparing Mitral Valve Replacement (29mm Mitris) with bovine patch of the annulus at P1 into P2/CABG x 2 (In situ JIMENES to LAD and Ao-RSVG-OM/LPL)/Left atrial MAZE/Left
atrial appendage occlusion (35mm Clip), by Dr. Najera on 12/01/23, pod#6.
Complaining of right foot numbness, foot drop post surgery. Not able to flex her right foot. Having some cough with whitish mucous.Denies chest pain. Complaining of some labored breathing.
Chest xray- 12/06/23
1. � Interval removal of a pulmonary arterial catheter.
2. � Small left pleural effusion and moderate postoperative atelectasis in the left lower lobe.
3. � Recent cardiac surgery (CABG surgery, aortic valve replacement, mitral valve or placement, and left atrial appendage exclusion).
4. � Mild elevation of the right hemidiaphragm.
EKG- 12/06/23
SINUS RHYTHM WITH 1ST DEGREE A-V BLOCK WITH PREMATURE ATRIAL COMPLEXES WITH
Aberrant conduction
LEFT AXIS DEVIATION
RIGHT BUNDLE BRANCH BLOCK
INFERIOR INFARCT (CITED ON OR BEFORE 02-DEC-2023)
ABNORMAL ECG
WHEN COMPARED WITH ECG OF 02-DEC-2023 04:06,
Aberrant conduction IS NOW PRESENT
Echo: 12/06/23
�Left Ventricle
�Normal left ventricular chamber size. Moderate concentric left ventricular
�hypertrophy. Overall, preserved left ventricular systolic function.� Left
�ventricular ejection fraction is 50-55% by volumetric assessment.
�Moderately dilated left atrium.
Mild tricuspid regurgitation.
�
Chest xray 12/04/23
MPRESSION:
Small bilateral pleural effusions with associated probable atelectasis, stable.
Past Medical History: Atrial fibrillation status post cardioversion 2022, obesity, chronic HFrEF (35%) hyperlipidemia, hypertension, mitral regurgitation, aortic stenosis, lumbar stenosis, ambulatory dysfunction,
Procedure History: Cervical laminectomy C4-5, bilateral cataract extraction with intra ocular lens implants, bilateral knee replacements,Hx uterine ca S/p HERIBERTO (no chemo/XRT), Hx raynauld
Family History:
Social History:
Functional Level Premorbidly:�Independent with all activities with rolling walker assistance.
Functional Level Currently:�Ambulates 10 feet and 20 feet with rolling walker minimal assistance, mod assist with transfer�sit to stand, min assist�stand to sit,
Tobacco:Non smoker
Alcohol:�Denies
Drug use:�Denies
Lives with: Alone
24-hour assistance available: Son and his family live nearby and assist as needed
Number of floors: 1
# steps to enter: 4
# steps to second floor:�0
Potential First floor set up:yes
Driving: Local driving
Occupation: retired
�
Allergies:
Allergy/AdvReac Type Severity Reaction Status Date / Time
hylan G-F 20 Allergy Swelling Verified 11/22/23 08:15
Review of Systems:
Constitutional: (x) Normal _
Eye: (x) Normal _
Ear/Nose/Throat: (x) Normal _
Respiratory:
Cardiovascular:CAD, CABG, valvular disease
Gastro intestinal:
Genitourinary:
Musculoskeletal:LBP, Spinal stenosis/Chronic back pain with ambulatory dysfunction S/P uses cane
Integumentary:
Neurologic:
Psychiatric:
Endocrine:poorly controlled IDDM
Hematologic/lymphatic:
Allergic/immunologic:
Medications:
Active Current Visit Medication List
Category Date Time Status
0.9% Sodium Chloride 500 ml [Nss] 500 ml Med 12/01/23 13:23 Active
IV CORDIS
Acetaminophen [Tylenol] Med 12/01/23 14:00 Active
1,000 mg PO TID@0600,1400,2200
Acetaminophen [Tylenol] Med 12/01/23 13:23 Active
650 mg PO Q4HPRN PRN
Amiodarone [Pacerone] Med 12/01/23 16:00 Active
200 mg PO TID
Apixaban [Eliquis] Med 12/05/23 08:00 Active
5 mg PO BID
Aspirin Chewable [Low Strength Aspirin] Med 12/02/23 08:00 Active
81 mg PO DAILY
Atorvastatin [Lipitor] Med 11/22/23 18:00 Active
40 mg PO QPM
Bisacodyl [Dulcolax] Med 12/01/23 13:23 Active
10 mg RECTAL DAILYPRN PRN
Bumetanide [Bumex] Med 12/06/23 11:00 Active
2 mg PO DAILY
Cyclobenzaprine HCl [Flexeril] Med 12/01/23 13:23 Active
5 mg PO Q8HPRN PRN
Dapagliflozin [Farxiga] Med 12/03/23 08:15 Active
10 mg PO DAILY
Dextrose 50%-Water [Dextrose 50% Syringe] Med 12/03/23 08:13 Active
12.5 grams IV [id number] PRN
Docusate W/Senna [Senokot-S] Med 12/01/23 20:00 Active
1 tablet PO Q12
Flush (0.9% Sodium Chloride) [Flush (Nss)] Med 12/01/23 14:00 Active
See Dose Instructions IV PER PROTOCOL
Gabapentin [Neurontin] Med 12/01/23 13:23 Active
100 mg PO TID
Glucagon [GlucaGen] Med 12/03/23 08:13 Active
1 mg IM PRN PRN
Insulin Aspart Corrective Mod [Novolog Flexpen-Moderate Med 12/03/23 11:30 Active
Resistance]
See Protocol SC AC
Insulin Aspart Pen [Novolog Flexpen] Med 12/04/23 11:30 Active
4 units SC AC
Insulin Detemir Levemir [Levemir] 12 units Med 12/04/23 08:25 Active
Subcutaneous Insulin Syringe [Syringe-Insulin] 0 unit
SC HS
Magnesium Hydroxide [Milk of Magnesia] Med 12/01/23 13:23 Active
30 ml PO BIDPRN PRN
Magnesium Oxide Med 12/02/23 08:00 Hold
500 mg PO BID
Metoprolol [Lopressor] Med 12/02/23 08:00 Hold
12.5 mg PO Q12
Miconazole Nitrate [Desenex/Mitrazol/Zeasorb] Med 11/22/23 20:00 Active
See Dose Instructions TOPICAL BID
Ondansetron Injectable [Zofran] Med 12/01/23 13:23 Active
4 mg IV Q8HPRN PRN
Oxycodone [Roxicodone] Med 12/01/23 13:23 Active
2.5 mg PO Q4HPRN PRN
Oxycodone [Roxicodone] Med 12/01/23 13:23 Active
5 mg PO Q4HPRN PRN
Pantoprazole [Protonix] Med 12/02/23 08:00 Active
40 mg PO DAILY
Sacubitril 24/Valsartan 26 [Entresto 24 mg/26 mg] Med 12/03/23 20:00 Active
1 tab PO BID
Vitals:
Temp Pulse Resp BP Pulse Ox
97.2 F 75 22 126/87 97
12/07/23 06:59 12/07/23 04:38 12/07/23 06:59 12/07/23 04:38 12/07/23 06:59
Height 5 ft
Actual Weight 82 kg
Body Mass Index (BMI) 35.3
Physical Exam:
General Appearance/Observation: Well-developed, well-nourished individual in no apparent distress.
Pain/Comfort Assessment: LBP
Mood/Affect: Appropriate
Integumentary/Operative Site: external pacer, Incisions clean, Dry and Intact-right side of neck, 4 drain incisions, sternal with glue and some wire sutures. rn cardiac rehab
��
Pressure Ulcer Evaluation:�none, but has a foot drop on the right side
����
Other Type of Wound: absent
Eyes: Conjunctiva/Lids: normal ��� Pupils: pupils equal round
Ears/Nose/Throat: oral mucosa moist,� throat clear.������������� Lips/Teeth/Gums: normal
Neck: No muscle spasm or tenderness
Cardiovascular: Heart: regular, murmur
Pulses: dorsalis pedis 1+ bilaterally
Respiratory: Respiratory Effort/Chest Expansion: normal ������ Auscultation: Clear to auscultation bilaterally with diminished breath sounds more on left than right
Gastrointestinal: abdomen not tender, no distension, obese, normal abdominal bowel sounds
Genitourinary: No Balderas
Extremities:�Edema: 1+ bilaterally�Cyanosis: None�Trophic�changes: None
Neurology Exam:
Orientation: Alert, Oriented to self, Time, Place
Memory: Intact for immediately medical concerns
Repetition: Intact
Comprehension: Intact
Two step command: Intact
Naming: Intact
Cranial Nerves:
��
CNII:�Pupillary light reflex: Intact����Visual Field: Intact
CN III, IV, : Extraocular muscles: Intact
CN V:�Facial Sensation�at�Forehead: Intact,�Maxilla: Intact,�Mandible: Intact
CN VII:�Facial movement: Symmetric
CN VIII:�Hearing: Normal
CN IX/X:�Speech & swallow: Normal,�Position of Uvula: Midline
CN XI:�Shoulder shrug: Symmetric
CN XII:�Tongue protrusion: Midline
Sensory:
Light touch: Intact in bilateral upper and lower extremities
Reflexes:
Biceps: 1+ bilaterally
Brachioradialis: 1+ bilaterally
Triceps: 1+ bilaterally
Patellar: absent bilaterally
Achilles: absent bilaterally
Clonus: None
Ly: Negative bilaterally
Cerebellar: Dysmetria/Ataxia: None
Musculoskeletal: Motor: (Manual muscle scale 0-5)
� � �
Muscle� � � ���SA�� � ���EF� � � ���WE� � � ���EE� � � ���FF� � � ���FA� � � ���HF� � � ���KE� � � ���DF� � � ���EHL� � � ���PF�� �
� � ��Right� ���� � � 4 � � � ���5�� � � � � �5 � � � � ���5� � � � ���� � � � ���� � � ���4�� � � � 4 � � � � ���2�� � � � ���2�� � � � �� � 4� � �
� � ��Left�� � 4��� � 5�� 5 � � �5� � � �� � � � � � � � 4 � � ���4� � � ���5� � � ���5� � � ���5� �
� � � �� �� �� �� �� �� �� �� �� �� �� �
Range of Motion: Passively within normal limits in all extremities,
Tone: Normal in all extremities
Lab Results��
Labs
WBC 9.9 10^3/uL (4.8-10.8) 12/06/23 04:50
RBC 3.45 10^6/uL (4.20-5.40) L 12/06/23 04:50
Hgb 10.2 g/dL (12.0-16.0) L 12/06/23 04:50
Hct 32.7 % (37.0-47.0) L 12/06/23 04:50
MCV 94.8 fL (81.0-99.0) 12/06/23 04:50
MCH 29.6 pg (27.0-31.0) 12/06/23 04:50
MCHC 31.2 g/dL (33.0-37.0) L 12/06/23 04:50
RDW 15.1 % (11.5-14.5) H 12/06/23 04:50
Plt Count 222 10^3/uL (130-400) D 12/06/23 04:50
MPV 9.9 fL (7.4-10.4) 12/06/23 04:50
Abs Immat Gran (auto) 0.0 10^3/uL (0-0.05) 11/29/23 05:19
Absolute Neuts (auto) 4.0 10^3/uL (1.4-6.5) 11/29/23 05:19
Absolute Lymphs (auto) 2.4 10^3/uL (1.2-3.4) 11/29/23 05:19
Absolute Monos (auto) 0.5 10^3/uL (0.1-0.6) 11/29/23 05:19
Absolute Eos (auto) 0.2 10^3/uL (0-0.7) 11/29/23 05:19
Absolute Basos (auto) 0.1 10^3/uL (0-0.2) 11/29/23 05:19
Immature Gran % 0.3 % (0-0.5) 11/29/23 05:19
Neutrophils % 55.5 % (42.2-75.2) 11/29/23 05:19
Lymphocytes % 33.5 % (20.5-51.1) 11/29/23 05:19
Monocytes % 7.4 % (1.7-9.3) 11/29/23 05:19
Eosinophils % 2.6 % (0-6) 11/29/23 05:19
Basophils % 0.7 % (0-2) 11/29/23 05:19
Nucleated RBC % 0 % 11/29/23 05:19
ESR 29 mm/hour (0-20) H 11/28/23 05:07
PT 21.8 Sec (11.4-14.6) H 12/01/23 14:10
INR 1.92 12/01/23 14:10
APTT 29.3 Sec (23.4-35.0) 12/01/23 14:10
pH 7.36 (7.35-7.45) 12/01/23 16:48
pCO2 40 mmHg (32-35) H 12/01/23 16:48
pO2 125 mmHg (83-108) H 12/01/23 16:48
HCO3 22.6 mmol/L (21-28) 12/01/23 16:48
Base Excess -2.7 mmol/L 12/01/23 16:48
ABG O2 Sat (Measured) 98.8 % (94-98) H 12/01/23 16:48
POC ABG O2 Sat (Calc) 73.3 5 (92-96) L 12/01/23 13:16
Mixed VBG O2 Saturation 64.4 % 12/05/23 08:13
Sodium 136 mMOL/L (136-145) 12/01/23 14:10
Potassium 4.0 mMOL/L (3.5-5.1) 12/01/23 14:10
O2 Delivery Level 12/01/23 16:48
Sodium 131 mmol/L (135-145) L 12/07/23 04:46
Potassium 4.3 mmol/L (3.5-5.1) 12/07/23 04:46
Chloride 99 mmol/L (98-107) 12/07/23 04:46
Carbon Dioxide 25 mmol/L (22-30) 12/07/23 04:46
BUN 43 mg/dl (7-17) H 12/07/23 04:46
Creatinine 0.7 mg/dL (0.6-1.0) 12/07/23 04:46
Estimated Creat Clear 70 ml/min 12/07/23 04:46
eGFR > 60.00 12/07/23 04:46
Glucose 163 mg/dl (70-99) H 12/07/23 04:46
Hemoglobin A1c 9.2 % (4.0-5.6) H 11/23/23 02:16
Calcium 8.6 mg/dl (8.4-10.2) 12/07/23 04:46
Ionized Calcium 1.29 mMOL/L (1.15-1.33) 12/03/23 03:23
Magnesium 2.1 mg/dl (1.6-2.3) 12/07/23 04:46
Total Bilirubin 1.2 mg/dl (0.2-1.3) 11/30/23 04:35
Direct Bilirubin 0.4 mg/dl (0.0-0.4) 11/30/23 04:35
AST 48 U/L (14-36) H 11/30/23 04:35
ALT 32 U/L (0-35) 11/30/23 04:35
Alkaline Phosphatase 123 U/L (38-126) 11/30/23 04:35
C-Reactive Protein 15.40 mg/L (0.0-10.00) H 11/28/23 05:07
Total Protein 7.7 g/dl (6.3-8.2) 11/30/23 04:35
Albumin 4.4 g/dl (3.5-5.0) 11/30/23 04:35
Triglycerides 139 mg/dl (10-149) 11/23/23 02:16
Total Cholesterol 87 mg/dl (50-199) 11/23/23 02:16
LDL Cholesterol, Calc 36 mg/dl 11/23/23 02:16
VLDL Cholesterol, Calc 27 mg/dl (0-30) 11/23/23 02:16
HDL Cholesterol 24 mg/dl 11/23/23 02:16
Procalcitonin < 0.05 ng/ml (0.0-0.25) 11/23/23 09:45
Urine Color Yellow 12/01/23 08:00
Urine Clarity Clear (Clear) 12/01/23 08:00
Urine pH 5.0 (5.0-9.0) 12/01/23 08:00
Ur Specific [place] 1.015 (<1.030) 12/01/23 08:00
Urine Ketones Negative (Negative) 12/01/23 08:00
Ur Occult Blood Reflex Negative (Negative) 12/01/23 08:00
Urine Nitrite (Reflex) Negative (Negative) 12/01/23 08:00
Urine Bilirubin Negative (Negative) 12/01/23 08:00
Urine Urobilinogen Negative (Neg - 1+) 12/01/23 08:00
Leukocyte Esterase Rfl Negative (Negative) 12/01/23 08:00
Urine RBC 0-2 /HPF (0-2) 11/22/23 20:10
Urine WBC (Reflex) 0-2 /HPF (0-5) 11/22/23 20:10
Ur Squamous Epith Cells >30 /LPF (Few) 11/22/23 20:10
Urine Glucose Negative (Negative) 12/01/23 08:00
Urine Albumin (Reflex) Negative (Neg - Trace) 12/01/23 08:00
Rheumatoid Factor Less than 10 iu (<10 IU) 11/28/23 05:06
NADIYA Titer 1:2560 A 11/28/23 05:06
NADIYA IgG Screen Detected (None Detected) A 11/28/23 05:06
NADIYA Pattern Centromere A 11/28/23 05:06
NADIYA (Hep-2) Detected (<1:80) H 11/28/23 05:06
NADIYA Comment See note 11/28/23 05:06
Complement C3 65 mg/dl (88-165) L 12/02/23 04:40
Complement C4 9.3 mg/dl (14-44) L 12/02/23 04:40
Hepatitis C Antibody Negative (Negative) 11/23/23 02:16
SARS-CoV-2 Antigen Negative (Negative) 11/22/23 20:09
POC pH 7.36 (7.35-7.45) 12/01/23 13:16
POC Base Excess -2.2 mmol/L 12/01/23 13:16
POC pO2 41 mmHg (80-100) L 03/15/24 13:16
POC pCO2 42 mmHg (35-45) 12/01/23 13:16
POC HCO3 23 mmol/L (21-29) 12/01/23 13:16
POC Glucose 167 mg/dl (65-99) H 12/01/23 13:16
POC Sodium 140 mmol/L (135-145) 12/01/23 13:16
POC Potassium 3.7 mmol/L (3.6-5.0) 12/01/23 13:16
POC Ionized Calcium 1.38 mmol/L (1.12-1.27) H 12/01/23 13:16
POC ACT+ 131 Seconds (82-134) 12/01/23 13:06
POC Hemoglobin Calc 11.2 12/01/23 13:16
POC Hematocrit 33 % PCV (37-47) L 12/01/23 13:16
POC Hemodilution Yes 12/01/23 13:16
POC Glucose 157 mg/dl (70-99) H 12/07/23 07:04
Blood Type O NEG 11/30/23 15:22
Blood Type Confirm O NEG 11/27/23 16:36
Antibody Screen Negative (Negative) 11/30/23 15:22
Crossmatch IS Only See Detail 11/30/23 15:22
�
Diagnostic Results: as per HPI
Assessment 73-year-old female with PMH of(Atrial fibrillation status post cardioversion 2022, obesity,gout, chronic HFrEF (35%), poorly controlled IDDM, hx raynaud's, prior cellulitis hyperlipidemia, hypertension, mitral regurgitation, aortic
stenosis, lumbar stenosis) admitted on 11/24/2023 for elective cardiac cath which revealed two-vessel disease as well as severe aortic stenosis. Patient admitted with acute HFpEF, poorly controlled diabetes and permanent A-fib with RVR. She is
status post Aortic Valve Replacement (23mm Inspiris)/ Chordal Sparing Mitral Valve Replacement (29mm Mitris) with bovine patch of the annulus at P1 into P2/CABG x 2 (In situ JIMENES to LAD and Ao-RSVG-OM/LPL)/Left atrial MAZE/Left atrial appendage
occlusion (35mm Clip), by Dr. Najera on 12/01/23, pod#6.
Plan
PT/OT to increase independence with ADLs, improve balance, coordination, endurance, strength, mobility, community reintegration, decreased burden of care on others and family education.
Debility/S/P Aortic Valve Replacement,Chordal Sparing Mitral Valve Replacement,Left atrial MAZE/Left atrial appendage occlusion 12/01/23. [place]/A-line d/c'd on 12/04. Amiodarone, Entresto, Farxiga, Bumex
HTN: Metoprolol 12.5-12 monitor closely, magnesium
HLD: Lipitor
CAD:Multivessel coronary disease
Acute on chronic systolic CHF:LVEF 40%; postop 55% Bumex
Anemia:Acute postop blood loss/Anemia (transfused 1u PRBC). Hgb 10.2
Hyponatremia, 131- on fluid restriction
Acute postop atelectasis/pleural effusion: Diures
Atrial Fibrillation: with rapid ventricular response on Eliquis and Metoprolol. S/P unsuccessful cardioversion x 2. Eliquis
KATHLEEN: Bun 43, creatinine-0.7
IDDM: Levemir 12 units at bedtime, NovoLog 4 units AC, on low corrective sliding scale, Farxiga 10 mg daily. hgb A1C of 9.2. Diabetes education.
Right Foot Drop post surgery: Recommending Multi podus boot due to right foot drop
Pain:LBP, Spinal stenosis/Chronic back pain with ambulatory dysfunction S/P uses cane. Neck pain S/p C4-5 laminectomy. Oxycodone, Tylenol prn, Flexeril, gabapentin
Psych: Psychology consult.� Monitor mood, adjust medications as needed.
Bowel: Colace, Senokot, bisacodyl as needed
Bladder: Bladder scan, timed voiding,
GERD/GI prophylaxis: Pantoprazole
DVT prophylaxis: Mechanical, Eliquis
Pulmonary:Incentive spirometry
Morbid obesity:Continue to drug and alcohol counselor patient about diet adjustments to control obesity. Body habitus and increased force to move body and extremities causes further difficulty with functional tasks.
CODE STATUS: Full code
Dispo: date/plan/equipment needs): Home with family care.� Social history reviewed.
Functional and Medical Goals:�Modified Independent with ADL�s, ambulation, transfers
Summary of recommendations:
Discharge destination:Patient would benefit from acute inpatient rehabilitation for PT/OT to increase independence with ADLs, improve balance, coordination, endurance, strength, mobility, community reintegration, decreased burden of care on others
and family education.based on her current level of Ambulating 10 feet and 20 feet with rolling walker minimal assistance, mod assist with transfer�sit to stand, min assist�stand to sit.
1. Debility/S/P Aortic Valve Replacement,Chordal Sparing Mitral Valve Replacement,Left atrial MAZE/Left atrial occlusion 12/01/23. [place]/A-line d/c'd on 12/04. Amiodarone, Entresto, Farxiga,
2. HTN: Metoprolol 12.5 every 12. continue medications, monitor closely
3. Right Foot Drop post surgery: Recommending Multi podus boot due to right foot drop to prevent pressure ulcers
4. Bowel:Had small bowel movement- Colace, Senokot, bisacodyl as needed
5. Pulmonary:Incentive spirometry
6. Morbid obesity:Continue to drug and alcohol counselor patient about diet adjustments to control obesity. Body habitus and increased force to move body and extremities causes further difficulty with functional tasks.
Thank you for allowing me to care for your patient. Please contact us with any questions or concerns.

Documented by User: Carlton Tate MD 12/07/23 22:26
Consultation - Medical
-
Referring Provider:� Dr. Guido Najera
Chief Complaint: Ambulatory Dysfunction, Debility
History of Present Illness:�73-year-old female with PMH of(Atrial fibrillation status post cardioversion 2022, obesity,gout, chronic HFrEF (35%), poorly controlled IDDM, hx raynaud's, prior cellulitis hyperlipidemia, hypertension, mitral
regurgitation, aortic stenosis, lumbar stenosis) admitted on 11/24/2023 for elective cardiac cath which revealed two-vessel disease as well as severe aortic stenosis. Patient admitted with acute HFpEF, poorly controlled diabetes and permanent A-fib
with RVR. She is status post Aortic Valve Replacement (23mm Inspiris)/ Chordal Sparing Mitral Valve Replacement (29mm Mitris) with bovine patch of the annulus at P1 into P2/CABG x 2 (In situ JIMENES to LAD and Ao-RSVG-OM/LPL)/Left atrial MAZE/Left
atrial appendage occlusion (35mm Clip), by Dr. Najera on 12/01/23, pod#6.
Complaining of right foot numbness, foot drop post surgery. Not able to flex her right foot. Having some cough with whitish mucous.Denies chest pain. Complaining of some labored breathing.
Chest xray- 12/06/23
1. � Interval removal of a pulmonary arterial catheter.
2. � Small left pleural effusion and moderate postoperative atelectasis in the left lower lobe.
3. � Recent cardiac surgery (CABG surgery, aortic valve replacement, mitral valve or placement, and left atrial appendage exclusion).
4. � Mild elevation of the right hemidiaphragm.
EKG- 12/06/23
SINUS RHYTHM WITH 1ST DEGREE A-V BLOCK WITH PREMATURE ATRIAL COMPLEXES WITH
Aberrant conduction
LEFT AXIS DEVIATION
RIGHT BUNDLE BRANCH BLOCK
INFERIOR INFARCT (CITED ON OR BEFORE 02-DEC-2023)
ABNORMAL ECG
WHEN COMPARED WITH ECG OF 02-DEC-2023 04:06,
Aberrant conduction IS NOW PRESENT
Echo: 12/06/23
�Left Ventricle
�Normal left ventricular chamber size. Moderate concentric left ventricular
�hypertrophy. Overall, preserved left ventricular systolic function.� Left
�ventricular ejection fraction is 50-55% by volumetric assessment.
�Moderately dilated left atrium.
Mild tricuspid regurgitation.
�
Chest xray 12/04/23
IMPRESSION:
Small bilateral pleural effusions with associated probable atelectasis, stable.
Past Medical History: Atrial fibrillation status post cardioversion 2022, obesity, chronic HFrEF (35%) hyperlipidemia, hypertension, mitral regurgitation, aortic stenosis, lumbar stenosis, ambulatory dysfunction,
Procedure History: Cervical laminectomy C4-5, bilateral cataract extraction with intra ocular lens implants, bilateral knee replacements,Hx uterine ca S/p HERIBERTO (no chemo/XRT), Hx raynauld
Family History: Reviewed & Not Pertinent
Social History:
Functional Level Premorbidly:�Independent with all activities with rolling walker assistance.
Functional Level Currently:�Ambulates 10 feet and 20 feet with rolling walker minimal assistance, mod assist with transfer�sit to stand, min assist�stand to sit,
Tobacco:Non smoker
Alcohol:�Denies
Drug use:�Denies
Lives with: Alone
24-hour assistance available: Son and his family live nearby and assist as needed
Number of floors: 1
# steps to enter: 4
# steps to second floor:�0
Potential First floor set up:yes
Driving: Local driving
Occupation: retired
�
Allergies:
Allergy/AdvReac Type Severity Reaction Status Date / Time
hylan G-F 20 Allergy Swelling Verified 11/22/23 08:15
Review of Systems:
Constitutional: (x) abNormal _tired
Eye: (x) Normal _
Ear/Nose/Throat: (x) Normal _
Respiratory: mild SOB
Cardiovascular:CAD, CABG, valvular disease
Gastrointestinal:(x) Normal _
Genitourinary:(x) Normal _
Musculoskeletal:LBP, Spinal stenosis/Chronic back pain with ambulatory dysfunction S/P uses cane
Integumentary: Chest incisions, stomach drains
Neurologic: Trouble lifting right foot.
Psychiatric: (x) Normal _
Endocrine:poorly controlled IDDM
Hematologic/lymphatic:(x) Normal _
Allergic/immunologic:(x) Normal _
Medications:
Active Current Visit Medication List
Category Date Time Status
0.9% Sodium Chloride 500 ml [Nss] 500 ml Med 12/01/23 13:23 Active
IV CORDIS
Acetaminophen [Tylenol] Med 12/01/23 14:00 Active
1,000 mg PO TID@0600,1400,2200
Acetaminophen [Tylenol] Med 12/01/23 13:23 Active
650 mg PO Q4HPRN PRN
Amiodarone [Pacerone] Med 12/01/23 16:00 Active
200 mg PO TID
Apixaban [Eliquis] Med 12/05/23 08:00 Active
5 mg PO BID
Aspirin Chewable [Low Strength Aspirin] Med 12/02/23 08:00 Active
81 mg PO DAILY
Atorvastatin [Lipitor] Med 11/22/23 18:00 Active
40 mg PO QPM
Bisacodyl [Dulcolax] Med 12/01/23 13:23 Active
10 mg RECTAL DAILYPRN PRN
Bumetanide [Bumex] Med 12/06/23 11:00 Active
2 mg PO DAILY
Cyclobenzaprine HCl [Flexeril] Med 12/01/23 13:23 Active
5 mg PO Q8HPRN PRN
Dapagliflozin [Farxiga] Med 12/03/23 08:15 Active
10 mg PO DAILY
Dextrose 50%-Water [Dextrose 50% Syringe] Med 12/03/23 08:13 Active
12.5 grams IV [id number] PRN
Docusate W/Senna [Senokot-S] Med 12/01/23 20:00 Active
1 tablet PO Q12
Flush (0.9% Sodium Chloride) [Flush (Nss)] Med 12/01/23 14:00 Active
See Dose Instructions IV PER PROTOCOL
Gabapentin [Neurontin] Med 12/01/23 13:23 Active
100 mg PO TID
Glucagon [GlucaGen] Med 12/03/23 08:13 Active
1 mg IM PRN PRN
Insulin Aspart Corrective Mod [Novolog Flexpen-Moderate Med 12/03/23 11:30 Active
Resistance]
See Protocol SC AC
Insulin Aspart Pen [Novolog Flexpen] Med 12/04/23 11:30 Active
4 units SC AC
Insulin Detemir Levemir [Levemir] 12 units Med 12/04/23 08:25 Active
Subcutaneous Insulin Syringe [Syringe-Insulin] 0 unit
SC HS
Magnesium Hydroxide [Milk of Magnesia] Med 12/01/23 13:23 Active
30 ml PO BIDPRN PRN
Magnesium Oxide Med 12/02/23 08:00 Hold
500 mg PO BID
Metoprolol [Lopressor] Med 12/02/23 08:00 Hold
12.5 mg PO Q12
Miconazole Nitrate [Desenex/Mitrazol/Zeasorb] Med 11/22/23 20:00 Active
See Dose Instructions TOPICAL BID
Ondansetron Injectable [Zofran] Med 12/01/23 13:23 Active
4 mg IV Q8HPRN PRN
Oxycodone [Roxicodone] Med 12/01/23 13:23 Active
2.5 mg PO Q4HPRN PRN
Oxycodone [Roxicodone] Med 12/01/23 13:23 Active
5 mg PO Q4HPRN PRN
Pantoprazole [Protonix] Med 12/02/23 08:00 Active
40 mg PO DAILY
Sacubitril 24/Valsartan 26 [Entresto 24 mg/26 mg] Med 12/03/23 20:00 Active
1 tab PO BID
Vitals:
Temp Pulse Resp BP Pulse Ox
97.2 F 75 22 126/87 97
12/07/23 06:59 12/07/23 04:38 12/07/23 06:59 12/07/23 04:38 12/07/23 06:59
Height 5 ft
Actual Weight 82 kg
Body Mass Index (BMI) 35.3
Physical Exam:
General Appearance/Observation: Well-developed, well-nourished individual in no apparent distress.
Pain/Comfort Assessment: LBP
Mood/Affect: Appropriate
Integumentary/Operative Site: external pacer, Incisions clean, Dry and Intact-right side of neck, 4 drain incisions, sternal with glue and some wire sutures. rn cardiac rehab
-Right medial below the knee knee incision C/D/I
��
Pressure Ulcer Evaluation:�none
����
Other Type of Wound: absent
Eyes: Conjunctiva/Lids: normal ��� Pupils: pupils equal round
Ears/Nose/Throat: oral mucosa moist,� throat clear.������������� Lips/Teeth/Gums: normal
Neck: No muscle spasm or tenderness
Cardiovascular: Heart: regular, murmur
Pulses: dorsalis pedis 1+ bilaterally
Respiratory: Respiratory Effort/Chest Expansion: normal ������ Auscultation: Clear to auscultation bilaterally with diminished breath sounds more on left than right
Gastrointestinal: abdomen not tender, no distension, obese, normal abdominal bowel sounds
Genitourinary: No Balderas
Extremities:�Edema: 1+ bilaterally�Cyanosis: None�Trophic�changes: None
Neurology Exam:
Orientation: Alert, Oriented to self, Time, Place
Memory: Intact for recent medical concerns
Repetition: Intact
Comprehension: Intact
Two step command: Intact
Naming: Intact
Cranial Nerves:��
CNII:�Pupillary light reflex: Intact����Visual Field: Intact
CN III, IV, : Extraocular muscles: Intact
CN V:�Facial Sensation�at�Forehead: Intact,�Maxilla: Intact,�Mandible: Intact
CN VII:�Facial movement: Symmetric
CN VIII:�Hearing: Normal
CN IX/X:�Speech & swallow: Normal,�Position of Uvula: Midline
CN XI:�Shoulder shrug: Symmetric
CN XII:�Tongue protrusion: Midline
Sensory:
Light touch: Intact in bilateral upper and lower extremities except at the dorsal aspect of webspace of right 1/2 toe
Reflexes:
Biceps: 2+ bilaterally
Brachioradialis: 2+ bilaterally
Triceps: 2+ bilaterally
Patellar: absent bilaterally
Achilles: absent bilaterally
Clonus: None
Ly: Negative bilaterally
Cerebellar: Dysmetria/Ataxia: None
Musculoskeletal: Motor: (Manual muscle scale 0-5)
� � �
Muscle� � � ���SA�� � ���EF� � � ���WE� � � ���EE� � � ���FF� � � ���FA� � � ���HF� � � ���KE� � � ���DF� � � ���EHL� � � ���PF�� �
� � ��Right� ���� � � 4 � � � ���5�� � � � � �5 � � � � ���5� � � � ���� � � � ���� � � ���4�� � � � 4 � � � � ���0�� � � � ���0�� � � � �� � 4� � �
� � ��Left�� � 4��� � 5�� 5 � � �5� � � �� � � � � � � � 4 � � ���4� � � ���5� � � ���5� � � ���5� �
� � � �� �� �� �� �� �� �� �� �� �� �� �
Range of Motion: Passively within normal limits in all extremities,
Tone: Normal in all extremities
Lab Results��
Labs
WBC 9.9 10^3/uL (4.8-10.8) 12/06/23 04:50
RBC 3.45 10^6/uL (4.20-5.40) L 12/06/23 04:50
Hgb 10.2 g/dL (12.0-16.0) L 12/06/23 04:50
Hct 32.7 % (37.0-47.0) L 12/06/23 04:50
MCV 94.8 fL (81.0-99.0) 12/06/23 04:50
MCH 29.6 pg (27.0-31.0) 12/06/23 04:50
MCHC 31.2 g/dL (33.0-37.0) L 12/06/23 04:50
RDW 15.1 % (11.5-14.5) H 12/06/23 04:50
Plt Count 222 10^3/uL (130-400) D 12/06/23 04:50
MPV 9.9 fL (7.4-10.4) 12/06/23 04:50
Abs Immat Gran (auto) 0.0 10^3/uL (0-0.05) 11/29/23 05:19
Absolute Neuts (auto) 4.0 10^3/uL (1.4-6.5) 11/29/23 05:19
Absolute Lymphs (auto) 2.4 10^3/uL (1.2-3.4) 11/29/23 05:19
Absolute Monos (auto) 0.5 10^3/uL (0.1-0.6) 11/29/23 05:19
Absolute Eos (auto) 0.2 10^3/uL (0-0.7) 11/29/23 05:19
Absolute Basos (auto) 0.1 10^3/uL (0-0.2) 11/29/23 05:19
Immature Gran % 0.3 % (0-0.5) 11/29/23 05:19
Neutrophils % 55.5 % (42.2-75.2) 11/29/23 05:19
Lymphocytes % 33.5 % (20.5-51.1) 11/29/23 05:19
Monocytes % 7.4 % (1.7-9.3) 11/29/23 05:19
Eosinophils % 2.6 % (0-6) 11/29/23 05:19
Basophils % 0.7 % (0-2) 11/29/23 05:19
Nucleated RBC % 0 % 11/29/23 05:19
ESR 29 mm/hour (0-20) H 11/28/23 05:07
PT 21.8 Sec (11.4-14.6) H 12/01/23 14:10
INR 1.92 12/01/23 14:10
APTT 29.3 Sec (23.4-35.0) 12/01/23 14:10
pH 7.36 (7.35-7.45) 12/01/23 16:48
pCO2 40 mmHg (32-35) H 12/01/23 16:48
pO2 125 mmHg (83-108) H 12/01/23 16:48
HCO3 22.6 mmol/L (21-28) 12/01/23 16:48
Base Excess -2.7 mmol/L 12/01/23 16:48
ABG O2 Sat (Measured) 98.8 % (94-98) H 12/01/23 16:48
POC ABG O2 Sat (Calc) 73.3 5 (92-96) L 12/01/23 13:16
Mixed VBG O2 Saturation 64.4 % 12/05/23 08:13
Sodium 136 mMOL/L (136-145) 12/01/23 14:10
Potassium 4.0 mMOL/L (3.5-5.1) 12/01/23 14:10
O2 Delivery Level 12/01/23 16:48
Sodium 131 mmol/L (135-145) L 12/07/23 04:46
Potassium 4.3 mmol/L (3.5-5.1) 12/07/23 04:46
Chloride 99 mmol/L (98-107) 12/07/23 04:46
Carbon Dioxide 25 mmol/L (22-30) 12/07/23 04:46
BUN 43 mg/dl (7-17) H 12/07/23 04:46
Creatinine 0.7 mg/dL (0.6-1.0) 12/07/23 04:46
Estimated Creat Clear 70 ml/min 12/07/23 04:46
eGFR > 60.00 12/07/23 04:46
Glucose 163 mg/dl (70-99) H 12/07/23 04:46
Hemoglobin A1c 9.2 % (4.0-5.6) H 11/23/23 02:16
Calcium 8.6 mg/dl (8.4-10.2) 12/07/23 04:46
Ionized Calcium 1.29 mMOL/L (1.15-1.33) 12/03/23 03:23
Magnesium 2.1 mg/dl (1.6-2.3) 12/07/23 04:46
Total Bilirubin 1.2 mg/dl (0.2-1.3) 11/30/23 04:35
Direct Bilirubin 0.4 mg/dl (0.0-0.4) 11/30/23 04:35
AST 48 U/L (14-36) H 11/30/23 04:35
ALT 32 U/L (0-35) 11/30/23 04:35
Alkaline Phosphatase 123 U/L (38-126) 11/30/23 04:35
C-Reactive Protein 15.40 mg/L (0.0-10.00) H 11/28/23 05:07
Total Protein 7.7 g/dl (6.3-8.2) 11/30/23 04:35
Albumin 4.4 g/dl (3.5-5.0) 11/30/23 04:35
Triglycerides 139 mg/dl (10-149) 11/23/23 02:16
Total Cholesterol 87 mg/dl (50-199) 11/23/23 02:16
LDL Cholesterol, Calc 36 mg/dl 11/23/23 02:16
VLDL Cholesterol, Calc 27 mg/dl (0-30) 11/23/23 02:16
HDL Cholesterol 24 mg/dl 11/23/23 02:16
Procalcitonin < 0.05 ng/ml (0.0-0.25) 11/23/23 09:45
Urine Color Yellow 12/01/23 08:00
Urine Clarity Clear (Clear) 12/01/23 08:00
Urine pH 5.0 (5.0-9.0) 12/01/23 08:00
Ur Specific [place] 1.015 (<1.030) 12/01/23 08:00
Urine Ketones Negative (Negative) 12/01/23 08:00
Ur Occult Blood Reflex Negative (Negative) 12/01/23 08:00
Urine Nitrite (Reflex) Negative (Negative) 12/01/23 08:00
Urine Bilirubin Negative (Negative) 12/01/23 08:00
Urine Urobilinogen Negative (Neg - 1+) 12/01/23 08:00
Leukocyte Esterase Rfl Negative (Negative) 12/01/23 08:00
Urine RBC 0-2 /HPF (0-2) 11/22/23 20:10
Urine WBC (Reflex) 0-2 /HPF (0-5) 11/22/23 20:10
Ur Squamous Epith Cells >30 /LPF (Few) 11/22/23 20:10
Urine Glucose Negative (Negative) 12/01/23 08:00
Urine Albumin (Reflex) Negative (Neg - Trace) 12/01/23 08:00
Rheumatoid Factor Less than 10 iu (<10 IU) 11/28/23 05:06
NADIYA Titer 1:2560 A 11/28/23 05:06
NADIYA IgG Screen Detected (None Detected) A 11/28/23 05:06
NADIYA Pattern Centromere A 11/28/23 05:06
NADIYA (Hep-2) Detected (<1:80) H 11/28/23 05:06
NADIYA Comment See note 11/28/23 05:06
Complement C3 65 mg/dl (88-165) L 12/02/23 04:40
Complement C4 9.3 mg/dl (14-44) L 12/02/23 04:40
Hepatitis C Antibody Negative (Negative) 11/23/23 02:16
SARS-CoV-2 Antigen Negative (Negative) 11/22/23 20:09
POC pH 7.36 (7.35-7.45) 12/01/23 13:16
POC Base Excess -2.2 mmol/L 12/01/23 13:16
POC pO2 41 mmHg (80-100) L 12/01/23 13:16
POC pCO2 42 mmHg (35-45) 12/01/23 13:16
POC HCO3 23 mmol/L (21-29) 12/01/23 13:16
POC Glucose 167 mg/dl (65-99) H 12/01/23 13:16
POC Sodium 140 mmol/L (135-145) 12/01/23 13:16
POC Potassium 3.7 mmol/L (3.6-5.0) 12/01/23 13:16
POC Ionized Calcium 1.38 mmol/L (1.12-1.27) H 12/01/23 13:16
POC ACT+ 131 Seconds (82-134) 12/01/23 13:06
POC Hemoglobin Calc 11.2 12/01/23 13:16
POC Hematocrit 33 % PCV (37-47) L 12/01/23 13:16
POC Hemodilution Yes 12/01/23 13:16
POC Glucose 157 mg/dl (70-99) H 12/07/23 07:04
Blood Type O NEG 11/30/23 15:22
Blood Type Confirm O NEG 11/27/23 16:36
Antibody Screen Negative (Negative) 11/30/23 15:22
Crossmatch IS Only See Detail 11/30/23 15:22
�
Diagnostic Results: as per HPI
Assessment 73-year-old female with PMH of(Atrial fibrillation status post cardioversion 2022, obesity,gout, chronic HFrEF (35%), poorly controlled IDDM, hx raynaud's, prior cellulitis hyperlipidemia, hypertension, mitral regurgitation, aortic
stenosis, lumbar stenosis) admitted on 11/24/2023 for elective cardiac cath which revealed two-vessel disease as well as severe aortic stenosis. Patient admitted with acute HFpEF, poorly controlled diabetes and permanent A-fib with RVR. She is
status post Aortic Valve Replacement (23mm Inspiris)/ Chordal Sparing Mitral Valve Replacement (29mm Mitris) with bovine patch of the annulus at P1 into P2/CABG x 2 (In situ JIMENES to LAD and Ao-RSVG-OM/LPL)/Left atrial MAZE/Left atrial appendage
occlusion (35mm Clip), by Dr. Najera on 12/01/23, pod#6.
Plan
PT/OT to increase independence with ADLs, improve balance, coordination, endurance, strength, mobility, community reintegration, decreased burden of care on others and family education.
Debility/S/P Aortic Valve Replacement,Chordal Sparing Mitral Valve Replacement,Left atrial MAZE/Left atrial appendage occlusion 12/01/23. [place]/A-line d/c'd on 12/04. Amiodarone, Entresto, Farxiga, Bumex
HTN: Metoprolol 12.5-12 monitor closely, magnesium
HLD: Lipitor
CAD:Multivessel coronary disease
Acute on chronic systolic CHF:LVEF 40%; postop 55% Bumex
Anemia:Acute postop blood loss/Anemia (transfused 1u PRBC). Hgb 10.2
Hyponatremia, 131- on fluid restriction
Acute postop atelectasis/pleural effusion: Diures
Atrial Fibrillation: with rapid ventricular response on Eliquis and Metoprolol. S/P unsuccessful cardioversion x 2. Eliquis
KATHLEEN: Bun 43, creatinine-0.7
IDDM: Levemir 12 units at bedtime, NovoLog 4 units AC, on low corrective sliding scale, Farxiga 10 mg daily. hgb A1C of 9.2. Diabetes education.
Right Foot Drop post surgery: Likely compressive ,Recommending Multipodus boot due to right foot drop
Pain:LBP, Spinal stenosis/Chronic back pain with ambulatory dysfunction S/P uses cane. Neck pain S/p C4-5 laminectomy. Oxycodone, Tylenol prn, Flexeril, gabapentin
Psych: Psychology consult.� Monitor mood, adjust medications as needed.
Bowel: Colace, Senokot, bisacodyl as needed
Bladder: Bladder scan, timed voiding,
GERD/GI prophylaxis: Pantoprazole
DVT prophylaxis: Mechanical, Eliquis
Pulmonary:Incentive spirometry
Morbid obesity:Continue to drug and alcohol counselor patient about diet adjustments to control obesity. Body habitus and increased force to move body and extremities causes further difficulty with functional tasks.
CODE STATUS: Full code
Dispo: date/plan/equipment needs): Home with family care.� Social history reviewed.
Functional and Medical Goals:�Modified Independent with ADL�s, ambulation, transfers
Attending Statement:
I saw and examined the patient today.� Reviewed care plan with patient, therapy, nursing, and physician surgical physician assistant.� I agree with the above subjective and physical exam, and plan as documented.
Summary of recommendations:
Discharge destination:Patient would benefit from acute inpatient rehabilitation for PT/OT to increase independence with ADLs, improve balance, coordination, endurance, strength, mobility, community reintegration, decreased burden of care on others
and family education.based on her current level of Ambulating 10 feet and 20 feet with rolling walker minimal assistance, mod assist with transfer�sit to stand, min assist�stand to sit.
1. Debility/S/P Aortic Valve Replacement,Chordal Sparing Mitral Valve Replacement,Left atrial MAZE/Left atrial occlusion 12/01/23. [place]/A-line d/c'd on 12/04. Amiodarone, Entresto, Farxiga,
2. HTN: Metoprolol 12.5 every 12. continue medications, monitor closely
3. Right Foot Drop post surgery: Recommending Multi podus boot due to right foot drop to prevent pressure ulcers
4. Bowel:Had small bowel movement- Colace, Senokot, bisacodyl as needed
5. Pulmonary:Incentive spirometry
6. Morbid obesity:Continue to drug and alcohol counselor patient about diet adjustments to control obesity. Body habitus and increased force to move body and extremities causes further difficulty with functional tasks.
Thank you for allowing me to care for your patient. Please contact us with any questions or concerns.
--- NOTE | 2023-12-07 09:36 | PN.DE.MGMTRT ---
Insulin Management
- -
12/07/2023: Diabetes Management Follow up:
POD #6, s/p CABG x2, AVR . Pt was sleeping soundly when I visited, I did speak with her nurse. Glucose stable.
Received Levemir 12 units @ HS, FBG 157 this AM. Receiving NovoLog 4 units AC, glucose 116 to 168 @ HS. Will cont low corrective with meals and Farxiga 10mg daily.
Patient has been given new glucose monitor, Contour Next, RX for test strips and lancets in ambulatory orders.
Diabetes History
- -
Type of Diabetes: 2 requiring insulin
Pre-Admission Diabetes Regimen
12/07/23
04:46
Creatinine 0.7
Lab Results
Hemoglobin A1c 9.2 % (4.0-5.6) H 11/23/23 02:16
Insulin Pump Settings
IP Diabetes Regimen
12/06/23 12/06/23 12/06/23
13:20 18:00 21:24
Glucose
POC Glucose 159 H 116 H 168 H
12/07/23 12/07/23
04:46 07:04
Glucose 163 H
POC Glucose 157 H
Meal type: Dinner
Meal type: Lunch
Meal type: Breakfast
Amount consumed: 100%
Amount consumed: 100%
Amount consumed: 75%
Patient Education
[2023-12-07] MEDS: NOVOLOG FLEXPEN 4 UNITS SC ×3 (10:38→16:30)
[2023-12-07] MEDS: NOVOLOG FLEXPEN-MODERATE RESISTANCE 1 UNITS SC ×3 (10:39→16:29)
[2023-12-07] MEDS: LOW STRENGTH ASPIRIN 81 MG PO (10:40)
[2023-12-07] MEDS: PROTONIX 40 MG PO (10:41)
[2023-12-07] MEDS: NEURONTIN 100 MG PO ×2 (10:41→16:44)
[2023-12-07] MEDS: SENOKOT-S 1 TABLET PO (10:41)
[2023-12-07] MEDS: ELIQUIS 5 MG PO (10:41)
[2023-12-07] MEDS: FARXIGA 10 MG PO (10:42)
[2023-12-07] MEDS: PACERONE 200 MG PO (10:42)
[2023-12-07] MEDS: ENTRESTO 24 MG/26 MG 1 TAB PO (10:48)
[2023-12-07] MEDS: DESENEX/MITRAZOL/ZEASORB 1 APPLIC TOPICAL (10:49)
--- NOTE | 2023-12-07 11:01 | W.DCSUMMARY ---
Discharge Summary
Discharge Data
Date of Admission: 11/22/23
Date of Discharge: 12/07/23
Total time spent discharging patient (in min): 45
-
Pending Results: No
Hospital Course
Primary care physician:
Dr. Dorothy Lopez
Outpatient product applications scientist:
Dr. Gastelum
Inpatient consultants:
DCA, Mechanical Maintenance Foreman, Diabetes management
Procedures:
1. Coronary Artery Bypass grafting x 2
2. Surgical Aortic Valve Replacement (23mm Inspiris)
3. Chordal Sparing Mitral Valve Replacement (29mm Mitris) with bovine patch of the annulus at P1 into P2
4. Left atrial MAZE
5. Left atrial appendage occlusion (35mm Clip)
Primary Diagnosis:
1. Severe aortic valve stenosis, Severe mitral valve regurgitation with severe mitral annular calcification, new onset atrial fibrillation, and acute on chronic congestive heart failure with volume overload
Secondary Diagnoses:
1. Morbidly Obese
2. Acute on chronic congestive heart failure
3. Hypertension
4. Hyperlipidemia
5. Diabetes Mellitus Type II
6. Moderate pulmonary hypertension
HPI: 73-year-old female who presents to the hospital in respiratory failure and volume overload and was found to have atrial fibrillation with rapid ventricular response.� She underwent left heart cath and right heart cath and was found to have
multivessel coronary artery disease and severely elevated filling pressures with a wedge in the 30s and LVEDP in the high 20s.� She was aggressively diuresed and lost a significant amount of water weight.� She underwent further investigation of her
mitral valve and aortic valve under transesophageal echocardiography was found to have severe mitral valve insufficiency secondary to ruptured chordae of A2 leaflet however there was heavy mitral annular calcification with calcium extending onto the
leaflets consistent with rheumatic degeneration.� Due to her multivalve disease and relatively new onset atrial relation and coronary artery disease, multidisciplinary team discussion came to the ultimate conclusion that surgery was likely her best
option.�
Hospital course:
Patient was admitted on 11/21 for a right and left heart cath. She was found to have two-vessel coronary artery disease and decompensated heart failure. She was also found to be in atrial fibrillation with rapid ventricular rate and was started on a
rate controlling medication. Subsequently she underwent a transesophageal echocardiogram and was found to have severe aortic stenosis and mitral valve insufficiency secondary to ruptured chordae. She was optimized preoperatively with diuresis and
was taken to the OR on 11/30. She returned to the CVICU on epi, Levophed, insulin, and Precedex infusions. She was given to albumins for an elevated SVR and dobutamine was added for a low cardiac output and cardiac index. Precedex was weaned off
and patient was extubated by 1718 and was started on aspirin 81 mg. On 12/01 postop day #1 epi was weaned off, however, mixed venous is and cardiac index trended down and was started on milrinone. She was diuresed with 1 mg of Bumex and 60 mg of
Lasix throughout the day with adequate response. She was also given 1 unit of packed red blood cells between diuresis doses. Beta-amrit were held and amnio was continued. On 12/02 postop day #2, milrinone was weaned off however she did not
tolerate weaning and was restarted. Dobutamine was weaned off slowly throughout the day and was started on Monday night. Farxiga was started and lieu of glipizide and insulin drip was weaned off. Chest tubes were removed. On 12/03 postop
day #3 cardiac index was 2.5 and milrinone was weaned down to 0.125. On 12/04 postop day #4, milrinone was turned off mixed venous was stable and [place]-Jael catheter was removed. Patient was also found to be hyponatremic and was started on a 1200 cc
fluid restriction and was diuresed with 40 mg of IV Lasix. On 12/05 postop day #5, patient was resumed on oral Bumex and continued on amiodarone p.o. for frequent ectopy. On 12/06 postop day #6, patient amiodarone was decreased to 200 mg daily and
continued on Bumex 2 mg daily. Due to a prolonged SD interval patient's metoprolol was not restarted per cardiology. However, she was deemed stable for discharge to [facility] rehab.
Home medication changes:
See below
Discharge Plan
-
Patient Disposition: Skilled Nursing/SNF
Discharge Diagnosis/Procedures: AFib, Aortic Stenosis, s/p cardiac catheterization
Condition: Good
Diet: Low Cholesterol, 2 Gram Sodium, Diabetic, Carb Controlled and Restrict fluids to 48 oz
Activity: No strenuous activity
Driving Restrictions: No driving for 24 hours
Bathing Restrictions: OK to Shower
Blood Work: Continue Daily BMP while on bumex
Other Services: Cardiac Rehab
Specialty Instructions: Weigh Daily- Call MD for wt gain/loss 3 lbs overnight/5 lbs in 1 week
Activity Restrictions/Additional Instructions:
Wound Care Instructions Sacrum- Clean gently with soap and water or normal saline and gently pat dry. Apply sacral silicone border foam. Change Q 3 days and PRN for drainage or if soiled.
Please call [facility] at [phone] to schedule first appointment upon discharge.
ACTIVITY:
-No strenuous activity: no heavy lifting, pushing, pulling anything over 15 pounds for one month
-continue to use stairs as tolerated
DRIVING RESTRICTIONS:
-No driving for one month or until approved by your surgeon
WOUND CARE:
-Shower daily. Use soap & water.
-No lotions, creams or powders on incision area.
DIET:
-continue a low fat/low cholesterol diet.
-IF you are diabetic, continue carb controlled diet.
CARDIAC REHAB:
-Please make appointment to start in 5-6 weeks with your local hospital program. (See Cardiac Rehabilitation Discharge Booklet).
SPECIALTY INSTRUCTIONS:
-Weigh yourself daily. Call your physician for any weight gain/loss of 3 lbs overnight or 5 lbs in one week.
-REPORT any clicking noise or uneven appearance of your sternum to your surgeon immediately.
-If you smoke, you are instructed to quit. The [place] smoking hotline phone number is [phone]
Stand Alone Forms: DC Instructions- Cath/EP Lab
Referrals:
[facility] [Other] ( )
Monty Gastelum MD [Active] - 01/26/24 3:15 pm (Cardiology followup appointment)
Vance Lopez MD [Active] - in four to six weeks (Abnormal CT chest, may see AURICULAR THERAPIST)
Jessica De La Cruz MD [Primary Care Provider] - in one to two months
Guido Najera MD [Active] - 01/04/24 2:00 pm
Additional Discharge Medication Instructions: Stop simvastatin you will be on atorvastatin 40mg
Prescriptions:
New
(DME) Contour Next Test Strips Strip
Qty: 100 0RF
Rx Instructions:
Test before breakfast, dinner and at bedtime As Directed
E11.65
insulin aspart U-100 [Novolog FlexPen U-100 Insulin] 100 unit/mL (3 mL) Insulin Pen
4 unit SC AC Qty: 5 0RF
Rx Instructions:
E11.65
insulin glargine [Lantus Solostar U-100 Insulin] 100 unit/mL (3 mL) Insulin Pen
12 unit SC HS Qty: 5 0RF
Rx Instructions:
E11.65
(DME) pen needle, diabetic [BD Ultra-Fine Lynda Pen Needle] 32 gauge x 5/32' Needle
Qty: 200 0RF
Rx Instructions:
[facility] As Directed
E11.65
(DME) lancets [Color Lancets] 21 gauge Misc
Qty: 100 0RF
Rx Instructions:
Test before breakfast, dinner and at bedtim As Directed
E11.65
dapagliflozin propanediol [Farxiga] 10 mg Tablet
10 mg PO DAILY Qty: 30 0RF
Rx Instructions:
E11.65
cyclobenzaprine 10 mg Tablet
5 mg PO Q8HPRN PRN (Reason: muscle spasm) Qty: 0 0RF
atorvastatin 40 mg Tablet
40 mg PO QPM Qty: 0 0RF
amiodarone [Pacerone] 200 mg Tablet
200 mg PO DAILY Qty: 0 0RF
Entresto 24-26 mg Tablet
1 tab PO BID Qty: 0 0RF
acetaminophen 325 mg Tablet
650 mg PO Q4HPRN PRN (Reason: mild pain,headache,temp >101F ) Qty: 0 0RF
sennosides-docusate sodium [Stool Softener-Stimulant Laxat] 8.6-50 mg Tablet
1 tab PO Q12 Qty: 0 0RF
acetaminophen [Tylenol Extra Strength] 500 mg Tablet
1,000 mg PO TID@0600,1400,2200 PRNQty: 0 0RF
magnesium hydroxide 400 mg/5 mL Suspension
30 ml PO BIDPRN PRN (Reason: if no BM in three days) Qty: 0 0RF
bisacodyl 10 mg Suppository
10 mg SD DAILYPRN PRN (Reason: constipation ) Qty: 0 0RF
pantoprazole 40 mg Tablet,Delayed Release (Dr/Ec)
40 mg PO DAILY Qty: 0 0RF
aspirin [Children's Aspirin] 81 mg Tablet,Chewable
81 mg PO DAILY Qty: 0 0RF
gabapentin 100 mg Capsule
100 mg PO TID PRN (Reason: moderate pain) Qty: 0 0RF
oxycodone 5 mg Tablet
2.5 mg PO Q4HPRN PRN (Reason: severe pain) Qty: 10 0RF
dapagliflozin propanediol [Farxiga] 10 mg Tablet
10 mg PO DAILY Qty: 0 0RF
insulin aspart U-100 100 unit/mL (3 mL) Insulin Pen
4 unit SC AC Qty: 0 0RF
insulin aspart U-100 [Novolog FlexPen U-100 Insulin] 100 unit/mL (3 mL) Insulin Pen
0 unit SC AC Qty: 0 0RF
miconazole nitrate [Miconazorb AF] 2 % Powder
1 applic topical BID Qty: 0 0RF
Insulin Detemir Levemir [Levemir] 12 UNITS
Subcutaneous Insulin Syringe [Syringe-Insulin] 0 UNIT
As Directed mls/hr SC HS
Ordered By: Christina Nicholas CRNP
Last Taken: 12/06/23 21:53 0.12 mls
potassium chloride 20 mEq tablet extended release
20 meq PO DAILY PRN (Reason: Potassium less than 4.0) Qty: 10 0RF
Continued
multivitamin Tablet
1 tab PO DAILY
bumetanide 2 mg Tablet
2 mg PO DAILY
loratadine [Claritin] 10 mg Tablet
10 mg PO QPM
Eliquis 5 mg Tablet
5 mg PO BID Qty: 0 0RF
Discontinued
metoprolol succinate 50 mg Tablet Extended Release 24 Hr
75 mg PO BID
hydrocodone-acetaminophen 5-325 mg Tablet
1 tab PO Q6HPRN PRN (Reason: PAIN)
glipizide 10 mg Tablet
10 mg PO BID
tramadol 50 mg Tablet
50 mg PO TIDPRN PRN (Reason: PAIN)
spironolactone 25 mg Tablet
25 mg PO QPM
simvastatin 40 mg Tablet
40 mg PO QPM
zolpidem [Ambien] 10 mg Tablet
10 mg PO HSPRN PRN (Reason: SLEEP)
Levemir FlexPen 100 unit/mL (3 mL) Insulin Pen
10 unit SC HS
acetaminophen [Tylenol] 325 mg Capsule
325 mg PO ONCE
omeprazole 20 mg Tablet,Delayed Release (Dr/Ec)
20 mg PO DAILY
coQ10 (ubiquinol) 100 mg Capsule
100 mg PO DAILY
methocarbamol 500 mg Tablet
500 mg PO TIDPRN PRN (Reason: muscle spasm)
oxybutynin chloride 10 mg Tablet Extended Release 24hr
10 mg PO DAILY
meclizine 25 mg Tablet
25 mg PO TIDPRN PRN (Reason: dizzy)
Discharge Orders:
Discharge Patient (As Directed); Ordered 12/07/23
Ordered By: Christina Nicholas
Care Plan Goals
Care Plan Goals:
Problem: Readiness for enhanced knowledge related to diagnosis and treatment plan
Goal: Understand your diagnosis and treatment plan needs, including medications if applicable.
Instructions: Know your diagnosis, underlying causes and treatment plan options, including medications if applicable. Consult with your health care team to learn about your diagnosis and treatment plan, including medications if applicable.
[2023-12-07] MEDS: BUMEX 2 MG PO (11:12)
--- NOTE | 2023-12-07 11:28 | W.PN.CARDCBS ---
Addendum entered and electronically signed by Scooby Norman MD 12/07/23 14:46:
I saw and examined the patient.
The Dry Chain Puller's note was reviewed and I agree with the note.
Comment:
GEN: No distress, awake, Ox3
HEENT: supple, anicteric, mmm
LUNGS: CTA, no wheezes/rales
CV: Reg with ectopy,, S1/S2, no gallop
ABD: soft, BS+, NT/ND
EXT: Trace edema
NEURO: Gross non-focal
SKIN: sternotomy
Plan:
Overall doing well. Still has marked first-degree AV block. Will hold off on beta-amrit while still on amiodarone for now. Will discharge him also on 200 mg p.o. twice daily.
Continue diuresis with Bumex 2 mg daily
Continue Eliquis, Farxiga, Entresto, aspirin and atorvastatin.
Original Note:
Today's Communication / Plan
-
[facility] today
Will not d/c to on BB due to long first degree AVB
Impression / Plan
-
Primary Care Physician: Dr. Jessica De La Cruz
Primary Ccnp: Dr. Dion Gastelum of [facility]
Impression:
Acute on chronic HFrEF
CM EF 35-40% by echo 11/23/23, improved to 50-55% while on milrinone at time of echo 12/04/23
Paroxysmal Afib
Chronic Eliquis OAC
2V CAD by cath 11/22/23
Severe Aortic stenosis MG 23mmHg, HOMERO 0.5cm2
Moderate - severe MR
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
s/p CABG x2 (in situ JIMENES to LAD and Ao-RSVG-OM/LPL), SAVR, MVR, LA MAZE, TANJA occlusion 12/01/23
severe high grade L subclavian stenosis and R carotid stenosis 50-69%
HTN
HLD
DM
GERD
Gout
Hyponatremia
cRBBB
ECHO 11/23/23: EF 35 to 40%, global hypokinesis, severely enlarged LA, moderately enlarged RA, mild MS with peak/mean gradients of 10/4 mmHg, moderate eccentric MR, severe with peak/mean gradients 56/35 mmHg, HOMERO 0.75 cm�, no AR, mild MN. New
reduction in EF compared to prior echo
MATTHIAS 11/27/23: EF 40%, mild global hypokinesis with slight worsening in septum, normal RV size with reduced systolic function, severe MR with thin, filamentous, hypermobile density concerning for a vegetation on the anterior mitral valve leaflet.
Echo 12/04/23: EF 50-55% on milrinone at 0.125, peak/mean gradients across the mitral valve are 9/3 mmHg, trace MR,�23 mm bioprosthetic aortic constanza replacement peak/mean gradients across the aortic valve are 21/10 mmHg, trace aortic regurgitation is
seen, mild TR, mildly dilated right ventricle with RV hypokinesis.
Plan:
-Outpatient dose of Bumex 2 mg PO daily restarted 12/06/23 and weight down 3 lbs overnight. Weight as low as 166 lbs with diuresis prior to surgery earlier this admission.
-ECG with long first degree AVB. Patient was taking Toprol XL 100 mg BID prior to admission, then Lopressor post-op and lately no BB due to hypotension. Due to long first degree AVB and the desire to cont amiodarone for rhythm control will not
restart outpatient dose of Toprol XL for now.
-Milrinone gtt weaned to off 12/05/23 AM. Epi stopped 12/02/23 and Dobut stopped 12/04/23
-EF 35-40% by echo earlier this admission. EF previously normal at [facility] in 11/2022. Then EF 50-55% while on milrinone by echo 12/04/23
-CM regimen includes Entresto 24/26 mg BID which is new this admission. Outpatient dose of spironolactone 25 mg daily on hold post-op. Farxiga 10 mg daily was newly this admission.
-Eliquis 5 mg BID restarted 12/05/23. Aspirin continued. Plavix stopped.
-LDL 36. Cont atorvastatin 40 mg daily which is new this admission, patient was taking simvastatin 40 mg daily prior to admission
HPI: 73-year-old woman with a past medical history of hypertension, insulin-dependent diabetes, gout, prior cellulitis, obesity, and severe aortic stenosis.� Echocardiography performed in November 2022 showed preserved LV function with a mean gradient
of 47 mmHg and eccentric mild to moderate mitral regurgitation.� She presented to the [facility] emergency room in August with congestive heart failure with new A-fib and rapid ventricular response.� She was rate controlled and diuresed
and discharged.� Attempts to restore normal sinus rhythm were unsuccessful and she was readmitted with recurrent heart failure on October 23.� She was again diuresed over a 2-week hospitalization followed by 1 week in rehab.� Cardioversion on
amiodarone was reattempted but she went back into atrial fibrillation.� Since being home she has felt better but is still not back to her baseline.
Progress Note - Ccnp
Subjective
Date of Service: December 07, 2023
She feels well, is going to [facility]
Objective
Labs:
12/06/23 04:50
12/07/23 04:46
Labs
Hgb 10.2 g/dL (12.0-16.0) L 12/06/23 04:50
Hct 32.7 % (37.0-47.0) L 12/06/23 04:50
Plt Count 222 10^3/uL (130-400) D 12/06/23 04:50
PT 21.8 Sec (11.4-14.6) H 12/01/23 14:10
INR 1.92 12/01/23 14:10
APTT 29.3 Sec (23.4-35.0) 12/01/23 14:10
Sodium 131 mmol/L (135-145) L 12/07/23 04:46
Potassium 4.3 mmol/L (3.5-5.1) 12/07/23 04:46
BUN 43 mg/dl (7-17) H 12/07/23 04:46
Creatinine 0.7 mg/dL (0.6-1.0) 12/07/23 04:46
Glucose 163 mg/dl (70-99) H 12/07/23 04:46
Vital Signs and I&O:
Vital Signs
Temp Pulse Resp BP Pulse Ox
97.2 F 73 22 123/74 98
12/07/23 06:59 12/07/23 11:12 12/07/23 06:59 12/07/23 11:12 12/07/23 08:20
Vital Signs
Temp Pulse Resp BP Pulse Ox
97.2 F 73 22 123/74 98
12/07/23 06:59 12/07/23 11:12 12/07/23 06:59 12/07/23 11:12 12/07/23 08:20
Intake & Output
12/05/23 12/06/23 12/07/23 12/08/23
06:59 06:59 06:59 06:59
Intake Total 683.2 / 706.0 872.8 / 872.8 1410 / 1410 280 / 280
Output Total 750 / 750 1125 / 1125 3800 / 3800
Balance -66.8 / -44.0 -252.2 / -252.2 -2390 / -2390 280 / 280
Physical Exam
Physical Exam
General: NAD
HEENT: EOMI
Heart: Reg with ectopy
Lungs: No audible wheeze
Extremities: +trace edema B/L LE
Neuro: Grossly nonfocal
--- NOTE | 2023-12-07 12:04 | CM ---
Chart reviewed. Patient is independent of ADLS, lives alone in a [address], [address] [facility], ambulates with a SPC and rolling walker. Patient is current with [facility]. PT/OT evaluations recommend Acute Rehab. Patient accepted to [facility] and she is willing to
go. I spoke to Daphne and a bed is available, patient just needs to be seen by physiatry. Transfer is set up for 5:30. Report to be called to [phone] and DC instructions fax to [phone]. Plan is for the patient to go to [facility].
--- NOTE | 2023-12-07 12:29 | WOUNDNOTE ---
[facility] RN NOTE: Patient visited for new sacral stage 2 PI. Chart reviewed. Met with patient while she was sitting in chair. Sacrum with 2x2 superficial stage 2 PI. Wound was cleaned and sacral foam applied. Air cushion added to chair (patient
previously removed air cushion and used under bilateral forearms). Heels intact. Patient is on a [employer] Max Air. This residential mortgage underwriter and RNLaina both instructed patient on importance of frequent position changes when in bed. Patient states
understanding. Patient reports fair appetite. Orders and discharge updated. LUZ MARINA Marina updated. Will follow as needed.
[2023-12-07] MEDS: NSS IV (13:44)
[2023-12-07 13:50] LABS: Glucose - Point of Care 178 mg/dl (70-99)
[2023-12-07 16:27] LABS: Glucose - Point of Care 164 mg/dl (70-99)
[2023-12-07] MEDS: LIPITOR 40 MG PO (16:44)
--- NOTE | 2023-12-07 18:18 | TRANSFER ---
[id number]. Report given to LUZ MARINA Kaminski. Pt transported via wheelchair by staff. Pt's son accompanied pt for transfer.
== END 2023-12-07 18:42 | DRG 212 ==
LOC: IVU 12:00
PROVIDERS: Clinical Nurse Specialist Acute Care; Hospitalist; Internal Medicine Interventional Cardiology; Nurse Practitioner; Nurse Practitioner Adult Health; Physician Assistant; Physician Assistant Medical; Student in an Organized Health Care Education/Training Program; ADMITTING PHYSICIAN Internal Medicine Interventional Cardiology; ATTENDING PHYSICIAN Thoracic Surgery (Cardiothoracic Vascular Surgery); CONSULT PHYSICIAN Internal Medicine; CONSULT PHYSICIAN Internal Medicine Critical Care Medicine; CONSULT PHYSICIAN Internal Medicine Infectious Disease; CONSULT PHYSICIAN Physical Medicine & Rehabilitation; CONSULT PHYSICIAN Thoracic Surgery (Cardiothoracic Vascular Surgery); PRIMARYCARE PHYSICIAN Family Medicine; REFERRING PHYSICIAN Internal Medicine Cardiovascular Disease
PROC: B2151ZZ Fluoroscopy of Left Heart using Low Osmolar Contrast (ICD-10-PCS; 2023-11-22)
PROC: B2111ZZ Fluoroscopy of Multiple Coronary Arteries using Low Osmolar Contrast (ICD-10-PCS; 2023-11-22)
PROC: 4A023N8 Measurement of Cardiac Sampling and Pressure, Bilateral, Percutaneous Approach (ICD-10-PCS; 2023-11-22)
PROC: 02L70CK Occlusion of Left Atrial Appendage with Extraluminal Device, Open Approach (ICD-10-PCS; 2023-12-01)
PROC: 02RG08Z Replacement of Mitral Valve with Zooplastic Tissue, Open Approach (ICD-10-PCS; 2023-12-01)
PROC: 02100Z9 Bypass Coronary Artery, One Artery from Left Internal Mammary, Open Approach (ICD-10-PCS; 2023-12-01)
PROC: 02RF08Z Replacement of Aortic Valve with Zooplastic Tissue, Open Approach (ICD-10-PCS; 2023-12-01)
PROC: 021009W Bypass Coronary Artery, One Artery from Aorta with Autologous Venous Tissue, Open Approach (ICD-10-PCS; 2023-12-01)
PROC: 5A1221Z Performance of Cardiac Output, Continuous (ICD-10-PCS; 2023-12-01)
PROC: B24BZZ4 Ultrasonography of Heart with Aorta, Transesophageal (ICD-10-PCS; 2023-12-01)
PROC: 06BP4ZZ Excision of Right Saphenous Vein, Percutaneous Endoscopic Approach (ICD-10-PCS; 2023-12-01)
PROC: 30233N1 Transfusion of Nonautologous Red Blood Cells into Peripheral Vein, Percutaneous Approach (ICD-10-PCS; 2023-12-02)
DX: I11.0 Hypertensive heart disease with heart failure (principal); I50.23 Acute on chronic systolic (congestive) heart failure; R57.0 Cardiogenic shock; J95.1 Acute pulmonary insufficiency following thoracic surgery; E87.1 Hypo-osmolality and hyponatremia; D62 Acute posthemorrhagic anemia; I48.21 Permanent atrial fibrillation; I25.110 Atherosclerotic heart disease of native coronary artery with unstable angina pectoris; I08.3 Combined rheumatic disorders of mitral, aortic and tricuspid valves; E78.5 Hyperlipidemia, unspecified; E11.65 Type 2 diabetes mellitus with hyperglycemia; E66.01 Morbid (severe) obesity due to excess calories; I27.20 Pulmonary hypertension, unspecified; Z68.35 Body mass index [BMI] 35.0-35.9, adult; Z79.4 Long term (current) use of insulin; Z95.1 Presence of aortocoronary bypass graft; Z79.01 Long term (current) use of anticoagulants
CPT/HCPCS: 88305; 88311; 93308; 36600; 70355; 71045; 71046; 71250; 80048; 80053; 80061; 81003; 81015; 82248; 82330; 82565; 82805; 82810; 82947; 82962; 83036; 83735; 84132; 84145; 84302; 84520; 85014; 85018; 85025; 85027; 85049; 85610; 85652; 85730; 86038; 86039; 86140; 86160; 86430; 86803; 86850; 86900; 86901; 86920; 87040; 87070; 87205; 87449; 87502; 87811; 93005; 93307; 93312; 93320; 93321; 93325; 93460; 93880; 94002; 94060; 94640; 97116; 97163; 97164; 97167; 97530; 97535; C1769; C1894; J2260; P9016; P9045; Q9957; Q9967